=== PATIENT | male | born 1960 | race African-American/Black ===

== ENCOUNTER 2021-05-03 17:09 | Inpatient (IN) | payer MEDICARE, MEDICAID, SELFPAY ==
--- NOTE | ~2021-05-03 | XR_ITS ---
EXAMINATION: XR abdomen/kub 1V EXAM DATE: 05/10/2021 13:32 INDICATION: Abdominal pain/Distention, Pt Had Pd Cath. TECHNIQUE: Frontal projection(s) of the abdomen for interpretation. Correlation is made to CT abdomen pelvis 05/07/2021. FINDINGS: There is peritoneal dialysis catheter. There is severely distended air-filled colon again noted with relatively collapsed descending and sigmoid colon, probably colonic ileus correlating with recent CT scan. Difficult to exclude partial obstruction from underlying colonic mass. Calcification s in the pelvis are believed to be phleboliths. There is no organomegaly. IMPRESSION: Severely distended colon mostly with gas but some stool. Most likely colonic ileus but c an't exclude partial obstruction from underlying colonic mass or stricture. Clinical correlation. Reviewed, dictated and finalized at location G. IMPRESSION: Severely distended colon mostly with gas but some stool. Most like ly colonic ileus but can't exclude partial obstruction from underlying colonic mass or stricture. Clinical correlation.
--- NOTE | ~2021-05-03 | XR_ITS ---
XR enema water soluble DATE: 05/13/2021 11:01 INDICATION: Evaluation for distal colonic obstruction TECHNIQUE: Single contrast water-soluble enema using dilute Omnipaque 350 3.7 minutes fluoroscopy time 179.692 DAP 29 images COMPARISON: 05/12/2021 KUB 05/03/2021 CT abdomen pelvis FINDINGS: There is residual fecal material within the colon, which prevents evaluation for polyps or polypoid mass. Minimal diverticulosis of the left colon. No stricture or obstruction of the colon. The mucosal patterns appear unremarkable. IMPRESSION: No colonic strictures detected Minimal diverticulosis of left colon Reviewed, dictated and finalized at Location A. Reviewed, dictated and finalized at location A.
--- NOTE | ~2021-05-03 | CT_ITS ---
EXAMINATION: CT abdomen pelvis wo con DATE: 05/07/2021 12:16 INDICATION: Peritonitis TECHNIQUE: Computed tomography (CT) of the abdomen and pelvis was performed without intravenous contr ast. The dose-length product (DLP) was 1441.73 mGy-cm. Automated exposure control and iterative recon struction technique were employed. COMPARISON: None FINDINGS: Minimal dependent atelectasis is present in the lung bases. The heart size is normal. There are small pleural effusions. Bilateral gynecomastia is noted. There is a trace pericardial effusion. There is a peritoneal dialysis catheter of the right lower quadrant which coils in the pelvis. There is a moderate volume of ascites. Trace foci of free intraperitoneal gas are seen in the upper abdome n. The liver, spleen, pancreas, gallbladder, and adrenal glands are normal. Cysts of the kidneys lambert ure up to 6 mm on the left. There is atrophy of the kidneys. No pathologically enlarged abdominal or pelvic lymph nodes are identified. There is moderate distention of the colon to the level of the sple dallas flexure. There is a right inguinal hernia containing fat and a large volume of ascites which exte nds into the scrotum. There is moderate lumbar spondylosis. IMPRESSION: 1. Colonic distention to the level of the splenic flexure without definite obstructing mass or strict ure identified, possible ileus. 2. Moderate volume of ascites and free intraperitoneal gas of the upper abdomen, likely related to pe ritoneal dialysis. 3. Right inguinal hernia containing fat and a large volume of ascites extending into the right scrotu m. Reviewed, dictated and finalized at location B. IMPRESSION: 1. Colonic distention to the level of the splenic flexure without definite obst ructing mass or stricture identified, possible ileus. 2. Moderate volume of ascites and free intraperitoneal gas of the upper abdomen , likely related to peritoneal dialysis. 3. Right inguinal hernia containing fat and a large volume of ascites extending into the right scrotum.
--- NOTE | ~2021-05-03 | XR_ITS ---
EXAMINATION: XR abdomen/kub 1V DATE: 05/12/2021 08:24 INDICATION: Adynamic ileus. TECHNIQUE: A supine view of the abdomen on 2 radiographs was obtained. COMPARISON: CT abdomen and pelvis 05/07/2021, abdomen radiographs 05/10/2021 FINDINGS: There are no dilated loops of small bowel. The transverse colon is distended. IMPRESSION: 1. Persistent distention of the transverse colon, which may be secondary to adynamic ileus or colonic obstruction. Reviewed, dictated and finalized at location A. IMPRESSION: 1. Persistent distention of the transverse colon, which may be secondary to karthikeyan namic ileus or colonic obstruction.
--- NOTE | ~2021-05-03 | XR_ITS ---
EXAMINATION: XR fl guide central line place DATE: 05/14/2021 15:43 INDICATION: Central line placement. TECHNIQUE: A single intraoperative fluoroscopic view of the chest was obtained. I was not present. Fl uoroscopy exposure time was 97 seconds. COMPARISON: Chest single view 05/14/2021 FINDINGS: Partially visualized is a right internal jugular central venous catheter. IMPRESSION: 1. Partially visualized right internal jugular central venous catheter. Reviewed, dictated and finalized at location A.
--- NOTE | ~2021-05-03 | XR_ITS ---
EXAMINATION: XR chest 1V portable INDICATION: Shortness of breath TECHNIQUE: Portable AP chest at 1346 hours COMPARISON: 06/14/2008 FINDINGS: There are minimal airspace opacities of the lung bases, right greater than left. There is n o pleural effusion or pneumothorax. The cardiomediastinal silhouette is normal. IMPRESSION: 1. Bibasilar airspace opacities, right greater than left, likely atelectasis. Reviewed, dictated and finalized at location B.
--- NOTE | ~2021-05-03 | XR_ITS ---
EXAMINATION: XR chest port-a-cath/central DATE: 05/14/2021 16:20 INDICATION: Central line placement. TECHNIQUE: A single frontal view of the chest was obtained. COMPARISON: Chest single view 05/04/2021, CT abdomen and pelvis 05/07/2021 FINDINGS: There is mild atelectasis in the mid and lower lung zones. No pleural effusion or pneumotho rax. The heart size is normal. There is a right internal jugular central venous catheter with tip in superior vena cava. IMPRESSION: 1. Central line tip in superior vena cava. 2. Mild atelectasis in the mid and lower lung zones. Reviewed, dictated and finalized at location A.
[2021-05-03 17:12] VITALS: PULSE 99; RESP 20; TEMP 37.1; O2SAT 99
--- NOTE | 2021-05-03 17:30 | PM.IMHP ---
H&P: HPI History of Present Illness Date/Time: 05/03/21 17:30 Chief Complaint: Abdominal pain. Narrative: This is a very pleasant 60-year-old male with end-stage renal disease on peritoneal dialysis, type 2 diabetes mellitus, and hypertension who presented to the emergency department from home for evaluation of abdominal pain. While doing dialysis 4 days ago the connector broke lose and dialysis fluid began to spray. He and his significant rapidly reattached the tubes and he is certain that the catheter was contaminated. Unfortunately he ran out of prophylactic antibiotics at home which he would typically take if something like this happened. Over the past several days he has gradually developed diffuse abdominal discomfort that is aching but occasionally sharp and shooting the with movement. Today he removed some of his peritoneal fluid today at the recommendation of a dialysis nurse and he was told to come to the ER after he noted it to be cloudy. Additionally he has been running a fever up to 102? today. Appetite has been okay and he denies nausea and vomiting. Review of Systems Review of Systems: Twelve systems were reviewed. No cold or flu symptoms. He denies chest pain and shortness of breath. No cough. No sick contacts. Except as documented, all other systems were reviewed and are negative. [facility] Past Medical History Medical History (Updated 05/03/21 @ 22:01 by Naya Trimble PA-C) Asthma End-stage renal disease on peritoneal dialysis Hypertension Insulin dependent type 2 diabetes mellitus Surgical History Surgical History (Updated 05/03/21 @ 21:58 by Naya Trimble PA-C) Amputation toe Presence of peritoneal dialysis catheter Family History Family History Father Diabetes mellitus Mother Diabetes mellitus Social History Social History (Updated 05/03/21 @ 21:59 by Naya Trimble PA-C) Social History: Surrogate decision maker: Corry Andrews (mother) or Ana Andrews (sister). Code status: Full code. Smoking status: Never smoker Second hand tobacco smoke exposure: No Alcohol intake: never Substance use: never Substance use type: does not use Additional living arrangements comments: Lives in [place] with his significant other of many years. He has 3 grown children. Additional occupation/education comments: Disabled. Spiritual care concerns: No Meds Home Medications and Allergies Home Medications Medication Instructions Recorded Confirmed Type B complex-vitamin C-folic acid 1 tablet PO DAILY 05/03/21 05/03/21 History [Christiana-Mirta] albuterol sulfate 2 puff INHALATION BID PRN 05/03/21 05/03/21 History aspirin 1 tablet PO DAILY 05/03/21 05/03/21 History calcium acetate(phosphat bind) 3 mg PO TIDWMEAL 05/03/21 05/03/21 History clonidine HCl 1 mg PO BID PRN 05/03/21 05/03/21 History fluoxetine 20 mg PO DAILY 05/03/21 05/03/21 History furosemide 80 mg PO BID 05/03/21 05/03/21 History insulin lispro protamin-lispro 10 unit SUBCUT BID 05/03/21 05/03/21 History [Humalog Mix 75-25(U-100)Insuln] nifedipine 90 mg PO DAILY 05/03/21 05/03/21 History potassium chloride 20 meq PO DAILY 05/03/21 05/03/21 History Allergies Allergy/AdvReac Type Severity Reaction Status Date / Time No Known Allergies Allergy Mild Unverified 06/14/08 16:10 Vital Signs Vital Signs - 24 hr 05/03/21 17:12 05/03/21 19:21 Temperature 98.8 F Pulse Rate 99 84 Respiratory Rate 20 20 Blood Pressure 139/85 Pulse Oximetry 99 99 Exam Narrative: General: Well-developed male in the semi-Connors position in bed. Weight: 129.5 kg. BMI: 32.2. HEENT: PERRL, EOMI. Sclerae anicteric. Oral mucosa moist. Neck: Supple. No JVD. Respiratory: Lungs are clear to auscultation bilaterally. Cardiovascular: Regular rate and rhythm with S1-S2. Gastrointestinal: Abdomen is slightly distended with was to percussion at the flanks. He is ex
[2021-05-03] MEDS: MORPHINE SULFATE (*CRX) 4 MG/ML INJ IV PUSH (17:43)
[2021-05-03 17:53] LABS: Basophils Percent Auto 0.4 % (0.2-1.2); Eosinophils Percent Auto 0.4 % (0-4.4); Hematocrit 32.1 % (42.0-52.0); Hemoglobin 10.2 g/dL (14.0-18.0); Immature Granulocyte Absolute 0.04 K/mm3 (0.00-0.031); Immature Granulocyte Percent A 0.8 % (0-0.5); Lymphocytes Absolute Auto 1.85 K/mm3 (0.9-3.2); Lymphocytes Percent Auto 38.9 % (18.3-44.2); Mean Corpuscular HGB Conc 31.8 g/dl (32-36); Mean Corpuscular Hemoglobin 30.8 pg (26-34); Mean Platelet Volume 9.6 fl (7.4-10.4); Monocytes Absolute Auto 0.4 K/mm3 (0.1-0.6); Monocytes Percent Auto 8.8 % (2.6-8.5); Neutrophils Absolute Auto 2.4 K/mm3 (1.3-6.7); Neutrophils Percent Auto 50.7 % (45.5-73.1); Platelet Count Result 244 k/mm3 (150-375); Red Blood Count 3.31 M/mm3 (4.6-6.20); White Blood Count 4.8 K/mm3 (4.5-10.0)
[2021-05-03 18:03] LABS: Alanine Aminotransferase 38 U/L (4-50); Alkaline Phosphatase 91 U/L (38-126); Anion Gap 10 mmol/L (8-16); Aspartate Amino Transferase 24 U/L (17-59); Bilirubin,Total 0.7 mg/dL (0.2-1.3); Blood Urea Nitrogen 59 mg/dL (9-20); Calcium 9.1 mg/dL (8.4-10.2); Carbon Dioxide 30 mmol/L (22-30); Chloride 95 mmol/L (98-107); Estimated CRCL calculation 11 ml/min; Estimated Glomerular Filt Rate 6; Glucose 180 mg/dL (65-110); Lipase 187 U/L (23-300); Potassium 3.8 mmol/L (3.4-5.0); Sodium 135 mmol/L (137-145)
--- NOTE | 2021-05-03 18:26 | ED.GENADULT ---
HPI - General Adult General Chief complaint: Abdominal Pain Stated complaint: peritonitis? Time Seen by Provider: 05/03/21 17:17 History of Present Illness HPI narrative: Patient is a 60-year-old male who presents ER with concerns for peritonitis. Patient reports he was give himself dialysis 4 days ago when the connector broke loose and dialysis fluid was spraying around. Him and his significant other rapidly reattached the tubes. He is concerned that he contaminated it. He did not have any antibiotic at home to take to try to prevent peritonitis. He then began developing abdominal pain over the next 3 days. He removed some of his peritoneal fluid today at the recommendation of a dialysis nurse and it was cloudy and he was instructed to come to the ER. Reports fever of 102 ?F earlier in the day. Pain is abdomen is worse with any type of moving. If he hits a bump while in the car he has a lot of pain. He has no nausea or vomiting or diarrhea. No alleviating factors other than sitting still. Related Data Home Medications Medication Instructions Recorded Confirmed B complex-vitamin C-folic acid 1 tablet PO DAILY 05/03/21 05/03/21 [Christiana-Mirta] albuterol sulfate 2 puff INHALATION BID PRN 05/03/21 05/03/21 aspirin 1 tablet PO DAILY 05/03/21 05/03/21 calcium acetate(phosphat bind) 3 mg PO TIDWMEAL 05/03/21 05/03/21 clonidine HCl 1 mg PO BID PRN 05/03/21 05/03/21 fluoxetine 20 mg PO DAILY 05/03/21 05/03/21 furosemide 80 mg PO BID 05/03/21 05/03/21 insulin lispro protamin-lispro 10 unit SUBCUT BID 05/03/21 05/03/21 [Humalog Mix 75-25(U-100)Insuln] nifedipine 90 mg PO DAILY 05/03/21 05/03/21 potassium chloride 20 meq PO DAILY 05/03/21 05/03/21 Allergies Allergy/AdvReac Type Severity Reaction Status Date / Time No Known Allergies Allergy Mild Unverified 06/14/08 16:10 Review of Systems Review of Systems: All systems reviewed & are unremarkable except as noted in HPI and below Constitutional: Constitutional: Denies chills, Denies fever(s) and Denies weakness ENT: Denies nasal congestion and Denies sore throat Cardiovascular: Cardiovascular: Denies chest pain, Denies rapid heart rate and Denies radiating jaw, neck or arm pain Respiratory: Respiratory: Denies cough and Denies dyspnea Gastrointestinal: Gastrointestinal: Reports abdominal pain, Denies diarrhea, Denies nausea and Denies vomiting Neurologic: Denies headache(s), Denies focal weakness and Denies numbness PMFSH Past Medical History Medical History (Updated 05/03/21 @ 21:26 by Sotero Antoine MD) Diabetes ESRD (end stage renal disease) Hypertension Presence of peritoneal dialysis catheter Surgical History Surgical History (Updated 05/03/21 @ 21:26 by Sotero Antoine MD) Amputation toe Family History Family History (Updated 05/03/21 @ 20:16 by Marlene Dailey RN) Father Diabetes mellitus Mother Diabetes mellitus Social History Social History Smoking status: Never smoker Second hand tobacco smoke exposure: No Alcohol intake: never Substance use: never Substance use type: does not use Spiritual care concerns: No Exam Narrative: GENERAL: Well-appearing, well-nourished, and in no acute distress. HEAD: Normocephalic, atraumatic. ENT: Mucous membranes moist. NECK: Supple. CHEST: Clear to auscultation. No respiratory distress. HEART: Regular rate and rhythm. Normal peripheral pulses. ABDOMEN: Soft, diffusely tender with guarding, normal-appearing dialysis site in left lower quadrant. Nondistended. EXTREMITIES: Normal range of motion. No edema. SKIN: Warm, dry, no rash. NEURO: Alert and oriented x3. PSYCH: Normal mood and affect. Course Course Emergency Course: Discussed case with Dr. Campos. He like patient received vancomycin and 1 g of cefepime daily. He will contact dialysis nurse. Patient will be admitted to hospitalist service. Vital Signs Vital signs: Vital Signs Temperature 98.8 F 05/03/21
[2021-05-03 19:21] VITALS: BP 139/85; PULSE 84; RESP 20; O2SAT 99
[2021-05-03 19:45] VITALS: BP 120/50; PULSE 54; RESP 20; TEMP 37; O2SAT 97
[2021-05-03 20:11] VITALS: BMI 32.1
[2021-05-04] MEDS: MORPHINE SULFATE (*CRX) 4 MG/ML INJ IV PUSH ×2 (02:23→07:58)
[2021-05-04 06:00] VITALS: BP 140/77; PULSE 96; RESP 16; TEMP 36.8; O2SAT 96
[2021-05-04 06:10] LABS: Hematocrit 29.7 % (42.0-52.0); Hemoglobin 9.4 g/dL (14.0-18.0); Mean Corpuscular HGB Conc 31.6 g/dl (32-36); Mean Corpuscular Hemoglobin 30.1 pg (26-34); Mean Corpuscular Volume 95.2 fl (80-100); Mean Platelet Volume 9.5 fl (7.4-10.4); Platelet Count Result 231 k/mm3 (150-375); Red Blood Count 3.12 M/mm3 (4.6-6.20); Red Cell Distribution Width 14.6 % (11.5-14.5); White Blood Count 4.6 K/mm3 (4.5-10.0)
[2021-05-04 06:40] LABS: Albumin Level 3.5 g/dL (3.5-5.1); Anion Gap 9 mmol/L (8-16); Blood Urea Nitrogen 58 mg/dL (9-20); CRP 26.1 mg/dL (<1.0); Calcium 8.8 mg/dL (8.4-10.2); Carbon Dioxide 30 mmol/L (22-30); Chloride 94 mmol/L (98-107); Estimated CRCL calculation 12 ml/min; Estimated Glomerular Filt Rate 7; Glucose 202 mg/dL (65-110); Magnesium 1.6 mg/dL (1.6-2.3); Phosphorus 3.7 mg/dL (2.5-4.5); Potassium 3.9 mmol/L (3.4-5.0); Sodium 133 mmol/L (137-145)
[2021-05-04 08:00] VITALS: PULSE 96; RESP 16; O2SAT 96
[2021-05-04 08:23] LABS: Glucose Point of Care 203 mg/dl (65-105)
[2021-05-04] MEDS: FUROSEMIDE 80 MG TABLET PO ×2 (08:57→17:52)
[2021-05-04] MEDS: VITAMIN B CMPLX/VIT C/FOLIC AC 1 CAPSULE 1 CAP PO (08:57)
[2021-05-04] MEDS: ASPIRIN 81 MG CHEWABLE TABLET PO (08:57)
[2021-05-04] MEDS: FLUoxetine HCL 20 MG CAPSULE PO (08:57)
[2021-05-04] MEDS: NIFEdipine 30 MG TAB.ER.24 90 MG PO (08:57)
[2021-05-04] MEDS: POTASSIUM CHLORIDE 20 MEQ TABLET PO (09:03)
[2021-05-04] MEDS: HEPARIN SODIUM 5,000 UNITS/ML VIAL 5000 UNITS SUB-Q ×2 (09:03→20:08)
[2021-05-04] MEDS: INSULIN ASPART (*BKC) 100 UNITS/ML SUB-Q (09:03)
[2021-05-04 09:46] LABS: Vancomycin Random 12.8 ug/mL (10-20)
[2021-05-04] MEDS: CALCIUM ACETATE 667 MG TABLET 2001 MG PO ×3 (09:47→17:52)
[2021-05-04 11:56] LABS: Glucose Point of Care 111 mg/dl (65-105)
[2021-05-04] MEDS: HYDROcodone/acetaminophen (*CRX) 5-325 MG TABLET 1 TAB PO ×3 (12:20→22:56)
[2021-05-04 14:00] VITALS: BP 141/75; PULSE 80; RESP 19; TEMP 36.2; O2SAT 100
--- NOTE | 2021-05-04 15:06 | PM.CNNEP ---
Assessment and Plan Assessment and plan (1) End stage renal disease: Code(s): N18.6 - End stage renal disease Status: Chronic Assessment and Plan: continue CCPD while hospitalized follow electrolytes, volume status, and clearance (2) Peritonitis: Code(s): K65.9 - Peritonitis, unspecified Status: Acute Assessment and Plan: associated with potential contamination doing peritoneal dialysis follow culture data continue vancomycin and cefepime for now follow-up on PD fluid cell count (3) Hypertension: Code(s): I10 - Essential (primary) hypertension Status: Chronic Assessment and Plan: reasonable control at this time continue home medications follow trend of hemodynamics (4) Anemia: Code(s): D64.9 - Anemia, unspecified Status: Chronic Assessment and Plan: due to ESRD and acute illness Epogen while hospitalized follow trend of H/H (5) Diabetes: Code(s): E11.9 - Type 2 diabetes mellitus without complications Status: Chronic Assessment and Plan: follow accuchecks glycemic control Will continue to follow. History of Present Illness Reason for Consult Consult date: 05/04/21 Reason for consult: end stage renal disease Chief Complaint Chief complaint: Peritonitis (dialysis related) History of Present Illness Narrative: The patient is a very pleasant 60-year-old male with a past medical history as outlined below who presented to [facility] Emergency room for further evaluation of abdominal pain. According to the patient, approximately 4 days prior to his presentation to the emergency room, 1 of the connections for his peritoneal dialysis broke loose causing a potential contamination. He and his apparently reattached the tubes as soon as possible when this occurred. Normally, he would take prophylactic antibiotics for a situation like this but apparently he did not have any at home. For reasons that are not clear to me, he did not call the peritoneal dialysis nurse button bradder for further instructions. Unfortunately, in the last few days, he has had diffuse abdominal pain and discomfort particularly with any type of movement. He eventually did contact the peritoneal dialysis nurse button bradder and after telling the story as mentioned, recommended him going to the ER for further evaluation Particularly since he stated that his PD fluid looked a bit cloudy. Workup and evaluation emergency room demonstrated the patient to be hemodynamically stable but unclear discomfort/pain secondary to his abdominal discomfort. Routine blood test demonstrated labs consistent with his known history of end-stage renal disease without any critical electrolyte abnormalities. The patient did report a fever as high as 102 ? on the day of presentation as well. He denied any nausea or vomiting and reports that his appetite has been doing reasonably well. His only major complaint is that of the abdominal pain as already mentioned. Given the history as mentioned above, appropriate cultures were obtained and he was started on IV vancomycin and cefepime on the presumptive diagnosis of dialysis associated peritonitis. He was subsequent admitted to the hospital for further evaluation and therapy. Renal consultation was requested due to his end-stage renal disease. The patient normally does peritoneal dialysis every evening under the care of Dr. Bianchi at [facility]. As far as I am aware, he is compliant with his peritoneal dialysis treatments and has had not had any recent issues or problems with regard to volume overload, hyperkalemia, uremia, or any other complications with his peritoneal dialysis. He does report that he has had peritonitis before in the past that was successfully treated without any significant complication. Currently, at the time my visit, he feels somewhat better since his admission. He di
--- NOTE | 2021-05-04 15:41 | PM.IMPN ---
Progress Note: A&P Assessment and Plan (1) Peritonitis, dialysis-associated: Code(s): T85.71XA - Infection and inflammatory reaction due to peritoneal dialysis catheter, initial encounter Status: Acute Assessment and Plan: Patient presented with abdominal pain and cloudy peritoneal fluid 4 days following contamination of his PD catheter Continue cefepime and vancomycin Peritoneal fluid culture is pending Blood cultures pending Patient without leukocytosis, fever. CRP noted to be elevated and will continue to monitor Analgesics available as needed for abdominal pain (2) End-stage renal disease on peritoneal dialysis: Code(s): N18.6 - End stage renal disease; Z99.2 - Dependence on renal dialysis Status: Acute Assessment and Plan: Maintained on peritoneal dialysis Appreciate nephrology consultation for dialysis management Patient has been set up for dialysis to be continued during admission (3) Insulin dependent type 2 diabetes mellitus: Code(s): E11.9 - Type 2 diabetes mellitus without complications; Z79.4 - [facility] (current) use of insulin Status: Acute Assessment and Plan: A1c is 5.0 Blood sugars elevated on presentation have improved Continue with Accu-Cheks, sliding scale insulin, and hypoglycemic protocol Continue home Humalog 75/25 10 units b.i.d. (4) Hypertension: Code(s): I10 - Essential (primary) hypertension Status: Acute Assessment and Plan: Blood pressure reviewed and has been controlled. Last BP 141/75 Continue nifedipine Monitor blood pressure trends (5) Normocytic anemia: Code(s): D64.9 - Anemia, unspecified Status: Acute Assessment and Plan: Likely chronic secondary to ESRD Monitor H&H Subjective Date/time seen: 05/04/21 15:41 Interval history: Date of service: 05/04/2021 Himanshu Andrews is a 60-year-old male with a history of type 2 diabetes mellitus, hypertension, any ESRD on peritoneal dialysis (established with automobile locator Dr. Bianchi) who is seen in follow-up for dialysis associated peritonitis. He is feeling a bit better today. He still complains abdominal pain in his mid abdomen and around the umbilicus that he describes as an aching or cramping sensation. He states this pain gets up to about 8/10. He did peritoneal dialysis last night and this morning he noticed that the fluid was not clear. He states there was no color to a but it was cloudy. He denies fevers or chills. Denies nausea or vomiting. He is tolerating his diet. He does make urine and has not been any issues urinating. He is able to get up and walk to the bathroom. He denies dizziness, lightheadedness, weakness. Denies shortness of breath, cough, chest pain, or palpitations. Review of Systems Review of Systems: All systems reviewed & are unremarkable except as noted in HPI and below Exam Narrative: General: Well-nourished, well-appearing 60 year-old male, sitting up in bed, comfortable, NARD Neuro: awake, alert and oriented x4, speech clear, no focal neuro deficits noted HEENMT: normocephalic, atraumatic, EOMI, sclerae anicteric, moist oral mucosa Respiratory: clear to auscultation bilaterally, nonlabored breathing Cardio: regular rate, regular rhythm with S1-S2 Abdomen: nondistended, PD catheter in the left lower quadrant, normoactive bowel sounds, soft, minimally tender to palpation in periumbilical region, no rigidity or guarding Extremities: no edema, erythema, or tenderness to palpation, DP pulses 2+ bilaterally Skin: no rashes or lesions, warm and dry Psych: appropriate mood and affect, judgment and insight intact Objective Data Vital Signs Vital Signs: Vital Signs - 24 hr 05/03/21 17:12 05/03/21 19:21 05/03/21 19:45 Temperature 98.8 F 98.6 F Pulse Rate 99 84 54 L Respiratory Rate 20 20 20 Blood Pressure 139/85 120/50 L Pulse Oximetry 99 99 97 05/04/21 06:00 05/04/21 08:00 05/04/21
[2021-05-04 16:21] LABS: Glucose Point of Care 181 mg/dl (65-105)
[2021-05-04 18:16] VITALS: BP 141/75; PULSE 80; RESP 19; TEMP 36.2
[2021-05-04 18:17] VITALS: RESP 19; TEMP 36.2
[2021-05-04 20:40] LABS: Glucose Point of Care 132 mg/dl (65-105)
[2021-05-04] MEDS: MORPHINE SULFATE (*CRX) 2 MG/ML INJ IV PUSH (21:00)
[2021-05-04 22:00] VITALS: BP 166/81; PULSE 81; RESP 16; TEMP 36.3; O2SAT 99
[2021-05-05 02:36] VITALS: O2SAT 99
[2021-05-05] MEDS: MORPHINE SULFATE (*CRX) 2 MG/ML INJ IV PUSH ×2 (02:37→08:31)
[2021-05-05] MEDS: HYDROcodone/acetaminophen (*CRX) 5-325 MG TABLET 1 TAB PO (04:31)
[2021-05-05 05:26] VITALS: BP 156/81; PULSE 80; RESP 18; TEMP 36.1; O2SAT 100
[2021-05-05 06:36] LABS: Hematocrit 28.1 % (42.0-52.0); Hemoglobin 9.4 g/dL (14.0-18.0); Mean Corpuscular HGB Conc 33.5 g/dl (32-36); Mean Corpuscular Hemoglobin 31.3 pg (26-34); Mean Corpuscular Volume 93.7 fl (80-100); Mean Platelet Volume 9.1 fl (7.4-10.4); Platelet Count Result 238 k/mm3 (150-375); Red Cell Distribution Width 14.4 % (11.5-14.5); White Blood Count 5.2 K/mm3 (4.5-10.0)
[2021-05-05 06:53] LABS: Anion Gap 6 mmol/L (8-16); Blood Urea Nitrogen 56 mg/dL (9-20); Calcium 9.1 mg/dL (8.4-10.2); Carbon Dioxide 33 mmol/L (22-30); Chloride 93 mmol/L (98-107); Estimated CRCL calculation 11 ml/min; Estimated Glomerular Filt Rate 6; Glucose 164 mg/dL (65-110); Potassium 4.3 mmol/L (3.4-5.0); Sodium 132 mmol/L (137-145)
[2021-05-05 07:59] LABS: Glucose Point of Care 148 mg/dl (65-105)
[2021-05-05] MEDS: CALCIUM ACETATE 667 MG TABLET 2001 MG PO ×3 (08:10→16:24)
[2021-05-05] MEDS: ASPIRIN 81 MG CHEWABLE TABLET PO (08:12)
[2021-05-05] MEDS: FLUoxetine HCL 20 MG CAPSULE PO (08:13)
[2021-05-05] MEDS: FUROSEMIDE 80 MG TABLET PO ×2 (08:13→16:24)
[2021-05-05] MEDS: NIFEdipine 30 MG TAB.ER.24 90 MG PO (08:14)
[2021-05-05] MEDS: VITAMIN B CMPLX/VIT C/FOLIC AC 1 CAPSULE 1 CAP PO (08:16)
[2021-05-05] MEDS: POTASSIUM CHLORIDE 20 MEQ TABLET PO (08:18)
[2021-05-05] MEDS: HEPARIN SODIUM 5,000 UNITS/ML VIAL 5000 UNITS SUB-Q ×2 (08:19→22:31)
[2021-05-05 09:51] LABS: Vancomycin Random 20.4 ug/mL (10-20)
--- NOTE | 2021-05-05 11:45 | P.PNNP_ITS ---
Progress Note: A&P Assessment and Plan (1) End stage renal disease: Code(s): N18.6 - End stage renal disease Status: Chronic Assessment and Plan: * continue CCPD while hospitalized * follow electrolytes, volume status, and clearance (2) Peritonitis: Code(s): K65.9 - Peritonitis, unspecified Status: Acute Assessment and Plan: * associated with potential contamination doing peritoneal dialysis * PD fluid culture with GNB * continue vancomycin and cefepime for now (but probably ok to d/c vancomycin) * follow-up on PD fluid cell count (3) Hypertension: Code(s): I10 - Essential (primary) hypertension Status: Chronic Assessment and Plan: * reasonable control at this time * continue home medications * follow trend of hemodynamics (4) Anemia: Code(s): D64.9 - Anemia, unspecified Status: Chronic Assessment and Plan: * due to ESRD and acute illness * Epogen while hospitalized * follow trend of H/H (5) Diabetes: Code(s): E11.9 - Type 2 diabetes mellitus without complications Status: Chronic Assessment and Plan: * follow accuchecks * glycemic control Will continue to follow. Subjective Date/time seen: 05/05/21 11:45 Tolerated peritoneal dialysis treament yesterday evening without difficulty although he was in positive fluid balance; abdominal pain still present but better in comparison to admission; eating and drinking okay; no other issues/events overnight or earlier this AM. Exam Narrative: General: WD/WN AA male in NAD Heart: normal S1 and S2; no rub Lungs: clear to auscultation Abdomen: soft, mild TTP, nondistended, positive bowel sounds Extremities: no cyanosis or clubbing; no edema Skin: warm and dry Objective Data Vital Signs Vital Signs: Vital Signs Temp Pulse Resp BP Pulse Ox 05/05/21 05:26 36.1 C L 80 18 156/81 H 100 05/05/21 02:36 99 05/04/21 22:00 36.3 C L 81 16 166/81 H 99 05/04/21 18:17 36.2 C L 19 05/04/21 18:16 36.2 C L 80 19 141/75 H 05/04/21 14:00 36.2 C L 80 19 141/75 H 100 Intake/Output Intake/Output: Intake & Output 03/19/05/03/21 05/04/21 05/05/21 23:59 23:59 23:59 23:59 Intake Total 50 1190 100 Output Total 1311 -469 Balance 50 -163 837 Meds/Results Medications: Active Medications Generic Name Dose Route Start Last Admin Trade Name Freq PRN Reason Stop Dose Admin Acetaminophen 650 mg 05/04/21 15:58 Acetaminophen 325 Mg Tablet PO Q4H PRN Pain 1-5 Hydrocodone Bitart/Acetaminophen 1 tab 05/04/21 15:58 05/05/21 04:31 Hydrocodone/Acetaminophen (*Crx) 5-325 Mg Tablet PO 1 tab Q4H PRN Administration Pain Rated 6-10 Albuterol 2 puff 05/03/21 22:09 Albuterol Sulfate (*Sp) Aerosol 1 Puff INHALATION Q12HRT PRN Adequate Ventilation Aspirin 81 mg 05/04/21 09:00 05/05/21 08:12 Aspirin 81 Mg Chewable Tablet PO 81 mg DAILY KELLIE Administration Calcium Acetate 2,001 mg 05/04/21 08:00 05/05/21 08:10 Calcium Acetate 667 Mg Tablet PO 2,001 mg TIDWM KELLIE Administration Clonidine HCl
--- NOTE | 2021-05-05 11:45 | PM.PNNEP ---
Progress Note: A&P Assessment and Plan (1) End stage renal disease: Code(s): N18.6 - End stage renal disease Status: Chronic Assessment and Plan: continue CCPD while hospitalized follow electrolytes, volume status, and clearance (2) Peritonitis: Code(s): K65.9 - Peritonitis, unspecified Status: Acute Assessment and Plan: associated with potential contamination doing peritoneal dialysis PD fluid culture with GNB continue vancomycin and cefepime for now (but probably ok to d/c vancomycin) follow-up on PD fluid cell count (3) Hypertension: Code(s): I10 - Essential (primary) hypertension Status: Chronic Assessment and Plan: reasonable control at this time continue home medications follow trend of hemodynamics (4) Anemia: Code(s): D64.9 - Anemia, unspecified Status: Chronic Assessment and Plan: due to ESRD and acute illness Epogen while hospitalized follow trend of H/H (5) Diabetes: Code(s): E11.9 - Type 2 diabetes mellitus without complications Status: Chronic Assessment and Plan: follow accuchecks glycemic control Will continue to follow. Subjective Date/time seen: 05/05/21 11:45 Tolerated peritoneal dialysis treament yesterday evening without difficulty although he was in positive fluid balance; abdominal pain still present but better in comparison to admission; eating and drinking okay; no other issues/events overnight or earlier this AM. Exam Narrative: General: WD/WN AA male in NAD Heart: normal S1 and S2; no rub Lungs: clear to auscultation Abdomen: soft, mild TTP, nondistended, positive bowel sounds Extremities: no cyanosis or clubbing; no edema Skin: warm and dry Objective Data Vital Signs Vital Signs: Vital Signs Temp Pulse Resp BP Pulse Ox 05/05/21 05:26 36.1 C L 80 18 156/81 H 100 05/05/21 02:36 99 05/04/21 22:00 36.3 C L 81 16 166/81 H 99 05/04/21 18:17 36.2 C L 19 05/04/21 18:16 36.2 C L 80 19 141/75 H 05/04/21 14:00 36.2 C L 80 19 141/75 H 100 Intake/Output Intake/Output: Intake & Output 05/02/21 05/03/21 05/04/21 05/05/21 23:59 23:59 23:59 23:59 Intake Total 50 1190 100 Output Total 5687 -905 Balance 50 -555 837 Meds/Results Medications: Active Medications Generic Name Dose Route Start Last Admin Trade Name Freq PRN Reason Stop Dose Admin Acetaminophen 650 mg 05/04/21 15:58 Acetaminophen 325 Mg Tablet PO Q4H PRN Pain 1-5 Hydrocodone Bitart/Acetaminophen 1 tab 05/04/21 15:58 05/05/21 04:31 Hydrocodone/Acetaminophen (*Crx) 5-325 Mg Tablet PO 1 tab Q4H PRN Administration Pain Rated 6-10 Albuterol 2 puff 05/03/21 22:09 Albuterol Sulfate (*Sp) Aerosol 1 Puff INHALATION Q12HRT PRN Adequate Ventilation Aspirin 81 mg 05/04/21 09:00 05/05/21 08:12 Aspirin 81 Mg Chewable Tablet PO 81 mg DAILY KELLIE Administration Calcium Acetate 2,001 mg 05/04/21 08:00 05/05/21 08:10 Calcium Acetate 667 Mg Tablet PO 2,001 mg TIDWM KELLIE Administration Clonidine HCl 0.2 mg 05/04/21 16:02 Clonidine Hcl 0.2 Mg Tablet PO BID PRN Hypertension Dextrose 12.5 gm 05/03/21 22:06 Dextrose 50% 25 Gm/50 Ml Syringe IV PUSH PRN PRN Hypoglycemia Protocol Fluoxetine HCl 20 mg 05/04/21 09:00 05/05/21 08:13 Fluoxetine Hcl 20 Mg Capsule PO 20 mg DAILY KELLIE Administration Furosemide 80 mg 05/04/21 09:00 05/05/21 08:13 Furosemide 80 Mg Tablet PO 80 mg BID KELLIE Administration Glucagon 1 mg 05/03/21 22:06 Glucagon For Inj 1 Mg Vial IM PRN PRN Hypoglycemia Protocol Glucose 15 gm 05/03/21 22:06 Glucose Oral Gel 15 Gm Of Glucse In 37.5 Gm Tube PO PRN PRN Hypoglycemia Protocol Heparin Sodium (Porcine) 5,000 units 05/04/21 09:00 05/05/21 08:19 Heparin Sodium 5,000 Units/Ml Vial
[2021-05-05 11:58] LABS: Glucose Point of Care 54 mg/dl (65-105)
[2021-05-05 12:27] LABS: Glucose Point of Care 66 mg/dl (65-105)
[2021-05-05 12:48] LABS: Glucose Point of Care 65 mg/dl (65-105)
[2021-05-05 13:29] LABS: Glucose Point of Care 104 mg/dl (65-105)
[2021-05-05 14:00] VITALS: BP 152/82; PULSE 84; RESP 18; TEMP 36.3; O2SAT 99
--- NOTE | 2021-05-05 14:07 | PM.IMPN ---
Progress Note: A&P Assessment and Plan (1) Peritonitis, dialysis-associated: Code(s): T85.71XA - Infection and inflammatory reaction due to peritoneal dialysis catheter, initial encounter Status: Acute Assessment and Plan: Patient presented with abdominal pain and cloudy peritoneal fluid 4 days following contamination of his PD catheter Preliminary peritoneal fluid culture with Gram-negative bacilli Blood cultures pending, negative to date Continue antibiotic regimen, IV vancomycin and cefepime while awaiting abdominal fluid culture results Patient without leukocytosis, fever. CRP with slight upward trend, will continue to monitor Analgesics available as needed for abdominal pain (2) End-stage renal disease on peritoneal dialysis: Code(s): N18.6 - End stage renal disease; Z99.2 - Dependence on renal dialysis Status: Acute Assessment and Plan: Maintained on peritoneal dialysis Appreciate nephrology consultation for dialysis management Patient has been set up for peritoneal dialysis to be continued during admission Monitor volume status and electrolytes (3) Insulin dependent type 2 diabetes mellitus: Code(s): E11.9 - Type 2 diabetes mellitus without complications; Z79.4 - [facility] (current) use of insulin Status: Acute Assessment and Plan: A1c is 5.0 Blood sugars reviewed and have been stable Patient did have episode of hypoglycemia this afternoon down to 54. He was asymptomatic with this Discontinue home Humalog 75/25 10 units b.i.d.. Patient has stopped taking this and has been off for some time. This likely contributed to hypoglycemic episode Continue with Accu-Cheks, low-dose sliding scale insulin, and hypoglycemic protocol (4) Hypertension: Code(s): I10 - Essential (primary) hypertension Status: Chronic Assessment and Plan: Blood pressure reviewed and has been reasonably controlled. Last BP 156/81 Continue nifedipine Monitor blood pressure trends (5) Normocytic anemia: Code(s): D64.9 - Anemia, unspecified Status: Acute Assessment and Plan: Likely chronic secondary to ESRD Monitor H&H - remaining stable Subjective Date/time seen: 05/05/21 14:07 Interval history: Date of service: 05/05/2021 Himanshu Andrews is a 60-year-old male with a history of type 2 diabetes mellitus, hypertension, any ESRD on peritoneal dialysis (established with chain tender Dr. Bianchi) who is seen in follow-up for dialysis associated peritonitis. Feeling better today. He continues to endorse abdominal pain, though notes that has improved. He rates pain is 7 of 10. He notes today that he has had bacterial peritonitis before and his pain feels the same as it did last. He does still have an appetite and is tolerating his diet. He endorses a mild abdominal fullness. His last bowel movement was 2 days ago. Denies fevers or chills. He denies any difficulties with urination denies shortness breath, cough, chest pain, dizziness, lightheadedness, weakness. He is able to ambulate independently. Review of Systems Review of Systems: All systems reviewed & are unremarkable except as noted in HPI and below Exam Narrative: General: Well-nourished, well-appearing 60 year-old male, sitting up in bed, comfortable, NARD Neuro: awake, alert and oriented x4, speech clear, no focal neuro deficits noted HEENMT: normocephalic, atraumatic, EOMI, sclerae anicteric, moist oral mucosa Respiratory: clear to auscultation bilaterally, nonlabored breathing Cardio: regular rate, regular rhythm with S1-S2 Abdomen: nondistended, PD catheter in the left lower quadrant, normoactive bowel sounds, soft, nontender to palpation, no rigidity or guarding Extremities: no edema, erythema, or tenderness to palpation, DP pulses 2+ bilaterally Skin: no rashes or lesions, warm and dry Psych: appropriate mood and affect, judgment and insight intact Objective Da
[2021-05-05 16:39] LABS: Glucose Point of Care 115 mg/dl (65-105)
[2021-05-05 20:28] LABS: Glucose Point of Care 140 mg/dl (65-105)
[2021-05-05 21:20] VITALS: O2SAT 99
[2021-05-05 22:00] VITALS: BP 144/78; PULSE 88; RESP 18; TEMP 36.3; O2SAT 99
[2021-05-06] MEDS: MORPHINE SULFATE (*CRX) 2 MG/ML INJ IV PUSH ×3 (01:30→23:22)
[2021-05-06] MEDS: HYDROcodone/acetaminophen (*CRX) 5-325 MG TABLET 1 TAB PO ×2 (03:25→12:08)
[2021-05-06 06:00] VITALS: BP 155/83; PULSE 86; RESP 18; TEMP 36.5; O2SAT 99
[2021-05-06 06:35] LABS: Hematocrit 30.3 % (42.0-52.0); Hemoglobin 9.9 g/dL (14.0-18.0); Mean Corpuscular HGB Conc 32.7 g/dl (32-36); Mean Corpuscular Hemoglobin 30.5 pg (26-34); Mean Corpuscular Volume 93.2 fl (80-100); Mean Platelet Volume 9.4 fl (7.4-10.4); Platelet Count Result 320 k/mm3 (150-375); Red Blood Count 3.25 M/mm3 (4.6-6.20); Red Cell Distribution Width 14.1 % (11.5-14.5); White Blood Count 6.6 K/mm3 (4.5-10.0)
[2021-05-06 07:00] LABS: Anion Gap 5 mmol/L (8-16); Blood Urea Nitrogen 57 mg/dL (9-20); Calcium 9.5 mg/dL (8.4-10.2); Carbon Dioxide 34 mmol/L (22-30); Chloride 93 mmol/L (98-107); Estimated CRCL calculation 11 ml/min; Estimated Glomerular Filt Rate 6; Glucose 177 mg/dL (65-110); Potassium 4.1 mmol/L (3.4-5.0); Sodium 132 mmol/L (137-145)
[2021-05-06 07:37] LABS: CRP 36.6 mg/dL (<1.0)
[2021-05-06 08:22] VITALS: O2SAT 99
[2021-05-06 08:26] LABS: Glucose Point of Care 150 mg/dl (65-105)
[2021-05-06] MEDS: NIFEdipine 30 MG TAB.ER.24 90 MG PO (09:27)
[2021-05-06] MEDS: FLUoxetine HCL 20 MG CAPSULE PO (09:27)
[2021-05-06] MEDS: VITAMIN B CMPLX/VIT C/FOLIC AC 1 CAPSULE 1 CAP PO (09:27)
[2021-05-06] MEDS: cloNIDine HCL 0.2 MG TABLET PO (09:28)
[2021-05-06] MEDS: CALCIUM ACETATE 667 MG TABLET 2001 MG PO ×3 (09:28→17:36)
[2021-05-06] MEDS: ASPIRIN 81 MG CHEWABLE TABLET PO (09:28)
[2021-05-06] MEDS: FUROSEMIDE 80 MG TABLET PO ×2 (09:28→17:35)
[2021-05-06 10:00] LABS: Vancomycin Trough 17.7 ug/mL (10.0-20.0)
--- NOTE | 2021-05-06 11:12 | PM.IMPN ---
Progress Note: A&P Assessment and Plan (1) Peritonitis, dialysis-associated: Code(s): T85.71XA - Infection and inflammatory reaction due to peritoneal dialysis catheter, initial encounter Status: Acute Assessment and Plan: Patient presented with abdominal pain and cloudy peritoneal fluid 4 days following contamination of his PD catheter Preliminary peritoneal fluid culture with Gram-negative bacilli Blood cultures pending, negative to date Continue antibiotic regimen, IV vancomycin and cefepime while awaiting abdominal fluid culture results Patient without leukocytosis, fever. CRP with slight upward trend, will continue to monitor Prelim cultures with sensitivity to cefepime, vanc discontinued (2) End-stage renal disease on peritoneal dialysis: Code(s): N18.6 - End stage renal disease; Z99.2 - Dependence on renal dialysis Status: Acute Assessment and Plan: Maintained on peritoneal dialysis Appreciate nephrology consultation for dialysis management Patient has been set up for peritoneal dialysis to be continued during admission Monitor volume status and electrolytes (3) Insulin dependent type 2 diabetes mellitus: Code(s): E11.9 - Type 2 diabetes mellitus without complications; 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 He was asymptomatic with this Discontinue home Humalog 75/25 10 units b.i.d.. Patient has stopped taking this and has been off for some time. This likely contributed to hypoglycemic episode Continue with Accu-Cheks, low-dose sliding scale insulin, and hypoglycemic protocol (4) Hypertension: Code(s): I10 - Essential (primary) hypertension Status: Chronic Assessment and Plan: Blood pressure reviewed and has been reasonably controlled. Last BP 156/81 Continue nifedipine Monitor blood pressure trends (5) Normocytic anemia: Code(s): D64.9 - Anemia, unspecified Status: Acute Assessment and Plan: Likely chronic secondary to ESRD Monitor H&H - remaining stable Subjective Date/time seen: 05/06/21 11:12 Interval history: Himanshu Andrews is a 60-year-old male with a history of type 2 diabetes mellitus, hypertension, any ESRD on peritoneal dialysis (established with virtual office assistant Dr. Bianchi) who is seen in follow-up for dialysis associated peritonitis. Pt states he continues to have abdominal pain which is worst when he is receiving dialysis. He also has some generalized fullness. Has not had a BM in 6 days. no N/V. No fevers overnight. no cp/sob. Review of Systems Review of Systems: All systems reviewed & are unremarkable except as noted in HPI and below Exam Narrative: General: Well-nourished, well-appearing 60 year-old male, sitting up in bed, comfortable, NARD Neuro: awake, alert and oriented x4, speech clear, no focal neuro deficits noted HEENMT: normocephalic, atraumatic, sclerae anicteric, moist oral mucosa Respiratory: clear to auscultation bilaterally, nonlabored breathing Cardio: regular rate, regular rhythm with S1-S2 Abdomen: nondistended, PD catheter in the left lower quadrant, normoactive bowel sounds, soft, nontender to palpation, no rigidity or guarding Extremities: no edema, erythema, or tenderness to palpation, DP pulses 2+ bilaterally Skin: no rashes or lesions, warm and dry Psych: appropriate mood and affect, judgment and insight intact Objective Data Vital Signs Vital Signs: Vital Signs - 24 hr 05/05/21 14:00 05/05/21 21:20 05/05/21 22:00 Temperature 97.3 F L 97.4 F L Pulse Rate 84 88 Respiratory Rate 18 18 Blood Pressure 152/82 H 144/78 H Pulse Oximetry 99 99 99 05/06/21 06:00 05/06/21 08:22 Temperature 97.7 F Pulse Rate 86 Respiratory Rate 18 Blood Pressure 155/83 H Pulse Oximetr
[2021-05-06 11:48] LABS: Glucose Point of Care 162 mg/dl (65-105)
[2021-05-06] MEDS: HEPARIN SODIUM 5,000 UNITS/ML VIAL 5000 UNITS SUB-Q ×2 (12:05→20:16)
[2021-05-06] MEDS: POTASSIUM CHLORIDE 20 MEQ TABLET PO (12:05)
--- NOTE | 2021-05-06 12:28 | P.PNNP_ITS ---
Progress Note: A&P Assessment and Plan (1) End stage renal disease: Code(s): N18.6 - End stage renal disease Status: Chronic Assessment and Plan: * continue CCPD while hospitalized * follow electrolytes, volume status, and clearance * add heparin to PD fluid to see if this helps with pain issues * start bowel regimen as constipation can also impede peritoneal dialysis treatments (2) Peritonitis: Code(s): K65.9 - Peritonitis, unspecified Status: Acute Assessment and Plan: * associated with potential contamination doing peritoneal dialysis * however, Klebsiella is not a typical organism associated with contamination * another possible bowel issue present? * consider further abdominal imaging * PD fluid culture with Klebsiella * continue vancomycin and cefepime for now (but probably ok to d/c vancomycin) - adjust antibiotics as sensitivities allow * check PD fluid cell count (to see if objectively peritonitis is improving) (3) Hypertension: Code(s): I10 - Essential (primary) hypertension Status: Chronic Assessment and Plan: * reasonable control at this time * continue home medications * follow trend of hemodynamics (4) Anemia: Code(s): D64.9 - Anemia, unspecified Status: Chronic Assessment and Plan: * due to ESRD and acute illness * Epogen while hospitalized * follow trend of H/H (5) Diabetes: Code(s): E11.9 - Type 2 diabetes mellitus without complications Status: Chronic Assessment and Plan: * follow accuchecks * glycemic control Will continue to follow. Subjective Date/time seen: 05/06/21 12:28 Was not able to tolerate CCPD treatment last night due to pain so he turned off the PD cycler in the middle of treatment; abdominal pain still present and unfortunately this worse when he does his peritoneal dialysis treatments; continues to have issues with fluid retention despite PD treatments. Exam Narrative: General: WD/WN AA male in NAD Heart: normal S1 and S2; no rub Lungs: clear to auscultation Abdomen: soft, mild TTP, nondistended, positive bowel sounds Extremities: no cyanosis or clubbing; no edema Skin: warm and dry Objective Data Vital Signs Vital Signs: Vital Signs Temp Pulse Resp BP Pulse Ox 05/06/21 08:22 99 05/06/21 06:00 36.5 C 86 18 155/83 H 99 05/05/21 22:00 36.3 C L 88 18 144/78 H 99 05/05/21 21:20 99 Intake/Output Intake/Output: Intake & Output 05/03/21 05/04/21 05/05/21 05/06/21 23:59 23:59 23:59 23:59 Intake Total 50 1240 630 700 Output Total 0217 -758 -0688 Balance 50 -159 295864 808 5602 Meds/Results Medications: Active Medications Generic Name Dose Route Start Last Admin Trade Name Freq PRN Reason Stop Dose Admin Acetaminophen 650 mg 05/04/21 15:58 Acetaminophen 325 Mg Tablet PO Q4H PRN Pain 1-5 Hydrocodone Bitart/Acetaminophen 1 tab 05/04/21 15:58 05/06/21 12:08 Hydrocodone/Acetaminophen (*Crx) 5-325 Mg Tablet PO 1 tab Q4H PRN Administration Pain Rated 6-10 Albuterol 2 puff 05/03/21 22:09 Albuterol Sulfate (*Sp) Aerosol 1 Puff INHALATION Q12HRT PRN Adequate Ventil
--- NOTE | 2021-05-06 12:28 | PM.PNNEP ---
Progress Note: A&P Assessment and Plan (1) End stage renal disease: Code(s): N18.6 - End stage renal disease Status: Chronic Assessment and Plan: continue CCPD while hospitalized follow electrolytes, volume status, and clearance add heparin to PD fluid to see if this helps with pain issues start bowel regimen as constipation can also impede peritoneal dialysis treatments (2) Peritonitis: Code(s): K65.9 - Peritonitis, unspecified Status: Acute Assessment and Plan: associated with potential contamination doing peritoneal dialysis however, Klebsiella is not a typical organism associated with contamination another possible bowel issue present? consider further abdominal imaging PD fluid culture with Klebsiella continue vancomycin and cefepime for now (but probably ok to d/c vancomycin) - adjust antibiotics as sensitivities allow check PD fluid cell count (to see if objectively peritonitis is improving) (3) Hypertension: Code(s): I10 - Essential (primary) hypertension Status: Chronic Assessment and Plan: reasonable control at this time continue home medications follow trend of hemodynamics (4) Anemia: Code(s): D64.9 - Anemia, unspecified Status: Chronic Assessment and Plan: due to ESRD and acute illness Epogen while hospitalized follow trend of H/H (5) Diabetes: Code(s): E11.9 - Type 2 diabetes mellitus without complications Status: Chronic Assessment and Plan: follow accuchecks glycemic control Will continue to follow. Subjective Date/time seen: 05/06/21 12:28 Was not able to tolerate CCPD treatment last night due to pain so he turned off the PD cycler in the middle of treatment; abdominal pain still present and unfortunately this worse when he does his peritoneal dialysis treatments; continues to have issues with fluid retention despite PD treatments. Exam Narrative: General: WD/WN AA male in NAD Heart: normal S1 and S2; no rub Lungs: clear to auscultation Abdomen: soft, mild TTP, nondistended, positive bowel sounds Extremities: no cyanosis or clubbing; no edema Skin: warm and dry Objective Data Vital Signs Vital Signs: Vital Signs Temp Pulse Resp BP Pulse Ox 05/06/21 08:22 99 05/06/21 06:00 36.5 C 86 18 155/83 H 99 05/05/21 22:00 36.3 C L 88 18 144/78 H 99 05/05/21 21:20 99 Intake/Output Intake/Output: Intake & Output 0305/04/21 05/05/21 05/06/21 23:59 23:59 23:59 23:59 Intake Total 50 1240 793 700 Output Total 4466 -107 -5535 Balance 50 -[id number] 716 1595 Meds/Results Medications: Active Medications Generic Name Dose Route Start Last Admin Trade Name Freq PRN Reason Stop Dose Admin Acetaminophen 650 mg 05/04/21 15:58 Acetaminophen 325 Mg Tablet PO Q4H PRN Pain 1-5 Hydrocodone Bitart/Acetaminophen 1 tab 05/04/21 15:58 05/06/21 12:08 Hydrocodone/Acetaminophen (*Crx) 5-325 Mg Tablet PO 1 tab Q4H PRN Administration Pain Rated 6-10 Albuterol 2 puff 05/03/21 22:09 Albuterol Sulfate (*Sp) Aerosol 1 Puff INHALATION Q12HRT PRN Adequate Ventilation Aspirin 81 mg 05/04/21 09:00 05/06/21 09:28 Aspirin 81 Mg Chewable Tablet PO 81 mg DAILY KELLIE Administration Calcium Acetate 2,001 mg 05/04/21 08:00 05/06/21 17:36 Calcium Acetate 667 Mg Tablet PO 2,001 mg TIDWM KELLIE Administration Clonidine HCl 0.2 mg 05/04/21 16:02 05/06/21 09:28 Clonidine Hcl 0.2 Mg Tablet PO 0.2 mg BID PRN Administration Hypertension Dextrose 12.5 gm 05/03/21 22:06 Dextrose 50% 25 Gm/50 Ml Syringe IV PUSH PRN PRN Hypoglycemia Protocol Docusate Sodium 100 mg 05/06/21 21:00 Docusate Sodium 100 Mg Capsule PO Q12HR KELLIE Fluoxetine HCl 20 mg 05/04/21 09:00 05/06/21 09:27 Fluoxetine Hcl 20 Mg Capsule PO 20 mg DAILY KELLIE Administration Furose
[2021-05-06 13:00] VITALS: BP 150/80; PULSE 87; RESP 16; TEMP 36.8; O2SAT 99
[2021-05-06 13:15] VITALS: RESP 16; TEMP 36.8
[2021-05-06 14:00] VITALS: BP 151/81; PULSE 90; RESP 17; TEMP 36.2; O2SAT 100
--- NOTE | 2021-05-06 14:51 | PC.NURSE ---
On 05/06/21, the student, Jorge Luis Neves, provided care and completed [facility] documentation on this patient. I have reviewed the student's documentation and agree with the findings.
[2021-05-06 16:47] LABS: Glucose Point of Care 165 mg/dl (65-105)
[2021-05-06] MEDS: DOCUSATE SODIUM 100 MG CAPSULE PO (20:16)
[2021-05-06 20:36] LABS: Glucose Point of Care 136 mg/dl (65-105)
[2021-05-06 22:00] VITALS: BP 137/73; PULSE 85; RESP 18; TEMP 36.3; O2SAT 100
[2021-05-07] MEDS: HYDROcodone/acetaminophen (*CRX) 5-325 MG TABLET 1 TAB PO ×2 (03:31→11:27)
[2021-05-07 06:00] VITALS: BP 123/74; PULSE 93; RESP 18; TEMP 35.9; O2SAT 98
[2021-05-07 07:11] LABS: Basophils Absolute Auto 0.1 K/mm3 (0.0-0.1); Basophils Percent Auto 0.9 % (0.2-1.2); Eosinophils Absolute Auto 0.2 K/mm3 (0-0.3); Hematocrit 25.5 % (42.0-52.0); Hemoglobin 8.4 g/dL (14.0-18.0); Immature Granulocyte Absolute 0.93 K/mm3 (0.00-0.031); Immature Granulocyte Percent A 9.3 % (0-0.5); Lymphocytes Absolute Auto 2.57 K/mm3 (0.9-3.2); Lymphocytes Percent Auto 25.6 % (18.3-44.2); Mean Corpuscular HGB Conc 32.9 g/dl (32-36); Mean Corpuscular Hemoglobin 30.9 pg (26-34); Mean Corpuscular Volume 93.8 fl (80-100); Mean Platelet Volume 9.3 fl (7.4-10.4); Monocytes Percent Auto 9.7 % (2.6-8.5); Neutrophils Absolute Auto 5.3 K/mm3 (1.3-6.7); Neutrophils Percent Auto 52.5 % (45.5-73.1); Nucleated Red Blood Cells Perc 0.2 % (0.0-0.2); Platelet Count Result 340 k/mm3 (150-375); Red Blood Count 2.72 M/mm3 (4.6-6.20); Red Cell Distribution Width 14.4 % (11.5-14.5)
[2021-05-07 07:27] LABS: Anion Gap 6 mmol/L (8-16); Blood Urea Nitrogen 67 mg/dL (9-20); Calcium 9.2 mg/dL (8.4-10.2); Carbon Dioxide 31 mmol/L (22-30); Chloride 92 mmol/L (98-107); Estimated CRCL calculation 11 ml/min; Estimated Glomerular Filt Rate 6; Glucose 233 mg/dL (65-110); Potassium 4.1 mmol/L (3.4-5.0); Sodium 129 mmol/L (137-145)
[2021-05-07 07:59] LABS: Glucose Point of Care 208 mg/dl (65-105)
[2021-05-07 08:04] LABS: Hepatitis B Surface Antigen Negative (Negative)
[2021-05-07 08:29] LABS: Hepatitis B Surface Anti Res Positive
[2021-05-07] MEDS: CALCIUM ACETATE 667 MG TABLET 2001 MG PO ×3 (09:06→17:55)
[2021-05-07] MEDS: FLUoxetine HCL 20 MG CAPSULE PO (09:06)
[2021-05-07] MEDS: ASPIRIN 81 MG CHEWABLE TABLET PO (09:06)
[2021-05-07] MEDS: NIFEdipine 30 MG TAB.ER.24 90 MG PO (09:06)
[2021-05-07] MEDS: FUROSEMIDE 80 MG TABLET PO ×2 (09:06→17:55)
[2021-05-07] MEDS: VITAMIN B CMPLX/VIT C/FOLIC AC 1 CAPSULE 1 CAP PO (09:06)
[2021-05-07] MEDS: HEPARIN SODIUM 5,000 UNITS/ML VIAL 5000 UNITS SUB-Q ×2 (09:07→20:58)
[2021-05-07] MEDS: POTASSIUM CHLORIDE 20 MEQ TABLET PO (09:07)
[2021-05-07] MEDS: DOCUSATE SODIUM 100 MG CAPSULE PO ×2 (09:07→20:57)
[2021-05-07 10:23] LABS: Vancomycin Random 16.4 ug/mL (10-20)
[2021-05-07 10:41] LABS: Sodium 129 mmol/L (137-145)
--- NOTE | 2021-05-07 11:33 | P.PNIM_ITS ---
Progress Note: A&P Assessment and Plan (1) Peritonitis, dialysis-associated: Code(s): T85.71XA - Infection and inflammatory reaction due to peritoneal dialysis catheter, initial encounter Status: Acute Assessment and Plan: Patient presented with abdominal pain and cloudy peritoneal fluid 4 days following contamination of his PD catheter * Peritoneal fluid culture with growth of Klebsiella oxytoca sensitive to cefepime * Blood cultures pending, negative to date * Continue IV cefepime. Will discontinue vancomycin * Continue antibiotic regimen, IV vancomycin and cefepime while awaiting abdominal fluid culture results * Patient without leukocytosis or fever. CRP with slight upward trend, will continue to monitor * Discussed with exercise physiology professor, Dr. López. He will contact PD nurse to obtain cell count to monitor for response to treatment. Would like to treat with ceftazidime as an outpatient. I have contacted [facility] for further information regarding sensitivities for ceftazidime and they will fax results. Additionally, will obtain CT abdomen/pelvis to evaluate for any other etiology to account for peritonitis as Gram-negative infection from contamination is less common and therefore will rule out any underlying abdominal infection. (2) End-stage renal disease on peritoneal dialysis: Code(s): N18.6 - End stage renal disease; Z99.2 - Dependence on renal dialysis Status: Acute Assessment and Plan: Maintained on peritoneal dialysis * Appreciate nephrology consultation for dialysis management * Patient has been set up for peritoneal dialysis to be continued during admission. Nephrology reports to being will be changed in follow-up as an ou tpatient. * Monitor volume status and electrolytes (3) Insulin dependent type 2 diabetes mellitus: Code(s): E11.9 - Type 2 diabetes mellitus without complications; Z79.4 - detention (current) use of insulin Status: Acute Assessment and Plan: A1c is 5.0 * Blood sugars reviewed and have been stable * Patient did have episode of hypoglycemia down to 54 on 05/05. He was asymptomatic with this * Discontinue home Humalog 75/25 10 units b.i.d.. Patient stopped taking this and has been off for some time. This likely contributed to hypoglycemic episode * Fasting glucose slightly elevated this morning at 200 * Continue with Accu-Cheks, increased to moderate dose sliding scale insulin, and hypoglycemic protocol (4) Hypertension: Code(s): I10 - Essential (primary) hypertension Status: Chronic Assessment and Plan: Blood pressure reviewed and has been reasonably controlled. Last BP 123/74 * Continue nifedipine * Monitor blood pressure trends (5) Normocytic anemia: Code(s): D64.9 - Anemia, unspecified Status: Acute Assessment and Plan: Likely chronic secondary to ESRD * Monitor H&H - remaining stable (6) Hyponatremia: Code(s): E87.1 - Hypo-osmolality and hyponatremia Status: Acute Assessment and Plan: Sodium 129 today * Discussed with nephrology. Reports likely due to PD membrane * Continue to monitor levels closely Subjective Date/time seen: 05/07/21 11:33 Interval history: Date of service: 05/07/2021 Himanshu Andrews is a 60-year-old male with a history of type 2 diabetes mellitus, hypertension, and ESRD on peritoneal dialysis (established with exercise physiology professor Dr. Bianchi) who is seen in follow-up for dialysis associated peritonitis. He is feeling better today. He con
--- NOTE | 2021-05-07 11:33 | PM.IMPN ---
Progress Note: A&P Assessment and Plan (1) Peritonitis, dialysis-associated: Code(s): T85.71XA - Infection and inflammatory reaction due to peritoneal dialysis catheter, initial encounter Status: Acute Assessment and Plan: Patient presented with abdominal pain and cloudy peritoneal fluid 4 days following contamination of his PD catheter Peritoneal fluid culture with growth of Klebsiella oxytoca sensitive to cefepime Blood cultures pending, negative to date Continue IV cefepime. Will discontinue vancomycin Continue antibiotic regimen, IV vancomycin and cefepime while awaiting abdominal fluid culture results Patient without leukocytosis or fever. CRP with slight upward trend, will continue to monitor Discussed with blue crabber, Dr. López. He will contact PD nurse to obtain cell count to monitor for response to treatment. Would like to treat with ceftazidime as an outpatient. I have contacted [facility] for further information regarding sensitivities for ceftazidime and they will fax results. Additionally, will obtain CT abdomen/pelvis to evaluate for any other etiology to account for peritonitis as Gram-negative infection from contamination is less common and therefore will rule out any underlying abdominal infection. (2) End-stage renal disease on peritoneal dialysis: Code(s): N18.6 - End stage renal disease; Z99.2 - Dependence on renal dialysis Status: Acute Assessment and Plan: Maintained on peritoneal dialysis Appreciate nephrology consultation for dialysis management Patient has been set up for peritoneal dialysis to be continued during admission. Nephrology reports to being will be changed in follow-up as an outpatient. Monitor volume status and electrolytes (3) Insulin dependent type 2 diabetes mellitus: Code(s): E11.9 - Type 2 diabetes mellitus without complications; Z79.4 - snf (current) use of insulin Status: Acute Assessment and Plan: A1c is 5.0 Blood sugars reviewed and have been stable Patient did have episode of hypoglycemia down to 54 on 05/05. He was asymptomatic with this Discontinue home Humalog 75/25 10 units b.i.d.. Patient stopped taking this and has been off for some time. This likely contributed to hypoglycemic episode Fasting glucose slightly elevated this morning at 200 Continue with Accu-Cheks, increased to moderate dose sliding scale insulin, and hypoglycemic protocol (4) Hypertension: Code(s): I10 - Essential (primary) hypertension Status: Chronic Assessment and Plan: Blood pressure reviewed and has been reasonably controlled. Last BP 123/74 Continue nifedipine Monitor blood pressure trends (5) Normocytic anemia: Code(s): D64.9 - Anemia, unspecified Status: Acute Assessment and Plan: Likely chronic secondary to ESRD Monitor H&H - remaining stable (6) Hyponatremia: Code(s): E87.1 - Hypo-osmolality and hyponatremia Status: Acute Assessment and Plan: Sodium 129 today Discussed with nephrology. Reports likely due to PD membrane Continue to monitor levels closely Subjective Date/time seen: 05/07/21 11:33 Interval history: Date of service: 05/07/2021 Himanshu Andrews is a 60-year-old male with a history of type 2 diabetes mellitus, hypertension, and ESRD on peritoneal dialysis (established with blue crabber Dr. Bianchi) who is seen in follow-up for dialysis associated peritonitis. He is feeling better today. He continues to endorse abdominal pain which she rates as 7/10 but states it is a ?better 7.? He does complain of abdominal bloating. States he has not had a bowel movement since . He denies nausea or vomiting. He is tolerating his diet. He stated that his peritoneal fluid was clear yesterday. He denies swelling in his extremities. Denies dizziness, lightheadedness, weakness. No fevers or chills. Review of Systems Review
[2021-05-07 12:10] LABS: Glucose Point of Care 161 mg/dl (65-105)
[2021-05-07 14:00] VITALS: BP 146/74; PULSE 92; RESP 18; TEMP 36.4; O2SAT 99
[2021-05-07 14:21] LABS: Appearance Peritoneal Fluid Hazy (Clear); Color Peritoneal Fluid Yellow (Colorless); Nucleated Cells Peritoneal Flu 6029 /uL (0-500); RBC Peritoneal Fluid 1353 /uL (0-100000); Source Peritoneal Fluid Peritoneal Fluid
[2021-05-07 14:32] LABS: Lymphocytes Peritoneal Fluid 16 %; Monocytes Peritoneal Fluid 4 %; Neutrophils Peritoneal Fluid 80 % (0-25)
--- NOTE | 2021-05-07 15:08 | PM.PNNEP ---
Progress Note: A&P Assessment and Plan (1) End stage renal disease: Code(s): N18.6 - End stage renal disease Status: Chronic Assessment and Plan: continue CCPD while hospitalized follow electrolytes, volume status, and clearance add more heparin to PD fluid to see if this helps with pain issues CT scan of abd/pelvis noted (ileus) on bowel regimen changed to clear liquid diet issues with fluid absorption in the last few days with PD treatment - due to infection versus peritoneal membrane failure? if unable to get fluid removal/ultrafiltration done with PD, may need to consider back-up hemodialysis will adjust PD Rx further tonight to address this issue continue current therapy (2) Peritonitis: Code(s): K65.9 - Peritonitis, unspecified Status: Acute Assessment and Plan: associated with potential contamination doing peritoneal dialysis however, Klebsiella is not a typical organism associated with contamination results of CT of abd/pelvis noted PD fluid culture with Klebsiella will give intraperitoneal ceftazidime today to see if this helps expedite treatment PD fluid cell count today still with significant inflammation (3) Hypertension: Code(s): I10 - Essential (primary) hypertension Status: Chronic Assessment and Plan: reasonable control at this time continue home medications follow trend of hemodynamics (4) Anemia: Code(s): D64.9 - Anemia, unspecified Status: Chronic Assessment and Plan: due to ESRD and acute illness Epogen while hospitalized follow trend of H/H (5) Diabetes: Code(s): E11.9 - Type 2 diabetes mellitus without complications Status: Chronic Assessment and Plan: follow accuchecks glycemic control Will continue to follow. Subjective Date/time seen: 05/07/21 15:08 Still with abdominal pain but worse with peritoneal dialysis treatments; more concerning is that he keeps retaining fluid with his dialysis treatments as well; CT scan of abd/pelvis noted; PD fluid cell count noted as well. Exam Narrative: General: WD/WN AA male in NAD Heart: normal S1 and S2; no rub Lungs: clear to auscultation Abdomen: soft, mild TTP with mild distension, positive bowel sounds Extremities: no cyanosis or clubbing; no edema Skin: warm and intact Objective Data Vital Signs Vital Signs: Vital Signs Temp Pulse Resp BP Pulse Ox 05/07/21 14:00 36.4 C L 92 18 146/74 H 99 05/07/21 06:00 35.9 C L 93 18 123/74 98 03/23/22 22:00 36.3 C L 85 18 137/73 100 Intake/Output Intake/Output: Intake & Output 05/04/21 05/05/21 05/06/21 05/07/21 23:59 23:59 23:59 23:59 Intake Total 1240 630 750 260 Output Total 1871 237 1401 100 Balance -483 062 8178 160 Meds/Results Medications: Active Medications Generic Name Dose Route Start Last Admin Trade Name Freq PRN Reason Stop Dose Admin Acetaminophen 650 mg 05/07/21 15:57 Acetaminophen 325 Mg Tablet PO Q4H PRN Pain Hydrocodone Bitart/Acetaminophen 1 tab 05/07/21 15:57 Hydrocodone/Acetaminophen (*Crx) 5-325 Mg Tablet PO Q4H PRN Breakthrough pain Albuterol 2 puff 05/03/21 22:09 Albuterol Sulfate (*Sp) Aerosol 1 Puff INHALATION Q12HRT PRN Adequate Ventilation Aspirin 81 mg 05/04/21 09:00 05/07/21 09:06 Aspirin 81 Mg Chewable Tablet PO 81 mg DAILY KELLIE Administration Calcium Acetate 2,001 mg 05/04/21 08:00 05/07/21 11:28 Calcium Acetate 667 Mg Tablet PO 2,001 mg TIDWM KELLIE Administration Clonidine HCl 0.2 mg 05/04/21 16:02 05/06/21 09:28 Clonidine Hcl 0.2 Mg Tablet PO 0.2 mg BID PRN Administration Hypertension Dextrose 12.5 gm 05/03/21 22:06 Dextrose 50% 25 Gm/50 Ml Syringe IV PUSH PRN PRN Hypoglycemia Protocol Docusate Sodium 100 mg 05/06/21 21:00 05/07/21 09:07 Docusate Sodium 100 Mg Capsule PO 10
--- NOTE | 2021-05-07 15:08 | P.PNNP_ITS ---
Progress Note: A&P Assessment and Plan (1) End stage renal disease: Code(s): N18.6 - End stage renal disease Status: Chronic Assessment and Plan: * continue CCPD while hospitalized * follow electrolytes, volume status, and clearance * add more heparin to PD fluid to see if this helps with pain issues * CT scan of abd/pelvis noted (ileus) * on bowel regimen * changed to clear liquid diet * issues with fluid absorption in the last few days with PD treatment - due to infection versus peritoneal membrane failure? * if unable to get fluid removal/ultrafiltration done with PD, may need to consider back-up hemodialysis * will adjust PD Rx further tonight to address this issue * continue current therapy (2) Peritonitis: Code(s): K65.9 - Peritonitis, unspecified Status: Acute Assessment and Plan: * associated with potential contamination doing peritoneal dialysis * however, Klebsiella is not a typical organism associated with contamination * results of CT of abd/pelvis noted * PD fluid culture with Klebsiella * will give intraperitoneal ceftazidime today to see if this helps expedite treatment * PD fluid cell count today still with significant inflammation (3) Hypertension: Code(s): I10 - Essential (primary) hypertension Status: Chronic Assessment and Plan: * reasonable control at this time * continue home medications * follow trend of hemodynamics (4) Anemia: Code(s): D64.9 - Anemia, unspecified Status: Chronic Assessment and Plan: * due to ESRD and acute illness * Epogen while hospitalized * follow trend of H/H (5) Diabetes: Code(s): E11.9 - Type 2 diabetes mellitus without complications Status: Chronic Assessment and Plan: * follow accuchecks * glycemic control Will continue to follow. Subjective Date/time seen: 05/07/21 15:08 Still with abdominal pain but worse with peritoneal dialysis treatments; more concerning is that he keeps retaining fluid with his dialysis treatments as well; CT scan of abd/pelvis noted; PD fluid cell count noted as well. Exam Narrative: General: WD/WN AA male in NAD Heart: normal S1 and S2; no rub Lungs: clear to auscultation Abdomen: soft, mild TTP with mild distension, positive bowel sounds Extremities: no cyanosis or clubbing; no edema Skin: warm and intact Objective Data Vital Signs Vital Signs: Vital Signs Temp Pulse Resp BP Pulse Ox 05/07/21 14:00 36.4 C L 92 18 146/74 H 99 05/07/21 06:00 35.9 C L 93 18 123/74 98 05/06/21 22:00 36.3 C L 85 18 137/73 100 Intake/Output Intake/Output: Intake & Output 05/04/21 05/05/21 05/06/21 05/07/21 23:59 23:59 23:59 23:59 Intake Total 1240 630 750 260 Output Total 6433 -563 -5213 100 Balance -055 504 4629 160 Meds/Results Medications: Active Medications Generic Name Dose Route Start Last Admin Trade Name Freq PRN Reason Stop Dose Admin Acetaminophen 650 mg 05/07/21 15:57 Acetaminophen 325 Mg Tablet PO Q4H PRN Pain Hydrocodone Bitart/Acetaminophen 1 tab 05/07/21 15:57 Hydrocodone/Acetaminophen (*Crx) 5-325 Mg Tablet PO Q4H PRN Breakthrough pain
[2021-05-07 16:00] VITALS: BP 146/74; PULSE 92; RESP 18; TEMP 36.4; O2SAT 99
[2021-05-07 16:34] LABS: Glucose Point of Care 227 mg/dl (65-105)
[2021-05-07] MEDS: INSULIN ASPART (*BKC) 100 UNITS/ML SUB-Q (17:54)
[2021-05-07] MEDS: BISACODYL 10 MG SUPPOSITORY RECTAL (17:55)
[2021-05-07 20:00] VITALS: BP 140/72; PULSE 87; PULSE 90; RESP 16; RESP 18; TEMP 36.3; O2SAT 100; O2SAT 98
[2021-05-07 20:30] VITALS: RESP 16; TEMP 36.3
[2021-05-07 21:29] VITALS: BP 145/80; PULSE 87; RESP 18; TEMP 36.4; O2SAT 98
[2021-05-08] LABS: Glucose Point of Care 213 mg/dl (65-105)
[2021-05-08] MEDS: HYDROcodone/acetaminophen (*CRX) 5-325 MG TABLET 1 TAB PO ×3 (01:17→23:00)
[2021-05-08 05:52] VITALS: BP 148/88; PULSE 99; RESP 18; TEMP 37; O2SAT 100
[2021-05-08 06:47] LABS: Anion Gap 8 mmol/L (8-16); Blood Urea Nitrogen 69 mg/dL (9-20); Calcium 9.6 mg/dL (8.4-10.2); Carbon Dioxide 30 mmol/L (22-30); Chloride 93 mmol/L (98-107); Estimated CRCL calculation 9 ml/min; Estimated Glomerular Filt Rate 5; Glucose 165 mg/dL (65-110); Sodium 131 mmol/L (137-145)
[2021-05-08 06:49] LABS: Hematocrit 26.9 % (42.0-52.0); Hemoglobin 8.9 g/dL (14.0-18.0); Mean Corpuscular HGB Conc 33.1 g/dl (32-36); Mean Corpuscular Volume 93.7 fl (80-100); Mean Platelet Volume 9.3 fl (7.4-10.4); Platelet Count Result 361 k/mm3 (150-375); Red Blood Count 2.87 M/mm3 (4.6-6.20); White Blood Count 11.4 K/mm3 (4.5-10.0)
[2021-05-08 07:42] LABS: Glucose Point of Care 152 mg/dl (65-105)
[2021-05-08] MEDS: VITAMIN B CMPLX/VIT C/FOLIC AC 1 CAPSULE 1 CAP PO (08:01)
[2021-05-08] MEDS: HEPARIN SODIUM 5,000 UNITS/ML VIAL 5000 UNITS SUB-Q ×2 (08:01→20:32)
[2021-05-08] MEDS: NIFEdipine 30 MG TAB.ER.24 90 MG PO (08:02)
[2021-05-08] MEDS: POTASSIUM CHLORIDE 20 MEQ TABLET PO (08:03)
[2021-05-08] MEDS: CALCIUM ACETATE 667 MG TABLET 2001 MG PO ×3 (08:03→16:56)
[2021-05-08] MEDS: DOCUSATE SODIUM 100 MG CAPSULE PO ×2 (08:03→20:31)
[2021-05-08] MEDS: FLUoxetine HCL 20 MG CAPSULE PO (08:04)
[2021-05-08] MEDS: FUROSEMIDE 80 MG TABLET PO ×2 (08:04→16:56)
[2021-05-08] MEDS: ASPIRIN 81 MG CHEWABLE TABLET PO (08:04)
[2021-05-08] MEDS: polyethylene glycoL 3350 17 GM POWD.PACK PO (08:04)
[2021-05-08] MEDS: EPOETIN ALFA-EPBX 10,000 UNITS/ML VIAL 10000 UNITS SUB-Q (08:27)
[2021-05-08 11:21] LABS: Glucose Point of Care 180 mg/dl (65-105)
--- NOTE | 2021-05-08 12:43 | P.PNIM_ITS ---
Progress Note: A&P Assessment and Plan (1) Peritonitis, dialysis-associated: Qualifiers: Encounter type: subsequent encounter Qualified Code(s): T85.71XD - Infection and inflammatory reaction due to peritoneal dialysis catheter, subsequ ent encounter Code(s): T85.71XA - Infection and inflammatory reaction due to peritoneal dialysis catheter, initial encounter Status: Acute Assessment and Plan: Patient presented with abdominal pain and cloudy peritoneal fluid 4 days following contamination of his PD catheter * Peritoneal fluid culture with growth of Klebsiella oxytoca sensitive to cefepime * Blood cultures pending, negative to date * Continue IV cefepime. Will discontinue vancomycin * Continue antibiotic regimen, IV vancomycin and cefepime while awaiting abdominal fluid culture results * Patient without leukocytosis or fever. CRP with slight upward trend, will continue to monitor * Discussed with appeals officer, Dr. López. He will contact PD nurse to obtain cell count to monitor for response to treatment. Would like to treat with ceftazidime as an outpatient. I have contacted [facility] for further information regarding sensitivities for ceftazidime and they will fax results. Additionally, will obtain CT abdomen/pelvis to evaluate for any other etiology to account for peritonitis as Gram-negative infection from contamination is less common and therefore will rule out any underlying abdominal infection. * There is a likely Ileus per CT. (2) End-stage renal disease on peritoneal dialysis: Code(s): N18.6 - End stage renal disease; Z99.2 - Dependence on renal dialysis Status: Acute Assessment and Plan: Maintained on peritoneal dialysis * Appreciate nephrology consultation for dialysis management * Patient has been set up for peritoneal dialysis to be continued during admission. Nephrology reports to being will be manging and follow-up as an outpatient. * Monitor volume status and electrolytes with daily labs and monitor VS. * Creatinine today is elevated more and the pt. appears to be hypervolemic, although he does not have dyspnea. Nephrology to continue management. (3) Insulin dependent type 2 diabetes mellitus: Code(s): E11.9 - Type 2 diabetes mellitus without complications; Z79.4 - [facility] (current) use of insulin Status: Acute Assessment and Plan: A1c is 5.0 * Blood sugars reviewed and have been stable * Patient did have episode of hypoglycemia down to 54 on 05/05. He was asymptomatic with this * Discontinue home Humalog 75/25 10 units b.i.d.. Patient stopped taking this and has been off for some time. This likely contributed to hypoglycemic episode * Fasting glucose slightly elevated this morning at 180, but this is improved over yesterday. * Continue with Accu-Cheks, increased to moderate dose sliding scale insulin, and hypoglycemic protocol * Clear liquid diet currently. (4) Hypertension: Qualifiers: Hypertension type: primary hypertension Qualified Code(s): I10 - Essential (primary) hypertension Code(s): I10 - Essential (primary) hypertension Status: Chronic Assessment and Plan: Blood pressure reviewed and has been reasonably controlled. Running 140s-150s/70s-80s. * Continue nifedipine * Monitor blood pressure trends, if sustains 150 SBP and high 80s DBP, then consider adding treatment. (5) Normocytic anemia: Code(s): D64.9 - Anemia, unspecified Status: Acute Assessment and Plan: Likely chronic secondary to ESRD
--- NOTE | 2021-05-08 12:43 | PM.IMPN ---
Progress Note: A&P Assessment and Plan (1) Peritonitis, dialysis-associated: Qualifiers: Encounter type: subsequent encounter Qualified Code(s): T85.71XD - Infection and inflammatory reaction due to peritoneal dialysis catheter, subsequent encounter Code(s): T85.71XA - Infection and inflammatory reaction due to peritoneal dialysis catheter, initial encounter Status: Acute Assessment and Plan: Patient presented with abdominal pain and cloudy peritoneal fluid 4 days following contamination of his PD catheter Peritoneal fluid culture with growth of Klebsiella oxytoca sensitive to cefepime Blood cultures pending, negative to date Continue IV cefepime. Will discontinue vancomycin Continue antibiotic regimen, IV vancomycin and cefepime while awaiting abdominal fluid culture results Patient without leukocytosis or fever. CRP with slight upward trend, will continue to monitor Discussed with permit agent, Dr. López. He will contact PD nurse to obtain cell count to monitor for response to treatment. Would like to treat with ceftazidime as an outpatient. I have contacted [facility] for further information regarding sensitivities for ceftazidime and they will fax results. Additionally, will obtain CT abdomen/pelvis to evaluate for any other etiology to account for peritonitis as Gram-negative infection from contamination is less common and therefore will rule out any underlying abdominal infection. There is a likely Ileus per CT. (2) End-stage renal disease on peritoneal dialysis: Code(s): N18.6 - End stage renal disease; Z99.2 - Dependence on renal dialysis Status: Acute Assessment and Plan: Maintained on peritoneal dialysis Appreciate nephrology consultation for dialysis management Patient has been set up for peritoneal dialysis to be continued during admission. Nephrology reports to being will be manging and follow-up as an outpatient. Monitor volume status and electrolytes with daily labs and monitor VS. Creatinine today is elevated more and the pt. appears to be hypervolemic, although he does not have dyspnea. Nephrology to continue management. (3) Insulin dependent type 2 diabetes mellitus: Code(s): E11.9 - Type 2 diabetes mellitus without complications; Z79.4 - watermelon inspector (current) use of insulin Status: Acute Assessment and Plan: A1c is 5.0 Blood sugars reviewed and have been stable Patient did have episode of hypoglycemia down to 54 on 05/05. He was asymptomatic with this Discontinue home Humalog 75/25 10 units b.i.d.. Patient stopped taking this and has been off for some time. This likely contributed to hypoglycemic episode Fasting glucose slightly elevated this morning at 180, but this is improved over yesterday. Continue with Accu-Cheks, increased to moderate dose sliding scale insulin, and hypoglycemic protocol Clear liquid diet currently. (4) Hypertension: Qualifiers: Hypertension type: primary hypertension Qualified Code(s): I10 - Essential (primary) hypertension Code(s): I10 - Essential (primary) hypertension Status: Chronic Assessment and Plan: Blood pressure reviewed and has been reasonably controlled. Running 140s-150s/70s-80s. Continue nifedipine Monitor blood pressure trends, if sustains 150 SBP and high 80s DBP, then consider adding treatment. (5) Normocytic anemia: Code(s): D64.9 - Anemia, unspecified Status: Acute Assessment and Plan: Likely chronic secondary to ESRD Monitor H&H - remaining stable (6) Hyponatremia: Code(s): E87.1 - Hypo-osmolality and hyponatremia Status: Acute Assessment and Plan: Sodium 129 today Discussed with nephrology. Reports likely due to PD membrane Continue to monitor levels closely (7) Ileus: Code(s): K56.7 - Ileus, unspecified Status: Acute Assessment and Plan: - Clear liquid diet f
--- NOTE | 2021-05-08 13:12 | P.PNNP_ITS ---
Progress Note: A&P Assessment and Plan (1) End stage renal disease: Code(s): N18.6 - End stage renal disease Status: Chronic Assessment and Plan: * continue CCPD while hospitalized * however, suboptimal treatments in the last few nights * follow electrolytes, volume status, and clearance * CT scan of abd/pelvis noted (ileus) * on bowel regimen * on clear liquid diet * issues with fluid absorption/cycler alarms in the last few evenings with PD treatment - due to infection versus peritoneal membrane failure? * if unable to get fluid removal/ultrafiltration done with PD, may need to consider back-up hemodialysis * will continue to adjust PD Rx further to address this issue * continue current therapy (2) Peritonitis: Code(s): K65.9 - Peritonitis, unspecified Status: Acute Assessment and Plan: * associated with potential contamination doing peritoneal dialysis * however, Klebsiella is not a typical organism associated with contamination * results of CT of abd/pelvis noted * PD fluid culture with Klebsiella * will give intraperitoneal ceftazidime again tomorrow to see if this helps expedite treatment * last PD fluid cell count still with significant inflammation (3) Hypertension: Qualifiers: Hypertension type: primary hypertension Qualified Code(s): I10 - Essential (primary) hypertension Code(s): I10 - Essential (primary) hypertension Status: Chronic Assessment and Plan: * reasonable control at this time * continue home medications * follow trend of hemodynamics (4) Anemia: Code(s): D64.9 - Anemia, unspecified Status: Chronic Assessment and Plan: * due to ESRD and acute illness * Epogen while hospitalized * follow trend of H/H (5) Diabetes: Code(s): E11.9 - Type 2 diabetes mellitus without complications Status: Chronic Assessment and Plan: * follow accuchecks * glycemic control Long and extensive discussion (> 20 minutes) regarding his ongoing issues with peritoneal dialysis; I voiced my concerns that he is not getting adequate fluid removal and this could be due to the peritonitis but this may be a sign of peritoneal membrane failure as he has had at least 2 or 3 previous episodes of peritonitis inthe past and this may cause damage/scarring to his peritoneal membrane resulting in poor ultrafiltration. I discussed with him that if his PD treatments continue to fail at removing fluid, he may need to transition to hemodialysis (hopefully temporarily but possibly permanently). Will continue to follow. Subjective Date/time seen: 05/08/21 13:12 Patient stopped/aborted his peritoneal dialysis treatment yesterday evening due frequent alarms from PD cycler; abdominal pain is somewhat better; not getting adequate fluid removal from PD at thsi time; no other acute complaints to report. Exam Narrative: General: WD/WN AA male in NAD Heart: normal S1 and S2; no rub Lungs: clear to auscultation Abdomen: soft, mild TTP with mild distension, positive bowel sounds Extremities: no cyanosis or clubbing; no edema Skin: warm and intact Objective Data Vital Signs Vital Signs: Vital Signs Temp Pulse Resp BP Pulse Ox 05/08/21 05:52 37.0 C 99 18 148/88 H 100 05/07/21 21:29 36.4 C 87 18 145/80 H 98 05/07/21 20:30 36.3 C L 16 05/07/21 20:00 36.3 C L 87 18 140/72 98
--- NOTE | 2021-05-08 13:12 | PM.PNNEP ---
Progress Note: A&P Assessment and Plan (1) End stage renal disease: Code(s): N18.6 - End stage renal disease Status: Chronic Assessment and Plan: continue CCPD while hospitalized however, suboptimal treatments in the last few nights follow electrolytes, volume status, and clearance CT scan of abd/pelvis noted (ileus) on bowel regimen on clear liquid diet issues with fluid absorption/cycler alarms in the last few evenings with PD treatment - due to infection versus peritoneal membrane failure? if unable to get fluid removal/ultrafiltration done with PD, may need to consider back-up hemodialysis will continue to adjust PD Rx further to address this issue continue current therapy (2) Peritonitis: Code(s): K65.9 - Peritonitis, unspecified Status: Acute Assessment and Plan: associated with potential contamination doing peritoneal dialysis however, Klebsiella is not a typical organism associated with contamination results of CT of abd/pelvis noted PD fluid culture with Klebsiella will give intraperitoneal ceftazidime again tomorrow to see if this helps expedite treatment last PD fluid cell count still with significant inflammation (3) Hypertension: Qualifiers: Hypertension type: primary hypertension Qualified Code(s): I10 - Essential (primary) hypertension Code(s): I10 - Essential (primary) hypertension Status: Chronic Assessment and Plan: reasonable control at this time continue home medications follow trend of hemodynamics (4) Anemia: Code(s): D64.9 - Anemia, unspecified Status: Chronic Assessment and Plan: due to ESRD and acute illness Epogen while hospitalized follow trend of H/H (5) Diabetes: Code(s): E11.9 - Type 2 diabetes mellitus without complications Status: Chronic Assessment and Plan: follow accuchecks glycemic control Long and extensive discussion (> 20 minutes) regarding his ongoing issues with peritoneal dialysis; I voiced my concerns that he is not getting adequate fluid removal and this could be due to the peritonitis but this may be a sign of peritoneal membrane failure as he has had at least 2 or 3 previous episodes of peritonitis inthe past and this may cause damage/scarring to his peritoneal membrane resulting in poor ultrafiltration. I discussed with him that if his PD treatments continue to fail at removing fluid, he may need to transition to hemodialysis (hopefully temporarily but possibly permanently). Will continue to follow. Subjective Date/time seen: 05/08/21 13:12 Patient stopped/aborted his peritoneal dialysis treatment yesterday evening due frequent alarms from PD cycler; abdominal pain is somewhat better; not getting adequate fluid removal from PD at thsi time; no other acute complaints to report. Exam Narrative: General: WD/WN AA male in NAD Heart: normal S1 and S2; no rub Lungs: clear to auscultation Abdomen: soft, mild TTP with mild distension, positive bowel sounds Extremities: no cyanosis or clubbing; no edema Skin: warm and intact Objective Data Vital Signs Vital Signs: Vital Signs Temp Pulse Resp BP Pulse Ox 05/08/21 05:52 37.0 C 99 18 148/88 H 100 05/07/21 21:29 36.4 C 87 18 145/80 H 98 05/07/21 20:30 36.3 C L 16 05/07/21 20:00 36.3 C L 87 18 140/72 98 05/07/21 16:00 36.4 C L 92 18 146/74 H 99 05/07/21 14:00 36.4 C L 92 18 146/74 H 99 Intake/Output Intake/Output: Intake & Output 05/05/21 05/06/21 05/07/21 05/08/21 23:59 23:59 23:59 23:59 Intake Total 630 750 360 240 Output Total -237 -1401 120 100 Balance 867 2151 240 140 Meds/Results Medications: Active Medications Generic Name Dose Route Start Last Admin Trade Name Freq PRN Reason Stop Dose Admin Acetaminophen 650 mg 05/07/21 15:57 Acetaminophen 325 Mg Tablet PO Q4H PRN Pain Hydrocodone Bitart/Acet
[2021-05-08 14:00] VITALS: BP 158/82; PULSE 91; RESP 20; TEMP 36.4; O2SAT 100
[2021-05-08] MEDS: LACTULOSE 20 GM/30 ML UDC PO ×2 (14:31→16:56)
[2021-05-08 16:39] LABS: Glucose Point of Care 210 mg/dl (65-105)
[2021-05-08] MEDS: INSULIN ASPART (*BKC) 100 UNITS/ML SUB-Q (16:57)
[2021-05-08 18:30] VITALS: BP 158/82; PULSE 91; RESP 20; TEMP 36.4
[2021-05-08 18:45] VITALS: TEMP 36.4
[2021-05-08 20:00] VITALS: PULSE 95; RESP 18; O2SAT 99
[2021-05-08 20:13] LABS: Glucose Point of Care 202 mg/dl (65-105)
[2021-05-08 22:00] VITALS: BP 140/76; PULSE 95; RESP 18; TEMP 36.1; O2SAT 99
[2021-05-09] VITALS (8 sets, daily range): BP systolic 149–160; BP diastolic 82–89; PULSE 92–100; RESP 16; TEMP 35.9–36.4; O2SAT 98
[2021-05-09] MEDS: ACETAMINOPHEN 325 MG TABLET 650 MG PO ×2 (01:17→16:11)
[2021-05-09 07:54] LABS: Basophils Absolute Auto 0.1 K/mm3 (0.0-0.1); Basophils Percent Auto 0.8 % (0.2-1.2); Eosinophils Absolute Auto 0.2 K/mm3 (0-0.3); Eosinophils Percent Auto 1.5 % (0-4.4); Hematocrit 26.6 % (42.0-52.0); Hemoglobin 8.7 g/dL (14.0-18.0); Immature Granulocyte Absolute 1.08 K/mm3 (0.00-0.031); Immature Granulocyte Percent A 8.3 % (0-0.5); Lymphocytes Percent Auto 23.8 % (18.3-44.2); Mean Corpuscular HGB Conc 32.7 g/dl (32-36); Mean Corpuscular Hemoglobin 30.4 pg (26-34); Mean Platelet Volume 8.8 fl (7.4-10.4); Monocytes Absolute Auto 0.8 K/mm3 (0.1-0.6); Monocytes Percent Auto 6.4 % (2.6-8.5); Neutrophils Absolute Auto 7.7 K/mm3 (1.3-6.7); Neutrophils Percent Auto 59.2 % (45.5-73.1); Nucleated Red Blood Cells Absolute Auto 0.1 K/mm3 (0.0-0.012); Nucleated Red Blood Cells Perc 0.5 % (0.0-0.2); Platelet Count Result 404 k/mm3 (150-375); Red Blood Count 2.86 M/mm3 (4.6-6.20); Red Cell Distribution Width 14.4 % (11.5-14.5)
[2021-05-09 08:05] LABS: Alanine Aminotransferase 18 U/L (4-50); Albumin Level 3.2 g/dL (3.5-5.1); Alkaline Phosphatase 136 U/L (38-126); Anion Gap 10 mmol/L (8-16); Aspartate Amino Transferase 47 U/L (17-59); Bilirubin,Total 0.4 mg/dL (0.2-1.3); Blood Urea Nitrogen 70 mg/dL (9-20); Calcium 9.9 mg/dL (8.4-10.2); Carbon Dioxide 30 mmol/L (22-30); Chloride 93 mmol/L (98-107); Estimated CRCL calculation 9 ml/min; Estimated Glomerular Filt Rate 5; Glucose 352 mg/dL (65-110); Magnesium 1.9 mg/dL (1.6-2.3); Potassium 3.9 mmol/L (3.4-5.0); Sodium 133 mmol/L (137-145)
[2021-05-09] MEDS: INSULIN ASPART (*BKC) 100 UNITS/ML SUB-Q (08:10)
[2021-05-09] MEDS: NIFEdipine 30 MG TAB.ER.24 90 MG PO (08:11)
[2021-05-09] MEDS: CALCIUM ACETATE 667 MG TABLET 2001 MG PO ×3 (08:11→17:26)
[2021-05-09] MEDS: POTASSIUM CHLORIDE 20 MEQ TABLET PO (08:12)
[2021-05-09] MEDS: polyethylene glycoL 3350 17 GM POWD.PACK PO (08:12)
[2021-05-09] MEDS: HEPARIN SODIUM 5,000 UNITS/ML VIAL 5000 UNITS SUB-Q ×2 (08:12→20:27)
[2021-05-09] MEDS: VITAMIN B CMPLX/VIT C/FOLIC AC 1 CAPSULE 1 CAP PO (08:12)
[2021-05-09 08:13] LABS: Glucose Point of Care 347 mg/dl (65-105)
[2021-05-09] MEDS: FLUoxetine HCL 20 MG CAPSULE PO (08:13)
[2021-05-09] MEDS: EPOETIN ALFA-EPBX 10,000 UNITS/ML VIAL 10000 UNITS SUB-Q (08:13)
[2021-05-09] MEDS: DOCUSATE SODIUM 100 MG CAPSULE PO ×2 (08:13→20:28)
[2021-05-09] MEDS: ASPIRIN 81 MG CHEWABLE TABLET PO (08:13)
[2021-05-09] MEDS: FUROSEMIDE 80 MG TABLET PO ×2 (08:14→17:27)
[2021-05-09] MEDS: BUMETANIDE INJ 1 MG/4 ML VIAL 2.5 MG IV PUSH (11:30)
[2021-05-09 12:07] LABS: Glucose Point of Care 191 mg/dl (65-105)
--- NOTE | 2021-05-09 13:25 | P.PNNP_ITS ---
Progress Note: A&P Assessment and Plan (1) End stage renal disease: Code(s): N18.6 - End stage renal disease Status: Chronic Assessment and Plan: * continue CCPD while hospitalized * however, suboptimal treatments in the last few nights * no significant fluid removal noted * follow electrolytes, volume status, and clearance * CT scan of abd/pelvis noted (ileus) * on bowel regimen * on clear liquid diet * issues with fluid absorption/cycler alarms in the last few evenings with PD treatments - due to infection versus peritoneal membrane failure? * if unable to get fluid removal/ultrafiltration done with PD, may need to consider back-up hemodialysis * will continue to adjust PD Rx further to address this issue * continue current therapy (2) Peritonitis: Code(s): K65.9 - Peritonitis, unspecified Status: Acute Assessment and Plan: * associated with potential contamination doing peritoneal dialysis * however, Klebsiella is not a typical organism associated with contamination * results of CT of abd/pelvis noted * PD fluid culture with Klebsiella * will give intraperitoneal ceftazidime again today to see if this helps expedite treatment * last PD fluid cell count still with significant inflammation - will recheck today (3) Hypertension: Qualifiers: Hypertension type: primary hypertension Qualified Code(s): I10 - Essential (primary) hypertension Code(s): I10 - Essential (primary) hypertension Status: Chronic Assessment and Plan: * reasonable control at this time * continue home medications * follow trend of hemodynamics (4) Anemia: Code(s): D64.9 - Anemia, unspecified Status: Chronic Assessment and Plan: * due to ESRD and acute illness * Epogen while hospitalized * follow trend of H/H (5) Diabetes: Code(s): E11.9 - Type 2 diabetes mellitus without complications Status: Chronic Assessment and Plan: * follow accuchecks * glycemic control Long and extensive discussion (> 20 minutes) with patient once again as well as his mother by phone regarding my concerns that he is not getting adequate ultrafiltration/fluid removal with CCPD and possibly limited removal of uremic toxins along with the possibility he might require temporary hemodialysis -- they both appeared to voice understanding. Will continue to follow. Subjective Date/time seen: 05/09/21 13:25 Tolerated peritoneal dialysis treatment last night but once again he did not get any ultrafiltration/fluid removal (in fact, he absorbed almost 1600cc); abdominal pain appears to be improving in general; no apparent distress at the time of my visit. Exam Narrative: General: WD/WN AA male in NAD Heart: normal S1 and S2; no rub Lungs: clear to auscultation Abdomen: soft, mild TTP with mild distension, positive bowel sounds Extremities: no cyanosis or clubbing; trace edema Skin: no rash or nodules Objective Data Vital Signs Vital Signs: Vital Signs Temp Pulse Resp BP Pulse Ox 05/09/21 08:00 92 16 98 05/09/21 07:12 35.9 C L 92 16 151/82 H 05/09/21 06:00 35.9 C L 92 16 151/82 H 98 05/08/21 22:00 36.1 C L 95 18 140/76 99 05/08/21 20:00 95 18 99 05/08/21 18:45 36.4 C 05/08/21 18:30 36.4 C 91 20 158/82 H 05/08/21 14:00 36.4 C 91 20 158/8
--- NOTE | 2021-05-09 13:25 | PM.PNNEP ---
Progress Note: A&P Assessment and Plan (1) End stage renal disease: Code(s): N18.6 - End stage renal disease Status: Chronic Assessment and Plan: continue CCPD while hospitalized however, suboptimal treatments in the last few nights no significant fluid removal noted follow electrolytes, volume status, and clearance CT scan of abd/pelvis noted (ileus) on bowel regimen on clear liquid diet issues with fluid absorption/cycler alarms in the last few evenings with PD treatments - due to infection versus peritoneal membrane failure? if unable to get fluid removal/ultrafiltration done with PD, may need to consider back-up hemodialysis will continue to adjust PD Rx further to address this issue continue current therapy (2) Peritonitis: Code(s): K65.9 - Peritonitis, unspecified Status: Acute Assessment and Plan: associated with potential contamination doing peritoneal dialysis however, Klebsiella is not a typical organism associated with contamination results of CT of abd/pelvis noted PD fluid culture with Klebsiella will give intraperitoneal ceftazidime again today to see if this helps expedite treatment last PD fluid cell count still with significant inflammation - will recheck today (3) Hypertension: Qualifiers: Hypertension type: primary hypertension Qualified Code(s): I10 - Essential (primary) hypertension Code(s): I10 - Essential (primary) hypertension Status: Chronic Assessment and Plan: reasonable control at this time continue home medications follow trend of hemodynamics (4) Anemia: Code(s): D64.9 - Anemia, unspecified Status: Chronic Assessment and Plan: due to ESRD and acute illness Epogen while hospitalized follow trend of H/H (5) Diabetes: Code(s): E11.9 - Type 2 diabetes mellitus without complications Status: Chronic Assessment and Plan: follow accuchecks glycemic control Long and extensive discussion (> 20 minutes) with patient once again as well as his mother by phone regarding my concerns that he is not getting adequate ultrafiltration/fluid removal with CCPD and possibly limited removal of uremic toxins along with the possibility he might require temporary hemodialysis -- they both appeared to voice understanding. Will continue to follow. Subjective Date/time seen: 05/09/21 13:25 Tolerated peritoneal dialysis treatment last night but once again he did not get any ultrafiltration/fluid removal (in fact, he absorbed almost 1600cc); abdominal pain appears to be improving in general; no apparent distress at the time of my visit. Exam Narrative: General: WD/WN AA male in NAD Heart: normal S1 and S2; no rub Lungs: clear to auscultation Abdomen: soft, mild TTP with mild distension, positive bowel sounds Extremities: no cyanosis or clubbing; trace edema Skin: no rash or nodules Objective Data Vital Signs Vital Signs: Vital Signs Temp Pulse Resp BP Pulse Ox 05/09/21 08:00 92 16 98 05/09/21 07:12 35.9 C L 92 16 151/82 H 05/09/21 06:00 35.9 C L 92 16 151/82 H 98 05/08/21 22:00 36.1 C L 95 18 140/76 99 05/08/21 20:00 95 18 99 05/08/21 18:45 36.4 C 05/08/21 18:30 36.4 C 91 20 158/82 H 05/08/21 14:00 36.4 C 91 20 158/82 H 100 Intake/Output Intake/Output: Intake & Output 05/06/21 05/07/21 05/08/21 05/09/21 23:59 23:59 23:59 23:59 Intake Total 750 360 290 200 Output Total -1401 120 100 -1665 Balance 2151 411 058 8435 Meds/Results Medications: Active Medications Generic Name Dose Route Start Last Admin Trade Name Freq PRN Reason Stop Dose Admin Acetaminophen 650 mg 05/07/21 15:57 05/09/21 01:17 Acetaminophen 325 Mg Tablet PO 650 mg Q4H PRN Administration Pain Hydrocodone Bitart/Acetaminophen 1 tab 05/07/21 15:57 05/08/21 23:00 Hydrocodone/Acetaminophen (*Crx) 5-325 Mg
--- NOTE | 2021-05-09 13:43 | P.PNIM_ITS ---
Progress Note: A&P Assessment and Plan (1) Peritonitis, dialysis-associated: Qualifiers: Encounter type: subsequent encounter Qualified Code(s): T85.71XD - Infection and inflammatory reaction due to peritoneal dialysis catheter, subsequ ent encounter Code(s): T85.71XA - Infection and inflammatory reaction due to peritoneal dialysis catheter, initial encounter Status: Acute Assessment and Plan: Patient presented with abdominal pain and cloudy peritoneal fluid 4 days following contamination of his PD catheter * Peritoneal fluid culture with growth of Klebsiella oxytoca sensitive to cefepime * Blood cultures pending, negative to date * Continue IV cefepime. Will discontinue vancomycin * Continue antibiotic regimen, IV vancomycin and cefepime while awaiting abdominal fluid culture results * Patient without leukocytosis or fever. CRP with slight upward trend, will continue to monitor * Discussed with wind farm engineer, Dr. López. He will contact PD nurse to obtain cell count to monitor for response to treatment. Would like to treat with ceftazidime as an outpatient. I have contacted [facility] for further information regarding sensitivities for ceftazidime and they will fax results. Additionally, will obtain CT abdomen/pelvis to evaluate for any other etiology to account for peritonitis as Gram-negative infection from contamination is less common and therefore will rule out any underlying abdominal infection. * There is a likely Ileus per CT. * Pt. with some improvement today. Dosing of abx through the PD catheter per Nephrology. (2) End-stage renal disease on peritoneal dialysis: Code(s): N18.6 - End stage renal disease; Z99.2 - Dependence on renal dialysis Status: Acute Assessment and Plan: Maintained on peritoneal dialysis * Appreciate nephrology consultation for dialysis management * Patient has been set up for peritoneal dialysis to be continued during admission. Nephrology reports to being will be manging and follow-up as an outpatient. * Monitor volume status and electrolytes with daily labs and monitor VS. * Creatinine today is elevated more and the pt. appears to be hypervolemic, although he does not have dyspnea. Nephrology to continue management. (3) Insulin dependent type 2 diabetes mellitus: Code(s): E11.9 - Type 2 diabetes mellitus without complications; Z79.4 - intermediate (current) use of insulin Status: Acute Assessment and Plan: A1c is 5.0 * Blood sugars reviewed and have been stable * Patient did have episode of hypoglycemia down to 54 on 05/05. He was asymptomatic with this * Discontinue home Humalog 75/25 10 units b.i.d.. Patient stopped taking this and has been off for some time. This likely contributed to hypoglycemic episode * Fasting glucose slightly elevated this morning at 180, but this is improved over yesterday. * Continue with Accu-Cheks, increased to moderate dose sliding scale insulin, and hypoglycemic protocol * Clear liquid diet currently. (4) Hypertension: Qualifiers: Hypertension type: primary hypertension Qualified Code(s): I10 - Essential (primary) hypertension Code(s): I10 - Essential (primary) hypertension Status: Chronic Assessment and Plan: Blood pressure reviewed and has been reasonably controlled. Running 140s-150s/70s-80s. * Continue nifedipine * Monitor blood pressure trends, if sustains 150 SBP and high 80s DBP, then consider adding treatment. * BP is consistently elevated in the 140s-150s/80s-90s. Will add to the regimen today, a B
--- NOTE | 2021-05-09 13:43 | PM.IMPN ---
Progress Note: A&P Assessment and Plan (1) Peritonitis, dialysis-associated: Qualifiers: Encounter type: subsequent encounter Qualified Code(s): T85.71XD - Infection and inflammatory reaction due to peritoneal dialysis catheter, subsequent encounter Code(s): T85.71XA - Infection and inflammatory reaction due to peritoneal dialysis catheter, initial encounter Status: Acute Assessment and Plan: Patient presented with abdominal pain and cloudy peritoneal fluid 4 days following contamination of his PD catheter Peritoneal fluid culture with growth of Klebsiella oxytoca sensitive to cefepime Blood cultures pending, negative to date Continue IV cefepime. Will discontinue vancomycin Continue antibiotic regimen, IV vancomycin and cefepime while awaiting abdominal fluid culture results Patient without leukocytosis or fever. CRP with slight upward trend, will continue to monitor Discussed with jewel bearing turner, Dr. López. He will contact PD nurse to obtain cell count to monitor for response to treatment. Would like to treat with ceftazidime as an outpatient. I have contacted [facility] for further information regarding sensitivities for ceftazidime and they will fax results. Additionally, will obtain CT abdomen/pelvis to evaluate for any other etiology to account for peritonitis as Gram-negative infection from contamination is less common and therefore will rule out any underlying abdominal infection. There is a likely Ileus per CT. Pt. with some improvement today. Dosing of abx through the PD catheter per Nephrology. (2) End-stage renal disease on peritoneal dialysis: Code(s): N18.6 - End stage renal disease; Z99.2 - Dependence on renal dialysis Status: Acute Assessment and Plan: Maintained on peritoneal dialysis Appreciate nephrology consultation for dialysis management Patient has been set up for peritoneal dialysis to be continued during admission. Nephrology reports to being will be manging and follow-up as an outpatient. Monitor volume status and electrolytes with daily labs and monitor VS. Creatinine today is elevated more and the pt. appears to be hypervolemic, although he does not have dyspnea. Nephrology to continue management. 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 He was asymptomatic with this Discontinue home Humalog 75/25 10 units b.i.d.. Patient stopped taking this and has been off for some time. This likely contributed to hypoglycemic episode Fasting glucose slightly elevated this morning at 180, but this is improved over yesterday. Continue with Accu-Cheks, increased to moderate dose sliding scale insulin, and hypoglycemic protocol Clear liquid diet currently. (4) Hypertension: Qualifiers: Hypertension type: primary hypertension Qualified Code(s): I10 - Essential (primary) hypertension Code(s): I10 - Essential (primary) hypertension Status: Chronic Assessment and Plan: Blood pressure reviewed and has been reasonably controlled. Running 140s-150s/70s-80s. Continue nifedipine Monitor blood pressure trends, if sustains 150 SBP and high 80s DBP, then consider adding treatment. BP is consistently elevated in the 140s-150s/80s-90s. Will add to the regimen today, a Beta Raymond as his pulse is consistently in the 90s. Metoprolol Succinate 25 mg po is added today. Will continue to monitor for effectiveness. (5) Normocytic anemia: Code(s): D64.9 - Anemia, unspecified Status: Acute Assessment and Plan: Likely chronic secondary to ESRD Monitor H&H - remaining stable (6) Hyponatremia: Code(s): E87.1 - Hypo-osmolali
[2021-05-09] MEDS: HYDROcodone/acetaminophen (*CRX) 5-325 MG TABLET 1 TAB PO ×2 (14:02→18:14)
[2021-05-09 16:54] LABS: Glucose Point of Care 180 mg/dl (65-105)
[2021-05-09] MEDS: METOPROLOL SUCCINATE EXT REL 25 MG TABCR PO (17:25)
[2021-05-09] MEDS: LACTULOSE 20 GM/30 ML UDC PO ×2 (17:26→18:15)
[2021-05-09 18:08] LABS: Appearance Peritoneal Fluid Clear (Clear); Color Peritoneal Fluid Colorless (Colorless); Source Peritoneal Fluid Peritoneal Fluid
[2021-05-09 18:09] LABS: Nucleated Cells Peritoneal Flu 838 /uL (0-500); RBC Peritoneal Fluid 138 /uL (0-100000)
[2021-05-09 18:17] LABS: Lymphocytes Peritoneal Fluid 1 %; Monocytes Peritoneal Fluid 3 %; Neutrophils Peritoneal Fluid 90 % (0-25)
[2021-05-09 18:18] LABS: Eosinophils Peritoneal Fluid 2 %; Macrophages Peritoneal Fluid 4 %
[2021-05-09 20:26] LABS: Glucose Point of Care 281 mg/dl (65-105)
[2021-05-10] VITALS (8 sets, daily range): BP systolic 157–166; BP diastolic 89–95; PULSE 85–100; RESP 16–20; TEMP 36.1–36.3; O2SAT 98–100
[2021-05-10] MEDS: HYDROcodone/acetaminophen (*CRX) 5-325 MG TABLET 1 TAB PO ×4 (00:44→20:04)
[2021-05-10 08:39] LABS: Glucose Point of Care 326 mg/dl (65-105)
[2021-05-10] MEDS: ONDANSETRON INJ 4 MG/2 ML VIAL IV PUSH (08:41)
[2021-05-10] MEDS: INSULIN ASPART (*BKC) 100 UNITS/ML SUB-Q ×2 (09:14→13:09)
[2021-05-10] MEDS: CALCIUM ACETATE 667 MG TABLET 2001 MG PO ×3 (09:15→17:32)
[2021-05-10] MEDS: POTASSIUM CHLORIDE 20 MEQ TABLET PO (09:15)
[2021-05-10] MEDS: ASPIRIN 81 MG CHEWABLE TABLET PO (09:15)
[2021-05-10] MEDS: FLUoxetine HCL 20 MG CAPSULE PO (09:15)
[2021-05-10] MEDS: DOCUSATE SODIUM 100 MG CAPSULE PO ×2 (09:17→20:02)
[2021-05-10] MEDS: VITAMIN B CMPLX/VIT C/FOLIC AC 1 CAPSULE 1 CAP PO (09:17)
[2021-05-10] MEDS: polyethylene glycoL 3350 17 GM POWD.PACK PO (09:17)
[2021-05-10] MEDS: NIFEdipine 30 MG TAB.ER.24 90 MG PO (09:18)
[2021-05-10] MEDS: METOPROLOL SUCCINATE EXT REL 25 MG TABCR PO (09:18)
[2021-05-10] MEDS: HEPARIN SODIUM 5,000 UNITS/ML VIAL 5000 UNITS SUB-Q ×2 (09:18→20:02)
[2021-05-10] MEDS: FUROSEMIDE 80 MG TABLET PO ×2 (09:18→17:35)
[2021-05-10 12:16] LABS: Glucose Point of Care 220 mg/dl (65-105)
--- NOTE | 2021-05-10 12:54 | P.PNNP_ITS ---
Progress Note: A&P Assessment and Plan (1) End stage renal disease: Code(s): N18.6 - End stage renal disease Status: Chronic Assessment and Plan: * continue CCPD while hospitalized * better treatment last night * good ultrafiltration/fluid removal acheived * follow electrolytes, volume status, and clearance * last CT scan of abd/pelvis noted (ileus) * on bowel regimen * check KUB/obstructive series given new symptoms (right sided abdominal pain + nausea/vomiting) * continue current therapy (2) Peritonitis: Code(s): K65.9 - Peritonitis, unspecified Status: Acute Assessment and Plan: * associated with potential contamination doing peritoneal dialysis * however, Klebsiella is not a typical organism associated with contamination * results of CT of abd/pelvis noted * PD fluid culture with Klebsiella * intraperitoneal ceftazidime given yesterday to see if this helps expedite treatment * last PD fluid cell count showing significant improvement in inflammation (3) Hypertension: Qualifiers: Hypertension type: primary hypertension Qualified Code(s): I10 - Essential (primary) hypertension Code(s): I10 - Essential (primary) hypertension Status: Chronic Assessment and Plan: * reasonable control at this time * continue home medications * follow trend of hemodynamics (4) Anemia: Code(s): D64.9 - Anemia, unspecified Status: Chronic Assessment and Plan: * due to ESRD and acute illness * Epogen while hospitalized * follow trend of H/H (5) Diabetes: Code(s): E11.9 - Type 2 diabetes mellitus without complications Status: Chronic Assessment and Plan: * follow accuchecks * glycemic control Will continue to follow. Subjective Date/time seen: 05/10/21 12:54 Peritoneal dialysis treatment worked quite well last night with almost 3L fluid removal; repeat PD fluid cell count better as well; still having some abdominal pain more so on the right side associated with some nausea/vomiting. Exam Narrative: General: WD/WN AA male in NAD Heart: normal S1 and S2; no rub Lungs: clear to auscultation Abdomen: soft, mild TTP with mild distension, positive bowel sounds Extremities: no cyanosis or clubbing; trace edema Skin: warm and dry Objective Data Vital Signs Vital Signs: Vital Signs Temp Pulse Resp BP Pulse Ox 05/10/21 09:18 100 05/10/21 08:10 36.1 C L 98 16 160/92 H 05/10/21 08:00 100 16 98 05/10/21 06:00 36.1 C L 98 16 160/92 H 98 05/09/21 22:00 36.1 C L 98 16 160/89 H 98 05/09/21 18:10 36.4 C L 16 05/09/21 18:06 36.4 C L 96 16 149/87 H 05/09/21 17:25 100 05/09/21 14:00 36.4 C L 96 16 149/87 H 98 Intake/Output Intake/Output: Intake & Output 05/07/21 05/08/21 05/09/21 05/10/21 23:59 23:59 23:59 23:59 Intake Total 964 321 0033 75 Output Total 120 100 -1015 3207 Balance 619 975 [id number] 6169 -5520 Meds/Results Medications: Active Medications Generic Name Dose Route Start Last Admin Trade Name Sal[place]q PRN Reason Stop Dose Admin Acetaminophen 650 mg 05/07/21 15:57 05/09/21 16:11 Acetaminophen 325 Mg Tablet PO 650 mg Q4H P
--- NOTE | 2021-05-10 12:54 | PM.PNNEP ---
Progress Note: A&P Assessment and Plan (1) End stage renal disease: Code(s): N18.6 - End stage renal disease Status: Chronic Assessment and Plan: continue CCPD while hospitalized better treatment last night good ultrafiltration/fluid removal acheived follow electrolytes, volume status, and clearance last CT scan of abd/pelvis noted (ileus) on bowel regimen check KUB/obstructive series given new symptoms (right sided abdominal pain + nausea/vomiting) continue current therapy (2) Peritonitis: Code(s): K65.9 - Peritonitis, unspecified Status: Acute Assessment and Plan: associated with potential contamination doing peritoneal dialysis however, Klebsiella is not a typical organism associated with contamination results of CT of abd/pelvis noted PD fluid culture with Klebsiella intraperitoneal ceftazidime given yesterday to see if this helps expedite treatment last PD fluid cell count showing significant improvement in inflammation (3) Hypertension: Qualifiers: Hypertension type: primary hypertension Qualified Code(s): I10 - Essential (primary) hypertension Code(s): I10 - Essential (primary) hypertension Status: Chronic Assessment and Plan: reasonable control at this time continue home medications follow trend of hemodynamics (4) Anemia: Code(s): D64.9 - Anemia, unspecified Status: Chronic Assessment and Plan: due to ESRD and acute illness Epogen while hospitalized follow trend of H/H (5) Diabetes: Code(s): E11.9 - Type 2 diabetes mellitus without complications Status: Chronic Assessment and Plan: follow accuchecks glycemic control Will continue to follow. Subjective Date/time seen: 05/10/21 12:54 Peritoneal dialysis treatment worked quite well last night with almost 3L fluid removal; repeat PD fluid cell count better as well; still having some abdominal pain more so on the right side associated with some nausea/vomiting. Exam Narrative: General: WD/WN AA male in NAD Heart: normal S1 and S2; no rub Lungs: clear to auscultation Abdomen: soft, mild TTP with mild distension, positive bowel sounds Extremities: no cyanosis or clubbing; trace edema Skin: warm and dry Objective Data Vital Signs Vital Signs: Vital Signs Temp Pulse Resp BP Pulse Ox 05/10/21 09:18 100 05/10/21 08:10 36.1 C L 98 16 160/92 H 05/10/21 08:00 100 16 98 05/10/21 06:00 36.1 C L 98 16 160/92 H 98 05/09/21 22:00 36.1 C L 98 16 160/89 H 98 05/09/21 18:10 36.4 C L 16 05/09/21 18:06 36.4 C L 96 16 149/87 H 05/09/21 17:25 100 05/09/21 14:00 36.4 C L 96 16 149/87 H 98 Intake/Output Intake/Output: Intake & Output 05/07/21 05/08/21 05/09/21 05/10/21 23:59 23:59 23:59 23:59 Intake Total 370 871 3227 75 Output Total 120 100 -1015 3207 Balance 970 061 2868 -3132 Meds/Results Medications: Active Medications Generic Name Dose Route Start Last Admin Trade Name Freq PRN Reason Stop Dose Admin Acetaminophen 650 mg 05/07/21 15:57 05/09/21 16:11 Acetaminophen 325 Mg Tablet PO 650 mg Q4H PRN Administration Pain Hydrocodone Bitart/Acetaminophen 1 tab 05/07/21 15:57 05/10/21 00:44 Hydrocodone/Acetaminophen (*Crx) 5-325 Mg Tablet PO 1 tab Q4H PRN Administration Breakthrough pain Albuterol 2 puff 05/03/21 22:09 Albuterol Sulfate (*Sp) Aerosol 1 Puff INHALATION Q12HRT PRN Adequate Ventilation Aspirin 81 mg 05/04/21 09:00 05/10/21 09:15 Aspirin 81 Mg Chewable Tablet PO 81 mg DAILY KELLIE Administration Calcium Acetate 2,001 mg 05/04/21 08:00 05/10/21 09:15 Calcium Acetate 667 Mg Tablet PO 2,001 mg TIDWM KELLIE Administration Clonidine HCl 0.2 mg 05/04/21 16:02 05/06/21 09:28 Clonidine Hcl 0.2 Mg Tablet PO 0.2 mg BID PRN Administration Hypertension Dextrose
[2021-05-10] MEDS: LACTULOSE 20 GM/30 ML UDC PO ×2 (13:41→17:32)
--- NOTE | 2021-05-10 14:18 | PM.IMPN ---
Progress Note: A&P Assessment and Plan (1) Peritonitis, dialysis-associated: Qualifiers: Encounter type: subsequent encounter Qualified Code(s): T85.71XD - Infection and inflammatory reaction due to peritoneal dialysis catheter, subsequent encounter Code(s): T85.71XA - Infection and inflammatory reaction due to peritoneal dialysis catheter, initial encounter Status: Acute Assessment and Plan: Patient presented with abdominal pain and cloudy peritoneal fluid 4 days following contamination of his PD catheter Peritoneal fluid culture with growth of Klebsiella oxytoca sensitive to cefepime Blood cultures pending, negative to date Continue IV cefepime. Dosing of abx through the PD catheter per Nephrology. 05/10/2021 [place] [id number] (2) End-stage renal disease on peritoneal dialysis: Code(s): N18.6 - End stage renal disease; Z99.2 - Dependence on renal dialysis Status: Acute Assessment and Plan: Maintained on peritoneal dialysis nephrology rounding (3) Insulin dependent type 2 diabetes mellitus: Code(s): E11.9 - Type 2 diabetes mellitus without complications; Z79.4 - jail (current) use of insulin Status: Acute Assessment and Plan: A1c is 5.0 accuchecks, SSI . (4) Hypertension: Qualifiers: Hypertension type: primary hypertension Qualified Code(s): I10 - Essential (primary) hypertension Code(s): I10 - Essential (primary) hypertension Status: Chronic Assessment and Plan: Blood pressure reviewed and has been reasonably controlled. Running 140s-150s/70s-80s. Continue nifedipine watch Bps (5) Normocytic anemia: Code(s): D64.9 - Anemia, unspecified Status: Acute Assessment and Plan: Likely chronic secondary to ESRD continue to monitor b (6) Hyponatremia: Code(s): E87.1 - Hypo-osmolality and hyponatremia Status: Acute Assessment and Plan: Sodium 133 today continue to monitor (7) Ileus: Code(s): K56.7 - Ileus, unspecified Status: Resolved Assessment and Plan: - Resolved Subjective Date/time seen: 05/10/21 14:18 Interval history: Date of service: 05/07/2021 Himanshu Andrews is a 60-year-old male with a history of type 2 diabetes mellitus, hypertension, and ESRD on peritoneal dialysis (established with ceramic research engineer Dr. Bianchi) who is seen in follow-up for dialysis associated peritonitis. Pt is doing better pt completed PD yesterday without much pain. Continue current care pt had klebsiella in cultures Review of Systems Review of Systems: All systems reviewed & are unremarkable except as noted in HPI and below Exam Const: General: cooperative and healthy appearing; No in distress Nutritional Appearance: overweight Orientation/consciousness: oriented to person HENMT: Head: normal to inspection Resp: Effort & Inspection: no respiratory distress Auscultation: no rhonchi and no wheezes Cardio: Rate: regular rate Rhythm: regular rhythm GI: Inspection: normal to inspection GI Palp: No abdominal tenderness, No Guarding due to palpation present (GI) and No Hepatomegaly present Auscultation: normal bowel sounds Neuro: General: oriented to person Objective Data Vital Signs Vital Signs: Vital Signs - 24 hr 05/09/21 17:25 05/09/21 18:06 05/09/21 18:10 Temperature 36.4 C L 36.4 C L Pulse Rate 100 96 Respiratory Rate 16 16 Blood Pressure 149/87 H Pulse Oximetry 05/09/21 22:00 05/10/21 06:00 05/10/21 08:00 Temperature 36.1 C L 36.1 C L Pulse Rate 98 98 100 Respiratory Rate 16 16 16 Blood Pressure 160/89 H 160/92 H Pulse Oximetry 98 98 98 05/10/21 08:10 05/10/21 09:18 Temperature 36.1 C L Pulse Rate 98 100 Respiratory Rate 16 Blood Pressure 160/92 H Pulse Oximetry Intake/Output Intake/Output: Intake & Output 05/07/21 05/08/21 05/09/21 05/10/21
[2021-05-10 17:02] LABS: Glucose Point of Care 141 mg/dl (65-105)
[2021-05-10 21:57] LABS: Glucose Point of Care 209 mg/dl (65-105)
[2021-05-10] MEDS: SIMETHICONE 80 MG TAB.CHEW PO (22:40)
[2021-05-11] MEDS: HYDROcodone/acetaminophen (*CRX) 5-325 MG TABLET 1 TAB PO ×3 (03:50→19:31)
[2021-05-11 06:00] VITALS: BP 158/90; PULSE 70; RESP 16; TEMP 36.6; O2SAT 100
[2021-05-11 06:28] LABS: Hematocrit 26.4 % (42.0-52.0); Hemoglobin 8.3 g/dL (14.0-18.0); Mean Corpuscular HGB Conc 31.4 g/dl (32-36); Mean Corpuscular Hemoglobin 30.4 pg (26-34); Mean Corpuscular Volume 96.7 fl (80-100); Mean Platelet Volume 8.9 fl (7.4-10.4); Platelet Count Result 398 k/mm3 (150-375); Red Blood Count 2.73 M/mm3 (4.6-6.20); Red Cell Distribution Width 14.6 % (11.5-14.5)
[2021-05-11 06:39] LABS: Anion Gap 8 mmol/L (8-16); Blood Urea Nitrogen 63 mg/dL (9-20); Calcium 10.5 mg/dL (8.4-10.2); Carbon Dioxide 32 mmol/L (22-30); Chloride 94 mmol/L (98-107); Estimated CRCL calculation 9 ml/min; Estimated Glomerular Filt Rate 5; Glucose 322 mg/dL (65-110); Potassium 4.3 mmol/L (3.4-5.0); Sodium 134 mmol/L (137-145)
[2021-05-11 08:25] LABS: Glucose Point of Care 244 mg/dl (65-105)
[2021-05-11] MEDS: INSULIN ASPART (*BKC) 100 UNITS/ML SUB-Q (09:33)
[2021-05-11] MEDS: HEPARIN SODIUM 5,000 UNITS/ML VIAL 5000 UNITS SUB-Q ×2 (09:46→20:40)
[2021-05-11] MEDS: ASPIRIN 81 MG CHEWABLE TABLET PO (09:47)
[2021-05-11] MEDS: VITAMIN B CMPLX/VIT C/FOLIC AC 1 CAPSULE 1 CAP PO (09:47)
[2021-05-11] MEDS: SIMETHICONE 80 MG TAB.CHEW PO ×4 (09:47→20:40)
[2021-05-11] MEDS: DOCUSATE SODIUM 100 MG CAPSULE PO (09:47)
[2021-05-11 09:48] VITALS: PULSE 88
[2021-05-11] MEDS: METOPROLOL SUCCINATE EXT REL 25 MG TABCR PO (09:48)
[2021-05-11] MEDS: FLUoxetine HCL 20 MG CAPSULE PO (09:49)
[2021-05-11] MEDS: NIFEdipine 30 MG TAB.ER.24 90 MG PO (09:49)
[2021-05-11] MEDS: POTASSIUM CHLORIDE 20 MEQ TABLET PO (09:49)
[2021-05-11] MEDS: FUROSEMIDE 80 MG TABLET PO ×2 (09:49→17:44)
[2021-05-11] MEDS: CALCIUM ACETATE 667 MG TABLET 2001 MG PO ×3 (09:50→17:44)
[2021-05-11] MEDS: polyethylene glycoL 3350 17 GM POWD.PACK PO (09:50)
[2021-05-11 11:20] LABS: Glucose Point of Care 184 mg/dl (65-105)
--- NOTE | 2021-05-11 12:53 | P.PNNP_ITS ---
Progress Note: A&P Assessment and Plan (1) End stage renal disease: Code(s): N18.6 - End stage renal disease Status: Chronic Assessment and Plan: * continue CCP * follow electrolytes, volume status, and clearance * last CT scan of abd/pelvis noted (ileus) * on bowel regimen * however, recent KUB results reviewed * continue current therapy (2) Peritonitis: Code(s): K65.9 - Peritonitis, unspecified Status: Acute Assessment and Plan: * associated with potential contamination doing peritoneal dialysis * however, Klebsiella is not a typical organism associated with contamination * results of CT of abd/pelvis noted * PD fluid culture with Klebsiella * intraperitoneal ceftazidime today to continue to expedite treatment * last PD fluid cell count showing significant improvement in inflammation (3) Hypertension: Qualifiers: Hypertension type: primary hypertension Qualified Code(s): I10 - Essential (primary) hypertension Code(s): I10 - Essential (primary) hypertension Status: Chronic Assessment and Plan: * reasonable control at this time * continue home medications * follow trend of hemodynamics (4) Anemia: Code(s): D64.9 - Anemia, unspecified Status: Chronic Assessment and Plan: * due to ESRD and acute illness * Epogen while hospitalized * follow trend of H/H (5) Diabetes: Code(s): E11.9 - Type 2 diabetes mellitus without complications Status: Chronic Assessment and Plan: * follow accuchecks * glycemic control Will continue to follow. Subjective Date/time seen: 05/11/21 12:53 Peritoneal dialysis treatment went well last night -- PD fluid continues to clear up per patient; still with some abdominal pain but suspect more related to ileus rather than peritonitis; no other acute complaints voiced at this time; feels reasonably well overall in comparison to admission. Exam Narrative: General: WD/WN AA male in NAD Heart: normal S1 and S2; no rub Lungs: clear to auscultation Abdomen: soft, mild TTP with mild distension, positive bowel sounds Extremities: no cyanosis or clubbing; trace edema Skin: warm and dry Objective Data Vital Signs Vital Signs: Vital Signs Temp Pulse Resp BP Pulse Ox 05/11/21 09:48 88 05/11/21 08:00 88 16 100 05/11/21 06:00 36.6 C 70 16 158/90 H 100 05/10/21 22:00 36.3 C L 85 16 166/95 H 100 05/10/21 17:41 36.1 C L 20 05/10/21 17:37 36.1 C L 95 20 157/89 H 05/10/21 14:00 36.1 C L 95 20 157/89 H 100 Intake/Output Intake/Output: Intake & Output 05/08/21 05/09/21 05/10/21 05/11/21 23:59 23:59 23:59 23:59 Intake Total 290 1650 715 360 Output Total 100 -1015 3507 Balance 190 8345 -6992 360 Meds/Results Medications: Active Medications Generic Name Dose Route Start Last Admin Trade Name Freq PRN Reason Stop Dose Admin Acetaminophen 650 mg 05/07/21 15:57 05/09/21 16:11 Acetaminophen 325 Mg Tablet PO 650 mg Q4H PRN Administration Pain Hydrocodone Bitart/Acetaminophen 1 tab 05/07/21 15:57 05/11/21 03:50 Hydrocodone/Acetaminophen (*Crx) 5-325 Mg Tablet PO 1 tab Q4H PRN A
--- NOTE | 2021-05-11 12:53 | PM.PNNEP ---
Progress Note: A&P Assessment and Plan (1) End stage renal disease: Code(s): N18.6 - End stage renal disease Status: Chronic Assessment and Plan: continue CCP follow electrolytes, volume status, and clearance last CT scan of abd/pelvis noted (ileus) on bowel regimen however, recent KUB results reviewed continue current therapy (2) Peritonitis: Code(s): K65.9 - Peritonitis, unspecified Status: Acute Assessment and Plan: associated with potential contamination doing peritoneal dialysis however, Klebsiella is not a typical organism associated with contamination results of CT of abd/pelvis noted PD fluid culture with Klebsiella intraperitoneal ceftazidime today to continue to expedite treatment last PD fluid cell count showing significant improvement in inflammation (3) Hypertension: Qualifiers: Hypertension type: primary hypertension Qualified Code(s): I10 - Essential (primary) hypertension Code(s): I10 - Essential (primary) hypertension Status: Chronic Assessment and Plan: reasonable control at this time continue home medications follow trend of hemodynamics (4) Anemia: Code(s): D64.9 - Anemia, unspecified Status: Chronic Assessment and Plan: due to ESRD and acute illness Epogen while hospitalized follow trend of H/H (5) Diabetes: Code(s): E11.9 - Type 2 diabetes mellitus without complications Status: Chronic Assessment and Plan: follow accuchecks glycemic control Will continue to follow. Subjective Date/time seen: 05/11/21 12:53 Peritoneal dialysis treatment went well last night -- PD fluid continues to clear up per patient; still with some abdominal pain but suspect more related to ileus rather than peritonitis; no other acute complaints voiced at this time; feels reasonably well overall in comparison to admission. Exam Narrative: General: WD/WN AA male in NAD Heart: normal S1 and S2; no rub Lungs: clear to auscultation Abdomen: soft, mild TTP with mild distension, positive bowel sounds Extremities: no cyanosis or clubbing; trace edema Skin: warm and dry Objective Data Vital Signs Vital Signs: Vital Signs Temp Pulse Resp BP Pulse Ox 05/11/21 09:48 88 05/11/21 08:00 88 16 100 05/11/21 06:00 36.6 C 70 16 158/90 H 100 05/10/21 22:00 36.3 C L 85 16 166/95 H 100 05/10/21 17:41 36.1 C L 20 05/10/21 17:37 36.1 C L 95 20 157/89 H 05/10/21 14:00 36.1 C L 95 20 157/89 H 100 Intake/Output Intake/Output: Intake & Output 05/08/21 05/09/21 05/10/21 05/11/21 23:59 23:59 23:59 23:59 Intake Total 290 1650 715 360 Output Total 100 -1015 3507 Balance 190 2665 -1602 360 Meds/Results Medications: Active Medications Generic Name Dose Route Start Last Admin Trade Name Freq PRN Reason Stop Dose Admin Acetaminophen 650 mg 05/07/21 15:57 05/09/21 16:11 Acetaminophen 325 Mg Tablet PO 650 mg Q4H PRN Administration Pain Hydrocodone Bitart/Acetaminophen 1 tab 05/07/21 15:57 05/11/21 03:50 Hydrocodone/Acetaminophen (*Crx) 5-325 Mg Tablet PO 1 tab Q4H PRN Administration Breakthrough pain Albuterol 2 puff 05/03/21 22:09 Albuterol Sulfate (*Sp) Aerosol 1 Puff INHALATION Q12HRT PRN Adequate Ventilation Aspirin 81 mg 05/04/21 09:00 05/11/21 09:47 Aspirin 81 Mg Chewable Tablet PO 81 mg DAILY KELLIE Administration Calcium Acetate 2,001 mg 05/04/21 08:00 05/11/21 09:50 Calcium Acetate 667 Mg Tablet PO 2,001 mg TIDWM KELLIE Administration Clonidine HCl 0.2 mg 05/04/21 16:02 05/06/21 09:28 Clonidine Hcl 0.2 Mg Tablet PO 0.2 mg BID PRN Administration Hypertension Dextrose 12.5 gm 05/03/21 22:06 Dextrose 50% 25 Gm/50 Ml Syringe IV PUSH PRN PRN Hypoglycemia Protocol Docusate Sodium 100 mg 05/06/21 21:00 05/11/21 09:47
[2021-05-11] MEDS: ACETAMINOPHEN 325 MG TABLET 650 MG PO (13:04)
[2021-05-11] MEDS: cloNIDine HCL 0.2 MG TABLET PO (13:36)
[2021-05-11 14:00] VITALS: BP 170/109; PULSE 82; RESP 14; TEMP 35.1; O2SAT 91
[2021-05-11] MEDS: LACTULOSE 20 GM/30 ML UDC PO (14:44)
[2021-05-11 15:41] VITALS: BP 169/104; PULSE 88
[2021-05-11 15:42] VITALS: BP 178/100; PULSE 88
[2021-05-11 16:17] LABS: Glucose Point of Care 169 mg/dl (65-105)
--- NOTE | 2021-05-11 18:46 | PM.IMPN ---
Progress Note: A&P Assessment and Plan (1) Peritonitis, dialysis-associated: Qualifiers: Encounter type: subsequent encounter Qualified Code(s): T85.71XD - Infection and inflammatory reaction due to peritoneal dialysis catheter, subsequent encounter Code(s): T85.71XA - Infection and inflammatory reaction due to peritoneal dialysis catheter, initial encounter Status: Acute Assessment and Plan: Patient presented with abdominal pain and cloudy peritoneal fluid 4 days following contamination of his PD catheter Peritoneal fluid culture with growth of Klebsiella oxytoca sensitive to cefepime Blood cultures pending, negative to date Continue IV cefepime. Dosing of ceftazidime through the PD catheter per Nephrology. 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 (4) Hypertension: Qualifiers: Hypertension type: primary hypertension Qualified Code(s): I10 - Essential (primary) hypertension Code(s): I10 - Essential (primary) hypertension Status: Chronic Assessment and Plan: Blood pressure reviewed and has been reasonably controlled. Running 140s-150s/70s-80s. Continue nifedipine watch Bps Clonidine PRN BP >170/100 (5) Normocytic anemia: Code(s): D64.9 - Anemia, unspecified Status: Acute Assessment and Plan: Likely chronic secondary to ESRD continue to monitor b (6) Hyponatremia: Code(s): E87.1 - Hypo-osmolality and hyponatremia Status: Acute Assessment and Plan: Sodium 133 today continue to monitor (7) Ileus: Code(s): K56.7 - Ileus, unspecified Status: Resolved Assessment and Plan: -Does not appear to be worsening. Subjective Date/time seen: Date of Service 05/11/21 at 1400 Patient has many questions about why he is not receiving the purple tubed fluid like at home when he completes his nightly peritoneal dialysis. Still reports some abdominal pain and tightness. Has many concerns about a new bag with excess fluid connected to his PD catheter. Patient reports having peritonitis about four months ago and requiring IV antibiotics through a PICC line. He says the treatment was completed after about a week. Nursing reports patient has not willingly got out of bed as suggest to help improve his abdominal tightness and prevent ileus or obstruction. Review of Systems Gastrointestinal: Gastrointestinal: Reports abdominal pain Exam Narrative: GENERAL: NAD, cooperative HEENT: Normocephalic, atraumatic, anicteric NECK: Supple CV: Normal S1, S2, RRR, No MRG RESP: CTAB Abdomen: Soft, distended, PD catheter EXTREMITIES: Warm and well perfused, no clubbing, cyanosis. Significant bilateral LE edema SKIN: warm, dry and intact. NEURO:CN 2-12 grossly intact. Objective Data Vital Signs Vital Signs: Vital Signs - 24 hr 05/10/21 22:00 05/11/21 06:00 05/11/21 09:48 Temperature 97.4 F L 97.8 F Pulse Rate 85 70 88 Respiratory Rate 16 16 Blood Pressure 166/95 H 158/90 H Pulse Oximetry 100 100 05/11/21 14:00 05/11/21 15:41 05/11/21 15:42 Temperature 95.2 F L Pulse Rate 82 88 88 Respiratory Rate 14 Blood Pressure 170/109 H 169/104 H 178/100 H Pulse Oximetry 91 Intake/Output Intake/Output: Intake & Output 05/08/21
[2021-05-11 21:27] LABS: Glucose Point of Care 207 mg/dl (65-105)
[2021-05-11 21:35] VITALS: BP 131/88; PULSE 80; RESP 16; TEMP 36.1; O2SAT 100
[2021-05-12] VITALS (9 sets, daily range): BP systolic 145–165; BP diastolic 76–105; PULSE 73–83; RESP 15–21; TEMP 35.7–36.3; O2SAT 100; BMI 32.3
[2021-05-12] MEDS: HYDROcodone/acetaminophen (*CRX) 5-325 MG TABLET 1 TAB PO ×6 (00:47→21:58)
[2021-05-12 06:20] LABS: Basophils Absolute Auto 0.1 K/mm3 (0.0-0.1); Basophils Percent Auto 0.4 % (0.2-1.2); Eosinophils Absolute Auto 0.2 K/mm3 (0-0.3); Eosinophils Percent Auto 1.5 % (0-4.4); Hematocrit 28.6 % (42.0-52.0); Immature Granulocyte Absolute 0.58 K/mm3 (0.00-0.031); Immature Granulocyte Percent A 5.2 % (0-0.5); Lymphocytes Percent Auto 18.7 % (18.3-44.2); Mean Corpuscular HGB Conc 31.5 g/dl (32-36); Mean Corpuscular Hemoglobin 30.8 pg (26-34); Mean Corpuscular Volume 97.9 fl (80-100); Mean Platelet Volume 9.1 fl (7.4-10.4); Monocytes Absolute Auto 0.8 K/mm3 (0.1-0.6); Monocytes Percent Auto 6.9 % (2.6-8.5); Neutrophils Absolute Auto 7.5 K/mm3 (1.3-6.7); Neutrophils Percent Auto 67.3 % (45.5-73.1); Nucleated Red Blood Cells Perc 0.2 % (0.0-0.2); Platelet Count Result 426 k/mm3 (150-375); Red Blood Count 2.92 M/mm3 (4.6-6.20); Red Cell Distribution Width 14.6 % (11.5-14.5); White Blood Count 11.2 K/mm3 (4.5-10.0)
[2021-05-12 07:13] LABS: Anisocytosis 1+ (NORMAL); Platelet Estimate Adequate (Adequate)
[2021-05-12 08:16] LABS: Glucose Point of Care 411 mg/dl (65-105)
[2021-05-12 08:32] LABS: Glucose Point of Care 376 mg/dl (65-105)
[2021-05-12] MEDS: HEPARIN SODIUM 5,000 UNITS/ML VIAL 5000 UNITS SUB-Q ×2 (08:51→21:59)
[2021-05-12] MEDS: INSULIN ASPART (*BKC) 100 UNITS/ML SUB-Q ×2 (08:52→12:10)
[2021-05-12] MEDS: EPOETIN ALFA-EPBX 10,000 UNITS/ML VIAL 10000 UNITS SUB-Q (09:34)
[2021-05-12] MEDS: LACTULOSE 20 GM/30 ML UDC PO (09:37)
[2021-05-12] MEDS: CALCIUM ACETATE 667 MG TABLET 2001 MG PO ×3 (09:37→18:05)
[2021-05-12] MEDS: FUROSEMIDE 80 MG TABLET PO ×2 (09:38→18:06)
[2021-05-12] MEDS: SIMETHICONE 80 MG TAB.CHEW PO ×4 (09:38→23:06)
[2021-05-12] MEDS: ASPIRIN 81 MG CHEWABLE TABLET PO (09:38)
[2021-05-12] MEDS: VITAMIN B CMPLX/VIT C/FOLIC AC 1 CAPSULE 1 CAP PO (09:38)
[2021-05-12] MEDS: polyethylene glycoL 3350 17 GM POWD.PACK PO (09:39)
[2021-05-12] MEDS: NIFEdipine 30 MG TAB.ER.24 90 MG PO (09:40)
[2021-05-12] MEDS: DOCUSATE SODIUM 100 MG CAPSULE PO ×2 (09:40→21:59)
[2021-05-12] MEDS: FLUoxetine HCL 20 MG CAPSULE PO (09:41)
[2021-05-12] MEDS: METOPROLOL SUCCINATE EXT REL 25 MG TABCR PO (09:41)
[2021-05-12] MEDS: POTASSIUM CHLORIDE 20 MEQ TABLET PO (09:45)
--- NOTE | 2021-05-12 11:06 | PCOTNOTE ---
Attempted OT evaluation, despite education on participating with therapy, patient refused reporting to much pain in shoulder. Will follow.
[2021-05-12 12:01] LABS: Glucose Point of Care 241 mg/dl (65-105)
--- NOTE | 2021-05-12 12:09 | P.PNNP_ITS ---
Progress Note: A&P Assessment and Plan (1) End stage renal disease: Code(s): N18.6 - End stage renal disease Status: Chronic Assessment and Plan: * continue CCP * follow electrolytes, volume status, and clearance * last CT scan of abd/pelvis noted (ileus) * on bowel regimen * however, recent KUB results show persistent ileus -- further intervention needed? Surgery consultation?? * continue current therapy (2) Peritonitis: Code(s): K65.9 - Peritonitis, unspecified Status: Acute Assessment and Plan: * associated with potential contamination doing peritoneal dialysis * however, Klebsiella is not a typical organism associated with contamination * results of CT of abd/pelvis noted * PD fluid culture with Klebsiella * continue intermittent intraperitoneal ceftazidime to continue to expedite treatment * last PD fluid cell count showing significant improvement in inflammation (3) Hypertension: Qualifiers: Hypertension type: primary hypertension Qualified Code(s): I10 - Essential (primary) hypertension Code(s): I10 - Essential (primary) hypertension Status: Chronic Assessment and Plan: * reasonable control at this time * continue home medications * follow trend of hemodynamics (4) Anemia: Code(s): D64.9 - Anemia, unspecified Status: Chronic Assessment and Plan: * due to ESRD and acute illness * Epogen while hospitalized * follow trend of H/H (5) Diabetes: Code(s): E11.9 - Type 2 diabetes mellitus without complications Status: Chronic Assessment and Plan: * follow accuchecks * glycemic control Will continue to follow. Subjective Date/time seen: 05/12/21 12:09 CCPD treatments seems to be going well although not as much fluid removal done overnight; minimal pain with peritoneal dialysis treatment at this time; overall, seems to be doing better; no events overnight or earlier this AM. Exam Narrative: General: WD/WN AA male in NAD Heart: normal S1 and S2; no rub Lungs: clear to auscultation Abdomen: soft, mild distension, positive bowel sounds Extremities: no cyanosis or clubbing; trace edema Skin: warm and intact Objective Data Vital Signs Vital Signs: Vital Signs Temp Pulse Resp BP Pulse Ox 05/12/21 11:43 36.3 C L 76 16 158/94 H 100 05/12/21 09:41 83 05/12/21 08:00 36.3 C L 83 15 160/97 H 100 05/12/21 07:10 36.1 C L 80 16 165/105 H 05/12/21 05:36 36.1 C L 80 16 165/105 H 100 05/11/21 21:35 36.1 C L 80 16 131/88 100 05/11/21 15:42 88 178/100 H 05/11/21 15:41 88 169/104 H 05/11/21 14:00 35.1 C L 82 14 170/109 H 91 Intake/Output Intake/Output: Intake & Output 05/09/21 05/10/21 05/11/21 05/12/21 23:59 23:59 23:59 23:59 Intake Total 1650 765 680 680 Output Total -1015 3507 100 -261 Balance 4955 -9851 326 971 Meds/Results Medications: Active Medications Generic Name Dose Route Start Last Admin Trade Name Freq PRN Reason Stop Dose Admin Acetaminophen 650 mg 05/07/21 15:57 05/11/21 13:04 Acetaminophen 325 Mg Tablet PO 650 mg Q4H PRN Administration Pain Hydrocodone Bitart/A
--- NOTE | 2021-05-12 12:09 | PM.PNNEP ---
Progress Note: A&P Assessment and Plan (1) End stage renal disease: Code(s): N18.6 - End stage renal disease Status: Chronic Assessment and Plan: continue CCP follow electrolytes, volume status, and clearance last CT scan of abd/pelvis noted (ileus) on bowel regimen however, recent KUB results show persistent ileus -- further intervention needed? Surgery consultation?? continue current therapy (2) Peritonitis: Code(s): K65.9 - Peritonitis, unspecified Status: Acute Assessment and Plan: associated with potential contamination doing peritoneal dialysis however, Klebsiella is not a typical organism associated with contamination results of CT of abd/pelvis noted PD fluid culture with Klebsiella continue intermittent intraperitoneal ceftazidime to continue to expedite treatment last PD fluid cell count showing significant improvement in inflammation (3) Hypertension: Qualifiers: Hypertension type: primary hypertension Qualified Code(s): I10 - Essential (primary) hypertension Code(s): I10 - Essential (primary) hypertension Status: Chronic Assessment and Plan: reasonable control at this time continue home medications follow trend of hemodynamics (4) Anemia: Code(s): D64.9 - Anemia, unspecified Status: Chronic Assessment and Plan: due to ESRD and acute illness Epogen while hospitalized follow trend of H/H (5) Diabetes: Code(s): E11.9 - Type 2 diabetes mellitus without complications Status: Chronic Assessment and Plan: follow accuchecks glycemic control Will continue to follow. Subjective Date/time seen: 05/12/21 12:09 CCPD treatments seems to be going well although not as much fluid removal done overnight; minimal pain with peritoneal dialysis treatment at this time; overall, seems to be doing better; no events overnight or earlier this AM. Exam Narrative: General: WD/WN AA male in NAD Heart: normal S1 and S2; no rub Lungs: clear to auscultation Abdomen: soft, mild distension, positive bowel sounds Extremities: no cyanosis or clubbing; trace edema Skin: warm and intact Objective Data Vital Signs Vital Signs: Vital Signs Temp Pulse Resp BP Pulse Ox 05/12/21 11:43 36.3 C L 76 16 158/94 H 100 05/12/21 09:41 83 05/12/21 08:00 36.3 C L 83 15 160/97 H 100 05/12/21 07:10 36.1 C L 80 16 165/105 H 05/12/21 05:36 36.1 C L 80 16 165/105 H 100 05/11/21 21:35 36.1 C L 80 16 131/88 100 05/11/21 15:42 88 178/100 H 05/11/21 15:41 88 169/104 H 05/11/21 14:00 35.1 C L 82 14 170/109 H 91 Intake/Output Intake/Output: Intake & Output 05/09/21 05/10/21 05/11/21 05/12/21 23:59 23:59 23:59 23:59 Intake Total 1650 765 680 680 Output Total -1015 3507 100 -261 Balance 6375 -7102 580 941 Meds/Results Medications: Active Medications Generic Name Dose Route Start Last Admin Trade Name Freq PRN Reason Stop Dose Admin Acetaminophen 650 mg 05/07/21 15:57 05/11/21 13:04 Acetaminophen 325 Mg Tablet PO 650 mg Q4H PRN Administration Pain Hydrocodone Bitart/Acetaminophen 1 tab 05/07/21 15:57 05/12/21 09:53 Hydrocodone/Acetaminophen (*Crx) 5-325 Mg Tablet PO 1 tab Q4H PRN Administration Breakthrough pain Albuterol 2 puff 05/03/21 22:09 Albuterol Sulfate (*Sp) Aerosol 1 Puff INHALATION Q12HRT PRN Adequate Ventilation Aspirin 81 mg 05/04/21 09:00 05/12/21 09:38 Aspirin 81 Mg Chewable Tablet PO 81 mg DAILY KELLIE Administration Calcium Acetate 2,001 mg 05/04/21 08:00 05/12/21 09:37 Calcium Acetate 667 Mg Tablet PO 2,001 mg TIDWM KELLIE Administration Clonidine HCl 0.2 mg 05/04/21 16:02 05/11/21 13:36 Clonidine Hcl 0.2 Mg Tablet PO 0.2 mg BID PRN Administration Hypertension Dextrose 12.5 gm 05/03/21 22:06 Dextrose 50% 25 Gm/50 Ml Syringe
--- NOTE | 2021-05-12 14:35 | PC.NURSE ---
On 05/12/21, the student, Veronica Spivey, provided care and completed [facility] documentation on this patient. I have reviewed the student's documentation and agree with the findings.
[2021-05-12 16:49] LABS: Glucose Point of Care 99 mg/dl (65-105)
--- NOTE | 2021-05-12 20:57 | PM.IMPN ---
Progress Note: A&P Assessment and Plan (1) Peritonitis, dialysis-associated: Qualifiers: Encounter type: subsequent encounter Qualified Code(s): T85.71XD - Infection and inflammatory reaction due to peritoneal dialysis catheter, subsequent encounter Code(s): T85.71XA - Infection and inflammatory reaction due to peritoneal dialysis catheter, initial encounter Status: Acute Assessment and Plan: Patient presented with abdominal pain and cloudy peritoneal fluid 4 days following contamination of his PD catheter Peritoneal fluid culture with growth of Klebsiella oxytoca sensitive to cefepime Blood cultures pending, negative to date Continue IV cefepime. Dosing of ceftazidime through the PD catheter per Nephrology. Leukocytosis improved down to 12 ---> 11.2 today and patient remains afebrile with patient feeling better Need antibiotic duration - may benefit from ID vs Nephrology recommendaton on this Appreciate Nephrology recomnendations Advance diet as tolerated Discussed the importance of moving with the patient (2) End-stage renal disease on peritoneal dialysis: Code(s): N18.6 - End stage renal disease; Z99.2 - Dependence on renal dialysis Status: Acute Assessment and Plan: Maintained on peritoneal dialysis nephrology rounding (3) Insulin dependent type 2 diabetes mellitus: Code(s): E11.9 - Type 2 diabetes mellitus without complications; Z79.4 - FDC (current) use of insulin Status: Acute Assessment and Plan: A1c is 5.0 accuchecks, SSI . (4) Hypertension: Qualifiers: Hypertension type: primary hypertension Qualified Code(s): I10 - Essential (primary) hypertension Code(s): I10 - Essential (primary) hypertension Status: Chronic Assessment and Plan: Blood pressure reviewed and has been reasonably controlled. Running 140s-150s/70s-80s. Continue nifedipine watch Bps Clonidine PRN BP >170/100 (5) Normocytic anemia: Code(s): D64.9 - Anemia, unspecified Status: Acute Assessment and Plan: Likely chronic secondary to ESRD continue to monitor b (6) Hyponatremia: Code(s): E87.1 - Hypo-osmolality and hyponatremia Status: Acute Assessment and Plan: continue to monitor (7) Ileus: Code(s): K56.7 - Ileus, unspecified Status: Resolved Assessment and Plan: -Does not appear to be worsening but will consult General Surgery in AM -KUB ordered for AM Additional Plan . Subjective Date/time seen: Date of Service 05/12/21 1200 Patient says he had a very large bowel movement overnight. Patient says he has constant pain when he moves, which is why he doesn't like to move, even after he had the large bowel movement in bed. Says his abdomen feels better and less tight. Says he has less abdominal pain and feels better overall. Per nursing patient refuses to get out of bed and be mobile. Review of Systems Constitutional: Constitutional: Reports fatigue and Reports weakness Exam Narrative: GENERAL: NAD, cooperative HEENT: Normocephalic, atraumatic, anicteric NECK: Supple CV: Normal S1, S2, RRR, No MRG RESP: CTAB Abdomen: Soft, less distended, nontender EXTREMITIES: Warm and well perfused, no clubbing, cyanosis. Significant bilateral LE edema SKIN: warm, dry and intact. NEURO:CN 2-12 grossly intact. Objective Data Vital Signs Vital Signs: Vital Signs - 24 hr 05/11/21 21:35 05/12/21 05:36 05/12/21 07:10 Temperature 96.9 F L 96.9 F L 96.9 F L Pulse Rate 80 80 80 Respiratory Rate 16 16 16 Blood Pressure 131/88 165/105 H 165/105 H Pulse Oximetry 100 100 05/12/21 08:00 05/12/21 09:41 05/12/21 11:43 Temperature 97.4 F L 97.4 F L Pulse Rate 83 83 76 Respiratory Rate 15 16 Blood Pressure 160/97 H 158/94 H Pulse Oximetry 100 100 05/12/21 14:00 05/12/21 17:41 05/12/21 17:43 Temperature 9
[2021-05-12 22:39] LABS: Glucose Point of Care 214 mg/dl (65-105)
[2021-05-13 04:40] VITALS: BP 128/76; PULSE 77; RESP 16; TEMP 36.4; O2SAT 100
[2021-05-13 06:35] LABS: Hematocrit 27.8 % (42.0-52.0); Hemoglobin 8.7 g/dL (14.0-18.0); Mean Corpuscular HGB Conc 31.3 g/dl (32-36); Mean Corpuscular Hemoglobin 31.2 pg (26-34); Mean Corpuscular Volume 99.6 fl (80-100); Mean Platelet Volume 9.1 fl (7.4-10.4); Platelet Count Result 387 k/mm3 (150-375); Red Blood Count 2.79 M/mm3 (4.6-6.20); Red Cell Distribution Width 14.8 % (11.5-14.5); White Blood Count 10.4 K/mm3 (4.5-10.0)
[2021-05-13 07:30] LABS: Anisocytosis 1+ (NORMAL); Atypical Lymphocytes Present; Band Neutrophils Percent 3 % (0-6); Eosinophils Percent Manual 2 % (0-4); Hypochromasia 1+ (NORMAL); Lymphocytes Absolute Manual 1.97 K/mm3 (1.1-4.5); Metamyelocytes Percent 2 %; Monocytes Absolute Manual 0.62 K/mm3 (0.1-0.90); Monocytes Percent Manual 6 % (3-9); Myelocytes Percent 1 %; Neutrophils Absolute Manual 7.28 K/mm3 (1.3-6.7); Neutrophils Percent Manual 67 % (46-73); Total Cells Counted 100
[2021-05-13 08:11] LABS: Glucose Point of Care 222 mg/dl (65-105)
[2021-05-13 08:45] VITALS: BP 130/80; PULSE 71; RESP 18; TEMP 36.1
[2021-05-13] MEDS: CALCIUM ACETATE 667 MG TABLET 2001 MG PO ×2 (09:07→17:06)
[2021-05-13] MEDS: POTASSIUM CHLORIDE 20 MEQ TABLET PO (09:08)
[2021-05-13] MEDS: HEPARIN SODIUM 5,000 UNITS/ML VIAL 5000 UNITS SUB-Q ×2 (09:08→20:47)
[2021-05-13] MEDS: NIFEdipine 30 MG TAB.ER.24 90 MG PO (09:08)
[2021-05-13] MEDS: FLUoxetine HCL 20 MG CAPSULE PO (09:08)
[2021-05-13] MEDS: polyethylene glycoL 3350 17 GM POWD.PACK PO (09:08)
[2021-05-13] MEDS: METOPROLOL SUCCINATE EXT REL 25 MG TABCR PO (09:08)
[2021-05-13] MEDS: FUROSEMIDE 80 MG TABLET PO ×2 (09:08→17:06)
[2021-05-13] MEDS: VITAMIN B CMPLX/VIT C/FOLIC AC 1 CAPSULE 1 CAP PO (09:08)
[2021-05-13] MEDS: ASPIRIN 81 MG CHEWABLE TABLET PO (09:08)
[2021-05-13] MEDS: LACTULOSE 20 GM/30 ML UDC PO (09:09)
[2021-05-13] MEDS: INSULIN ASPART (*BKC) 100 UNITS/ML SUB-Q (09:09)
[2021-05-13] MEDS: DOCUSATE SODIUM 100 MG CAPSULE PO ×2 (09:10→20:47)
--- NOTE | 2021-05-13 10:04 | PM.CNGS ---
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 We ordered a water-soluble enema today that showed no signs of a colonic obstruction or stricture. Would agree with continuing medical management. There is no surgical intervention needed at this time. If symptoms recur, would consider a GI consultation for colonoscopic decompression. Okay to advance diet as tolerated if he continues to improve. Will plan to see patient only as needed. Thank you for allowing us to see the patient in consultation. (2) Peritonitis: Code(s): K65.9 - Peritonitis, unspecified Status: Acute Assessment and Plan: Continue management and antibiotics per Nephrology and primary service. (3) Diabetes: Code(s): E11.9 - Type 2 diabetes mellitus without complications Status: Chronic (4) End-stage renal disease on peritoneal dialysis: Code(s): N18.6 - End stage renal disease; Z99.2 - Dependence on renal dialysis Status: Acute (5) Hypertension: Qualifiers: Hypertension type: primary hypertension Qualified Code(s): I10 - Essential (primary) hypertension Code(s): I10 - Essential (primary) hypertension Status: Chronic Additional Plan I have discussed the patient's case and plan of care with Dr. Justin. History of Present Illness Consult details Consult date: 05/13/21 Reason for consult: other (Possible colonic obstruction versus ileus) Requesting physician: Milagros Barillas MD Narrative: This is a 52-year-old male who has a history of end-stage renal disease on peritoneal dialysis, type 2 diabetes, and hypertension, who presented to the emergency department on 05/03/2021 from home for evaluation of abdominal pain. About 4 days prior, he reports that the connector broke loose on his peritoneal dialysis catheter and fluid began to spray. He rapidly reattached to use and was concerned that the catheter was contaminated. He was out of his prophylactic antibiotics at home, which she would typically take if this happened. He developed abdominal pain and noted his peritoneal fluid was cloudy, which prompted him to call his dialysis nurse who instructed him to go to the ER. He has since been admitted for treatment of peritonitis. Nephrology has been following and he has continued with his peritoneal dialysis. He is now receiving intermittent intraperitoneal ceftazidime with IV cefepime. Peritoneal fluid cultures have grown Klebsiella oxytoca. He continued to complain of abdominal distention and pain, along with nausea and constipation. Since Klebsiella is not a typical organism seen with contamination, he had a CT scan of the abdomen and pelvis on 05/07/2021 to rule out other intra-abdominal causes of the peritonitis. The CT showed colonic distention to the level of the splenic flexure without definitive obstructing mass or stricture identified, possible ileus. Also noted was a right inguinal hernia containing fat and a large volume of ascites extending into the right scrotum, and findings related to peritoneal dialysis. He has been treated with laxatives, stool softeners, and bowel rest. He has been advanced from clear liquids to now full liquids. He has been monitored with plain films of the abdomen over the last few days, which continued to show persistent colonic distention. Our service has now been consulted for a possible colonic obstruction versus ileus. The patient has been moving his bowels, with 4 bowel movements yesterday and 1 small one overnight. The patient reports that his bowel movements the last 2 days have been in large amounts. He states that his nausea has resolved and his bloating is improving. He also reports his abdominal pain has improved, which now he describes as more of just mild discomfort. He admi
[2021-05-13 10:16] LABS: Appearance Peritoneal Fluid Clear (Clear); Color Peritoneal Fluid Colorless (Colorless); Nucleated Cells Peritoneal Flu 636 /uL (0-500); RBC Peritoneal Fluid 0 /uL (0-100000); Source Peritoneal Fluid Peritoneal Fluid
[2021-05-13 10:21] LABS: Eosinophils Peritoneal Fluid 5 %; Lymphocytes Peritoneal Fluid 8 %; Monocytes Peritoneal Fluid 18 %; Neutrophils Peritoneal Fluid 69 % (0-25)
--- NOTE | 2021-05-13 10:25 | PM.IMPN ---
Progress Note: A&P Assessment and Plan (1) Peritonitis, dialysis-associated: Qualifiers: Encounter type: subsequent encounter Qualified Code(s): T85.71XD - Infection and inflammatory reaction due to peritoneal dialysis catheter, subsequent encounter Code(s): T85.71XA - Infection and inflammatory reaction due to peritoneal dialysis catheter, initial encounter Status: Acute Assessment and Plan: Patient presented with abdominal pain and cloudy peritoneal fluid 4 days following contamination of his PD catheter Peritoneal fluid culture with growth of Klebsiella oxytoca sensitive to cefepime Blood cultures pending, negative to date Continue IV cefepime. Dosing of ceftazidime through the PD catheter per Nephrology. Leukocytosis improved down to 10.4 today Appreciate Nephrology recomnendations Advance diet as tolerated (2) End-stage renal disease on peritoneal dialysis: Code(s): N18.6 - End stage renal disease; Z99.2 - Dependence on renal dialysis Status: Acute Assessment and Plan: Maintained on peritoneal dialysis Appreciate recommendations from Nephrology (3) Insulin dependent type 2 diabetes mellitus: Code(s): E11.9 - Type 2 diabetes mellitus without complications; Z79.4 - FPC (current) use of insulin Status: Acute Assessment and Plan: A1c is 5.0 accuchecks, SSI . (4) Hypertension: Qualifiers: Hypertension type: primary hypertension Qualified Code(s): I10 - Essential (primary) hypertension Code(s): I10 - Essential (primary) hypertension Status: Chronic Assessment and Plan: Blood pressure reviewed and has been reasonably controlled. Running 140s-150s/70s-80s. Continue nifedipine watch Bps Clonidine PRN BP >170/100 (5) Normocytic anemia: Code(s): D64.9 - Anemia, unspecified Status: Acute Assessment and Plan: Likely chronic secondary to ESRD continue to monitor b (6) Hyponatremia: Code(s): E87.1 - Hypo-osmolality and hyponatremia Status: Acute Assessment and Plan: continue to monitor (7) Ileus: Code(s): K56.7 - Ileus, unspecified Status: Resolved Assessment and Plan: Abdomen is softer and less distended and patient feels better. KUB improved compared to previous xr. -Appreciate recommendations from General Surgery Additional Plan . Subjective Date/time seen: Date of Service 05/13/21 1020 Patient says he had another liquid bowel movement overnight. Says overall he feels beter but when he gets up to walk he has increased pain in his abdomen. Says he walked to the restroom and to he door of his room yesterday. Review of Systems Gastrointestinal: Gastrointestinal: Reports abdominal pain, Denies constipation and Denies hematemesis Exam Narrative: GENERAL: NAD, cooperative HEENT: Normocephalic, atraumatic, anicteric NECK: Supple CV: Normal S1, S2, RRR, No MRG RESP: CTAB Abdomen: Soft, less distended, nontender EXTREMITIES: Warm and well perfused, no clubbing, cyanosis. Significant bilateral LE edema SKIN: warm, dry and intact. NEURO:CN 2-12 grossly intact. Objective Data Vital Signs Vital Signs: Vital Signs - 24 hr 05/12/21 17:41 05/12/21 17:43 05/12/21 19:49 Temperature 96.3 F L 96.3 F L 97 F L Pulse Rate 73 83 Respiratory Rate 21 H 21 H 16 Blood Pressure 149/90 H 145/76 H Pulse Oximetry 100 05/13/21 04:40 05/13/21 08:45 05/13/21 14:00 Temperature 97.6 F 97.0 F L 97.1 F L Pulse Rate 77 71 76 Respiratory Rate 16 18 16 Blood Pressure 128/76 130/80 138/77 Pulse Oximetry 100 100 Intake/Output Intake/Output: Intake & Output 05/10/21 05/11/21 05/12/21 05/13/21 23:59 23:59 23:59 23:59 Intake Total 880 301 0433 404 Output Total 3507 100 489 772 Balance -1612 405 976 1799 Meds/Results Medications: Active Medications Generic Name Dose Route Start La
[2021-05-13] MEDS: HYDROcodone/acetaminophen (*CRX) 5-325 MG TABLET 1 TAB PO ×2 (11:17→17:05)
[2021-05-13 12:04] LABS: Glucose Point of Care 138 mg/dl (65-105)
--- NOTE | 2021-05-13 12:49 | P.PNNP_ITS ---
Progress Note: A&P Assessment and Plan (1) End stage renal disease: Code(s): N18.6 - End stage renal disease Status: Chronic Assessment and Plan: * continue CCPD * follow electrolytes, volume status, and clearance * last CT scan of abd/pelvis noted (ileus) * on bowel regimen * supportive therapy * given recurrent episodes of peritonitis and poor ultrafiltration with PD, I suspect peritoneal membrane failure * discussed case with primary associate theatre professor and his outpatient PD nurse * recommend back-up hemodialysis to allow peritoneal membrane to heal * HD for now and then reassess PD in a few weeks to determine if he can resume peritoneal dialysis * will consult Surgery to place tunneled HD catheter * will need outpatient HD arranged ([facility] under care of Dr. Bianchi) (2) Peritonitis: Code(s): K65.9 - Peritonitis, unspecified Status: Acute Assessment and Plan: * associated with potential contamination doing peritoneal dialysis * however, Klebsiella is not a typical organism associated with contamination * results of CT of abd/pelvis noted * PD fluid culture with Klebsiella * continue antibiotics as is (will likely transition to IV ceftazidime post HD to complete 2 week course) * last PD fluid cell count showing significant improvement in inflammation (3) Hypertension: Qualifiers: Hypertension type: primary hypertension Qualified Code(s): I10 - Essential (primary) hypertension Code(s): I10 - Essential (primary) hypertension Status: Chronic Assessment and Plan: * reasonable control at this time * continue home medications * follow trend of hemodynamics (4) Anemia: Code(s): D64.9 - Anemia, unspecified Status: Chronic Assessment and Plan: * due to ESRD and acute illness * Epogen while hospitalized * follow trend of H/H (5) Diabetes: Code(s): E11.9 - Type 2 diabetes mellitus without complications Status: Chronic Assessment and Plan: * follow accuchecks * glycemic control Long and extensive discussion (> 20 minutes) with patient regarding plan to transition to back-up hemodialysis; plan was also discussed with outpatient PD nurse Reena as well as Dr. Bianchi) Will continue to follow. Subjective Date/time seen: 05/13/21 12:49 Tolerated PD treatment overnight but once again absorbed fluid overnight (no significant ultrafiltration); no apparent distress noted and no significant pain with peritoneal dialysis treatment; has not been ambulating much since admission; no apparent distress at this time; issues/events overnight or earlier this AM. Exam Narrative: General: WD/WN AA male in NAD Heart: normal S1 and S2; no rub Lungs: clear to auscultation Abdomen: soft, mild distension, positive bowel sounds Extremities: no cyanosis or clubbing; trace edema Skin: no rash or nodules Objective Data Vital Signs Vital Signs: Vital Signs Temp Pulse Resp BP Pulse Ox 05/13/21 08:45 36.1 C L 71 18 130/80 05/13/21 04:40 36.4 C 77 16 128/76 100 05/12/21 19:49 36.1 C L 83 16 145/76 H 100 05/12/21 17:43 35.7 C L 21 H 05/12/21 17:41 35.7 C L 73 21 H 149/90 H Intake/Output Intake/Output: Intake & Output 05/10/21 05/11/21 05/12/21 05/13/21 23:59 23:59 23:59 23:59
--- NOTE | 2021-05-13 12:49 | PM.PNNEP ---
Progress Note: A&P Assessment and Plan (1) End stage renal disease: Code(s): N18.6 - End stage renal disease Status: Chronic Assessment and Plan: continue CCPD follow electrolytes, volume status, and clearance last CT scan of abd/pelvis noted (ileus) on bowel regimen supportive therapy given recurrent episodes of peritonitis and poor ultrafiltration with PD, I suspect peritoneal membrane failure discussed case with primary pl sql programmer and his outpatient PD nurse recommend back-up hemodialysis to allow peritoneal membrane to heal HD for now and then reassess PD in a few weeks to determine if he can resume peritoneal dialysis will consult Surgery to place tunneled HD catheter will need outpatient HD arranged ([facility] under care of Dr. Bianchi) (2) Peritonitis: Code(s): K65.9 - Peritonitis, unspecified Status: Acute Assessment and Plan: associated with potential contamination doing peritoneal dialysis however, Klebsiella is not a typical organism associated with contamination results of CT of abd/pelvis noted PD fluid culture with Klebsiella continue antibiotics as is (will likely transition to IV ceftazidime post HD to complete 2 week course) last PD fluid cell count showing significant improvement in inflammation (3) Hypertension: Qualifiers: Hypertension type: primary hypertension Qualified Code(s): I10 - Essential (primary) hypertension Code(s): I10 - Essential (primary) hypertension Status: Chronic Assessment and Plan: reasonable control at this time continue home medications follow trend of hemodynamics (4) Anemia: Code(s): D64.9 - Anemia, unspecified Status: Chronic Assessment and Plan: due to ESRD and acute illness Epogen while hospitalized follow trend of H/H (5) Diabetes: Code(s): E11.9 - Type 2 diabetes mellitus without complications Status: Chronic Assessment and Plan: follow accuchecks glycemic control Long and extensive discussion (> 20 minutes) with patient regarding plan to transition to back-up hemodialysis; plan was also discussed with outpatient PD nurse Reena as well as Dr. Bianchi) Will continue to follow. Subjective Date/time seen: 05/13/21 12:49 Tolerated PD treatment overnight but once again absorbed fluid overnight (no significant ultrafiltration); no apparent distress noted and no significant pain with peritoneal dialysis treatment; has not been ambulating much since admission; no apparent distress at this time; issues/events overnight or earlier this AM. Exam Narrative: General: WD/WN AA male in NAD Heart: normal S1 and S2; no rub Lungs: clear to auscultation Abdomen: soft, mild distension, positive bowel sounds Extremities: no cyanosis or clubbing; trace edema Skin: no rash or nodules Objective Data Vital Signs Vital Signs: Vital Signs Temp Pulse Resp BP Pulse Ox 05/13/21 08:45 36.1 C L 71 18 130/80 05/13/21 04:40 36.4 C 77 16 128/76 100 05/12/21 19:49 36.1 C L 83 16 145/76 H 100 05/12/21 17:43 35.7 C L 21 H 05/12/21 17:41 35.7 C L 73 21 H 149/90 H Intake/Output Intake/Output: Intake & Output 05/10/21 05/11/21 05/12/21 05/13/21 23:59 23:59 23:59 23:59 Intake Total 086 181 2640 404 Output Total 3507 100 489 -772 Balance -2742 753 057 9554 Meds/Results Medications: Active Medications Generic Name Dose Route Start Last Admin Trade Name Freq PRN Reason Stop Dose Admin Acetaminophen 650 mg 05/07/21 15:57 05/11/21 13:04 Acetaminophen 325 Mg Tablet PO 650 mg Q4H PRN Administration Pain Hydrocodone Bitart/Acetaminophen 1 tab 05/07/21 15:57 05/13/21 11:17 Hydrocodone/Acetaminophen (*Crx) 5-325 Mg Tablet PO 1 tab Q4H PRN Administration Breakthrough pain Albuterol 2 puff 05/03/21 22:09 Albuterol Sulfate (*Sp) Aerosol 1 Puff INHALATIO
[2021-05-13 14:00] VITALS: BP 138/77; PULSE 76; RESP 16; TEMP 36.2; O2SAT 100
[2021-05-13 16:59] LABS: Glucose Point of Care 167 mg/dl (65-105)
[2021-05-13 18:13] VITALS: TEMP 36.7
[2021-05-13 18:16] VITALS: BP 140/75; PULSE 77; RESP 18; TEMP 36.7
[2021-05-13 20:28] LABS: Glucose Point of Care 236 mg/dl (65-105)
[2021-05-13] MEDS: SIMETHICONE 80 MG TAB.CHEW PO (20:47)
--- NOTE | 2021-05-13 21:45 | PC.NURSE ---
After much encouragement, pt ambulated 1 lap around the nurses station, tolerated well, no dizzy/lightheaded/ or SOB.
[2021-05-13 22:00] VITALS: BP 143/78; PULSE 86; RESP 18; TEMP 36.8; O2SAT 100
[2021-05-14] VITALS (9 sets, daily range): BP systolic 116–160; BP diastolic 68–93; PULSE 76–82; RESP 10–18; TEMP 36–36.7; O2SAT 100
[2021-05-14 06:09] LABS: Basophils Absolute Auto 0.1 K/mm3 (0.0-0.1); Basophils Percent Auto 0.8 % (0.2-1.2); Eosinophils Absolute Auto 0.2 K/mm3 (0-0.3); Eosinophils Percent Auto 1.8 % (0-4.4); Hematocrit 25.7 % (42.0-52.0); Hemoglobin 8.3 g/dL (14.0-18.0); Immature Granulocyte Absolute 0.67 K/mm3 (0.00-0.031); Immature Granulocyte Percent A 6.2 % (0-0.5); Lymphocytes Absolute Auto 2.76 K/mm3 (0.9-3.2); Lymphocytes Percent Auto 25.5 % (18.3-44.2); Mean Corpuscular HGB Conc 32.3 g/dl (32-36); Mean Corpuscular Hemoglobin 31.4 pg (26-34); Mean Corpuscular Volume 97.3 fl (80-100); Mean Platelet Volume 8.8 fl (7.4-10.4); Monocytes Absolute Auto 0.8 K/mm3 (0.1-0.6); Neutrophils Absolute Auto 6.4 K/mm3 (1.3-6.7); Neutrophils Percent Auto 58.7 % (45.5-73.1); Nucleated Red Blood Cells Absolute Auto 0.1 K/mm3 (0.0-0.012); Nucleated Red Blood Cells Perc 0.5 % (0.0-0.2); Platelet Count Result 391 k/mm3 (150-375); Red Blood Count 2.64 M/mm3 (4.6-6.20); White Blood Count 10.8 K/mm3 (4.5-10.0)
[2021-05-14 06:22] LABS: Potassium 3.8 mmol/L (3.4-5.0)
[2021-05-14 06:23] LABS: Anion Gap 7 mmol/L (8-16); Blood Urea Nitrogen 57 mg/dL (9-20); Calcium 10.7 mg/dL (8.4-10.2); Carbon Dioxide 30 mmol/L (22-30); Chloride 95 mmol/L (98-107); Estimated CRCL calculation 10 ml/min; Estimated Glomerular Filt Rate 5; Glucose 273 mg/dL (65-110); Sodium 132 mmol/L (137-145)
[2021-05-14 08:22] LABS: Glucose Point of Care 223 mg/dl (65-105)
[2021-05-14] MEDS: EPOETIN ALFA-EPBX 10,000 UNITS/ML VIAL 10000 UNITS SUB-Q (09:17)
[2021-05-14] MEDS: INSULIN ASPART (*BKC) 100 UNITS/ML SUB-Q (09:19)
[2021-05-14] MEDS: NIFEdipine 30 MG TAB.ER.24 90 MG PO (09:21)
[2021-05-14] MEDS: DOCUSATE SODIUM 100 MG CAPSULE PO ×2 (09:22→20:46)
[2021-05-14] MEDS: CALCIUM ACETATE 667 MG TABLET 2001 MG PO ×2 (09:22→16:53)
[2021-05-14] MEDS: METOPROLOL SUCCINATE EXT REL 25 MG TABCR PO (09:22)
[2021-05-14] MEDS: FLUoxetine HCL 20 MG CAPSULE PO (09:22)
[2021-05-14] MEDS: POTASSIUM CHLORIDE 20 MEQ TABLET PO (09:22)
[2021-05-14] MEDS: ASPIRIN 81 MG CHEWABLE TABLET PO (09:22)
[2021-05-14] MEDS: LACTULOSE 20 GM/30 ML UDC PO (09:23)
[2021-05-14] MEDS: VITAMIN B CMPLX/VIT C/FOLIC AC 1 CAPSULE 1 CAP PO (09:23)
[2021-05-14] MEDS: FUROSEMIDE 80 MG TABLET PO ×2 (09:23→16:54)
[2021-05-14] MEDS: SIMETHICONE 80 MG TAB.CHEW PO ×2 (10:00→20:46)
--- NOTE | 2021-05-14 10:58 | PCPTNOTE ---
Patient declined PT stating he will be going to surgery soon and he did not feel well due to stomach discomfort. PT will continue to follow per plan of care.
[2021-05-14 11:35] LABS: Glucose Point of Care 188 mg/dl (65-105)
--- NOTE | 2021-05-14 12:02 | P.PNNP_ITS ---
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 Bianchi) (2) Peritonitis: Code(s): K65.9 - Peritonitis, unspecified Status: Acute Assessment and Plan: * associated with potential contamination doing peritoneal dialysis * however, Klebsiella is not a typical organism associated with contamination * results of CT of abd/pelvis noted * PD fluid culture with Klebsiella * continue antibiotics as is (will likely transition to IV ceftazidime post HD to complete 2 week course) * last PD fluid cell count showing significant improvement in inflammation (3) Hypertension: Qualifiers: Hypertension type: primary hypertension Qualified Code(s): I10 - Essential (primary) hypertension Code(s): I10 - Essential (primary) hypertension Status: Chronic Assessment and Plan: * reasonable control at this time * continue home medications * follow trend of hemodynamics (4) Anemia: Code(s): D64.9 - Anemia, unspecified Status: Chronic Assessment and Plan: * due to ESRD and acute illness * Epogen while hospitalized * follow trend of H/H (5) Diabetes: Code(s): E11.9 - Type 2 diabetes mellitus without complications Status: Chronic Assessment and Plan: * follow accuchecks * glycemic control Will continue to follow. Subjective Date/time seen: 05/14/21 12:02 Tolerating CCPD treatments at nights but still retaining/absorbing fluid with treatments; on schedule for tunneled HD catheter today of transition to back- up hemodialysis; no acute distress noted. Exam Narrative: General: WD/WN AA male in NAD Heart: normal S1 and S2; no rub Lungs: clear to auscultation Abdomen: soft, mild distension, positive bowel sounds Extremities: no cyanosis or clubbing; trace edema Skin: warm and dry Objective Data Vital Signs Vital Signs: Vital Signs Temp Pulse Resp BP Pulse Ox 05/14/21 11:30 36.2 C L 80 16 142/80 H 05/14/21 09:22 76 05/14/21 06:00 36.4 C L 81 18 129/71 100 05/13/21 22:00 36.8 C 86 18 143/78 H 100 05/13/21 18:16 36.7 C 77 18 140/75 05/13/21 18:13 36.7 C 05/13/21 14:00 36.2 C L 76 16 138/77 100 Intake/Output Intake/Output: Intake & Output 05/11/21 05/12/21 05/13/21 05/14/21 23:59 23:59 23:59 23:59 Intake Total 680 1180 640 100 Output Total 100 580 -811 -520 Balance 549 745 [id number] 759 Meds/Results Medications: Active Medications Generic Name Dose Route Star
--- NOTE | 2021-05-14 12:02 | PM.PNNEP ---
Progress Note: A&P Assessment and Plan (1) End stage renal disease: Code(s): N18.6 - End stage renal disease Status: Chronic Assessment and Plan: continue CCPD follow electrolytes, volume status, and clearance last CT scan of abd/pelvis noted (ileus) on bowel regimen supportive therapy given recurrent episodes of peritonitis and poor ultrafiltration with PD, I suspect peritoneal membrane failure discussed case with primary tankerman and his outpatient PD nurse recommend back-up hemodialysis to allow peritoneal membrane to heal HD for now and then reassess PD in a few weeks to determine if he can resume peritoneal dialysis consulted Surgery to place tunneled HD catheter will need outpatient HD arranged ([facility] under care of Dr. Bianchi) (2) Peritonitis: Code(s): K65.9 - Peritonitis, unspecified Status: Acute Assessment and Plan: associated with potential contamination doing peritoneal dialysis however, Klebsiella is not a typical organism associated with contamination results of CT of abd/pelvis noted PD fluid culture with Klebsiella continue antibiotics as is (will likely transition to IV ceftazidime post HD to complete 2 week course) last PD fluid cell count showing significant improvement in inflammation (3) Hypertension: Qualifiers: Hypertension type: primary hypertension Qualified Code(s): I10 - Essential (primary) hypertension Code(s): I10 - Essential (primary) hypertension Status: Chronic Assessment and Plan: reasonable control at this time continue home medications follow trend of hemodynamics (4) Anemia: Code(s): D64.9 - Anemia, unspecified Status: Chronic Assessment and Plan: due to ESRD and acute illness Epogen while hospitalized follow trend of H/H (5) Diabetes: Code(s): E11.9 - Type 2 diabetes mellitus without complications Status: Chronic Assessment and Plan: follow accuchecks glycemic control Will continue to follow. Subjective Date/time seen: 05/14/21 12:02 Tolerating CCPD treatments at nights but still retaining/absorbing fluid with treatments; on schedule for tunneled HD catheter today of transition to back-up hemodialysis; no acute distress noted. Exam Narrative: General: WD/WN AA male in NAD Heart: normal S1 and S2; no rub Lungs: clear to auscultation Abdomen: soft, mild distension, positive bowel sounds Extremities: no cyanosis or clubbing; trace edema Skin: warm and dry Objective Data Vital Signs Vital Signs: Vital Signs Temp Pulse Resp BP Pulse Ox 05/14/21 11:30 36.2 C L 80 16 142/80 H 05/14/21 09:22 76 05/14/21 06:00 36.4 C L 81 18 129/71 100 05/13/21 22:00 36.8 C 86 18 143/78 H 100 05/13/21 18:16 36.7 C 77 18 140/75 05/13/21 18:13 36.7 C 05/13/21 14:00 36.2 C L 76 16 138/77 100 Intake/Output Intake/Output: Intake & Output 05/11/21 05/12/21 05/13/21 05/14/21 23:59 23:59 23:59 23:59 Intake Total 680 1180 640 100 Output Total 100 429 -319 -560 Balance 161 501 7139 759 Meds/Results Medications: Active Medications Generic Name Dose Route Start Last Admin Trade Name Freq PRN Reason Stop Dose Admin Acetaminophen 650 mg 05/07/21 15:57 05/11/21 13:04 Acetaminophen 325 Mg Tablet PO 650 mg Q4H PRN Administration Pain Hydrocodone Bitart/Acetaminophen 1 tab 05/07/21 15:57 05/13/21 17:05 Hydrocodone/Acetaminophen (*Crx) 5-325 Mg Tablet PO 1 tab Q4H PRN Administration Breakthrough pain Albuterol 2 puff 05/03/21 22:09 Albuterol Sulfate (*Sp) Aerosol 1 Puff INHALATION Q12HRT PRN Adequate Ventilation Aspirin 81 mg 05/04/21 09:00 05/14/21 09:22 Aspirin 81 Mg Chewable Tablet PO 81 mg DAILY KELLIE Administration Calcium Acetate 2,001 mg 05/04/21 08:00 05/14/21 11:41 Calcium Acetate 667 Mg Tablet PO
--- NOTE | 2021-05-14 12:15 | WPDANESEPPF ---
Anes - Initial Pre Proc Eval Procedure: Operation Date: 05/14/21 15:30 Proposed Procedures p Placement Tunneled Duraflow Catheter - Dawood Justin MD Date/Time: 05/14/21 12:15 Surgeon: ASIM Hutson Pre Op Diagnosis: Peritonitis (dialysis related) Patient Data Age: 60 Gender: M Height: 2.01 m Weight: 64.818 kg Last Vital Signs Temp 36.2 C L 05/14/21 11:30 Pulse 80 05/14/21 11:30 Resp 16 05/14/21 11:30 BP 142/80 H 05/14/21 11:30 Pulse Ox 100 05/14/21 06:00 Allergies Allergy/AdvReac Type Severity Reaction Status Date / Time No Known Allergies Allergy Mild Unverified 06/14/08 16:10 Home Medications Medication Instructions Recorded Confirmed Type B complex-vitamin C-folic acid 1 tablet PO DAILY 05/03/21 05/03/21 History [Christiana-Mirta] albuterol sulfate 2 puff INHALATION BID PRN 05/03/21 05/03/21 History aspirin 1 tablet PO DAILY 05/03/21 05/03/21 History calcium acetate(phosphat bind) 2,001 mg PO TIDWMEAL 05/03/21 05/03/21 History clonidine HCl 0.2 mg PO BID PRN 05/03/21 05/03/21 History fluoxetine 20 mg PO DAILY 05/03/21 05/03/21 History furosemide 80 mg PO BID 05/03/21 05/03/21 History insulin lispro protamin-lispro 10 unit SUBCUT BID 05/03/21 05/03/21 History [Humalog Mix 75-25(U-100)Insuln] nifedipine 90 mg PO DAILY 05/03/21 05/03/21 History potassium chloride 20 meq PO DAILY 05/03/21 05/03/21 History Laboratory Tests 05/13/21 05/13/21 05/14/21 16:53 20:20 05:49 WBC 10.8 K/mm3 H K/mm3 (4.5-10.0) RBC 2.64 M/mm3 L M/mm3 (4.6-6.20) Hgb 8.3 g/dL L g/dL (14.0-18.0) Hct 25.7 % L % (42.0-52.0) MCV 97.3 fl fl (80-100) MCH 31.4 pg pg (26-34) MCHC 32.3 g/dl g/dl (32-36) RDW 15.0 % H % (11.5-14.5) Plt Count 391 k/mm3 H k/mm3 (150-375) MPV 8.8 fl fl (7.4-10.4) Immature Gran % (Auto) 6.2 % H % (0-0.5) Neut % (Auto) 58.7 % % (45.5-73.1) Lymph % (Auto) 25.5 % % (18.3-44.2) Runnels % (Auto) 7.0 % % (2.6-8.5) Eos % (Auto) 1.8 % % (0-4.4) Baso % (Auto) 0.8 % % (0.2-1.2) Lymph # (Auto) 2.76 K/mm3 K/mm3 (0.9-3.2) Runnels # (Auto) 0.8 K/mm3 H K/mm3 (0.1-0.6) Eos # (Auto) 0.2 K/mm3 K/mm3 (0-0.3) Baso # (Auto) 0.1 K/mm3 K/mm3 (0.0-0.1) Abs Immat Gran (auto) 0.67 K/mm3 H K/mm3 (0.00-0.031) Absolute Neuts (auto) 6.4 K/mm3 K/mm3 (1.3-6.7) Absolute Nucleated RBC 0.1 K/mm3 H K/mm3 (0.0-0.012) Nucleated RBC % 0.5 % H % (0.0-0.2) Sodium Potassium Chloride Carbon Dioxide Anion Gap BUN Creatinine Estim Creat Clear Calc Estimated GFR Glucose POC Capillary Glucose 167 mg/dl H mg/dl 236 mg/dl H mg/dl (65-105) (65-105) Calcium 05/14/21 05/14/21 05/14/21 05:49 08:18 11:32 WBC RBC Hgb Hct MCV MCH MCHC RDW Plt Count MPV Immature Gran % (Auto) Neut % (Auto) Lymph % (Auto) Runnels % (Auto) Eos % (Auto) Baso % (Auto) Lymph # (Auto) Runnels # (Auto) Eos # (Auto) Baso # (Auto) Abs Immat Gran (auto) Absolute Neuts (auto) Absolute Nucleated RBC Nucleated RBC % Sodium 132 mmol/L L mmol/L (137-145) Potassium 3.8 mmol/L mmol/L (3.4-5.0) Chloride 95 mmol/L L mmol/L (98-107) Carbon Dioxide 30 mmol/L mmol/L (22-30) Anion Gap 7 mmol/L L mmol/L (8-16) BUN 57 mg/dL H mg/dL (9-20) Creatinine 12.20 mg/dL H mg/dL (0.7-1.3)
--- NOTE | 2021-05-14 12:37 | PM.IMPN ---
Progress Note: A&P Assessment and Plan (1) Peritonitis, dialysis-associated: Qualifiers: Encounter type: subsequent encounter Qualified Code(s): T85.71XD - Infection and inflammatory reaction due to peritoneal dialysis catheter, subsequent encounter Code(s): T85.71XA - Infection and inflammatory reaction due to peritoneal dialysis catheter, initial encounter Status: Acute Assessment and Plan: Patient presented with abdominal pain and cloudy peritoneal fluid 4 days following contamination of his PD catheter Peritoneal fluid culture with growth of Klebsiella oxytoca sensitive to cefepime Blood cultures pending, negative to date Continue IV cefepime. Dosing of ceftazidime through the PD catheter per Nephrology. Leukocytosis 10.8 today Appreciate Nephrology recommendations NPO for HD catheter today (2) End-stage renal disease on peritoneal dialysis: Code(s): N18.6 - End stage renal disease; Z99.2 - Dependence on renal dialysis Status: Acute Assessment and Plan: Planned for temporary HD while resolving peritonitis. Will have HD catheter by General Surgery this afternoon. -Will need outpatient HD Appreciate recommendations from Nephrology (3) Insulin dependent type 2 diabetes mellitus: Code(s): E11.9 - Type 2 diabetes mellitus without complications; Z79.4 - rn long term care (current) use of insulin Status: Acute Assessment and Plan: A1c is 5.0 accuchecks, SSI . (4) Hypertension: Qualifiers: Hypertension type: primary hypertension Qualified Code(s): I10 - Essential (primary) hypertension Code(s): I10 - Essential (primary) hypertension Status: Chronic Assessment and Plan: Blood pressure reviewed and has been reasonably controlled. Continue nifedipine watch Bps Clonidine PRN BP >170/100 BP control has improved (5) Normocytic anemia: Code(s): D64.9 - Anemia, unspecified Status: Acute Assessment and Plan: Likely chronic secondary to ESRD continue to monitor (6) Hyponatremia: Code(s): E87.1 - Hypo-osmolality and hyponatremia Status: Acute Assessment and Plan: continue to monitor (7) Ileus: Code(s): K56.7 - Ileus, unspecified Status: Resolved Assessment and Plan: This appears to resolving with the abdominal distention due to the current lack of filtration with PD. -Appreciate recommendations from General Surgery Additional Plan . Subjective Date/time seen: Date of Service 05/14/21 0900 Patient says he had two large bowel movements overnight and says he could hear his bowels throughout the night. Has questions about whether or not he should return to PD after doing HD. Review of Systems Gastrointestinal: Gastrointestinal: Denies constipation Exam Narrative: GENERAL: NAD, cooperative HEENT: Normocephalic, atraumatic, anicteric NECK: Supple CV: Normal S1, S2, RRR, No MRG RESP: CTAB Abdomen: Nontender, appears more distended but no tense. EXTREMITIES: Warm and well perfused. Bilateral LE edema. SKIN: warm, dry and intact. NEURO:CN 2-12 grossly intact. Objective Data Vital Signs Vital Signs: Vital Signs - 24 hr 05/13/21 14:00 05/13/21 18:13 05/13/21 18:16 Temperature 97.1 F L 98.0 F 98.0 F Pulse Rate 76 77 Respiratory Rate 16 18 Blood Pressure 138/77 140/75 Pulse Oximetry 100 05/13/21 22:00 05/14/21 06:00 05/14/21 09:22 Temperature 98.3 F 97.5 F L Pulse Rate 86 81 76 Respiratory Rate 18 18 Blood Pressure 143/78 H 129/71 Pulse Oximetry 100 100 05/14/21 11:30 Temperature 97.2 F L Pulse Rate 80 Respiratory Rate 16 Blood Pressure 142/80 H Pulse Oximetry Intake/Output Intake/Output: Intake & Output 05/11/21 05/12/21 05/13/21 05/14/21 23:59 23:59 23:59 23:59 Intake Total 680 1180 640 100 Output Total 100 483 -770 -659 Balance 319 882 2581 759 Me
--- NOTE | 2021-05-14 13:07 | PCNFU ---
Nutrition Follow-Up Complete: Suboptimal po intake related to diet order as evidenced by clear liquid diet status x 5 days, now NPO status Goal: Meet nutritional needs Pt current nutrition is NPO for HD catheter placement. Nutrition recommendation: resume diet post-op. Recommend clear liquids, advance to full liquids and renal diet as tolerated, Nepro shakes BID Last recorded weight is 64.818 kg - This is not correct. Seems to be an error in bedscale. Bowel Motility: +BM 05/13 Labs Reviewed: glucose: 273 Meds Noted: Skin: WNL Additional Notes: Pt currently NPO for HD catheter placement. Tolerated full liquids prior and nepro shakes. Monitor diet order, tolerance, intake, wt, labs. Follow up in 3 days.
--- NOTE | 2021-05-14 14:15 | WPDHPUPDATE1 ---
History and Physical Update Update Date/Time: 05/14/21 14:15 History and Physical has been reviewed, including an updated exam of the patient. There are NO changes in the patient's condition. Risks, benefits, and alternatives have been discussed and questions answered. Patient agrees to proceed with procedure.
--- NOTE | 2021-05-14 14:15 | PM.PNGS ---
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 Having bowel movements. If further problems please consider gastroenterology consultation as mentioned in the initial consultation. (2) Encounter for insertion of tunneled central venous catheter (CVC) with port: Code(s): Z45.2 - Encounter for adjustment and management of vascular access device Status: Acute Assessment and Plan: Asked to see patient for placement of tunneled central venous catheter while he is unable to proceed with peritoneal dialysis. He has had a tunneled central venous catheter in the right IJ position previously. We discussed the procedure. He understands and agrees to go ahead. (3) Peritonitis, dialysis-associated: Qualifiers: Encounter type: subsequent encounter Qualified Code(s): T85.71XD - Infection and inflammatory reaction due to peritoneal dialysis catheter, subsequent encounter Code(s): T85.71XA - Infection and inflammatory reaction due to peritoneal dialysis catheter, initial encounter Status: Acute Assessment and Plan: Continuing on cefepime for Klebsiella positive ascites and peritonitis presumably due to contamination of his dialysis catheter. (4) End stage renal disease: Code(s): N18.6 - End stage renal disease Status: Chronic Subjective Subjective Date/Time Seen: 05/14/21 14:15 Patient reports: no new complaints, bowel movement, diarrhea, afebrile and other (Patient had several bowel movements after his water-soluble contrast enema yesterday.) Interval history: Having some loose stools and feels like he has to have a bowel movement more often. No real abdominal pain. We have also been requested to place a tunneled central venous catheter for dialysis. Review of Systems Review of Systems: All systems reviewed & are unremarkable except as noted in HPI and below (HPI) Constitutional: Constitutional: Denies chills and Denies fever(s) Exam Const: General: comfortable, no acute distress, alert, awake and anxious Nutritional Appearance: average body habitus Orientation/consciousness: patient oriented x3 Chest: Chest palpation & inspection: normal inspection of the chest (Has scars right chest and neck from previous tunneled CVC), no tenderness and No rash GI: Inspection: distended, no visible herniation and other (Left lower quadrant dialysis catheter as before) GI Palp: Yes Soft to palpation, No Tenderness to palpation present (GI), No Hernia present and No Palpable mass present Auscultation: Hypoactive bowel sounds present Objective Data Vital Signs Vital Signs: Vital Signs - 24 hr 05/13/21 18:13 05/13/21 18:16 05/13/21 22:00 Temperature 36.7 C 36.7 C 36.8 C Pulse Rate 77 86 Respiratory Rate 18 18 Blood Pressure 140/75 143/78 H Pulse Oximetry 100 05/14/21 06:00 05/14/21 09:22 05/14/21 11:30 Temperature 36.4 C L 36.2 C L Pulse Rate 81 76 80 Respiratory Rate 18 16 Blood Pressure 129/71 142/80 H Pulse Oximetry 100 05/14/21 13:48 Temperature 36.0 C L Pulse Rate 78 Respiratory Rate 14 Blood Pressure 141/78 H Pulse Oximetry 100 Intake/Output Intake/Output: Intake & Output 05/11/21 05/12/21 05/13/21 05/14/21 23:59 23:59 23:59 23:59 Intake Total 680 1180 640 100 Output Total 100 489 -770 -659 Balance 553 491 8533 759 Meds/Results Medications: Active Medications Generic Name Dose Route Start Last Admin Trade Name Freq PRN Reason Stop Dose Admin Acetaminophen 650 mg 05/07/21 15:57 05/11/21 13:04 Acetaminophen 325 Mg Tablet PO 650 mg Q4H PRN Administration Pain Hydrocodone Bitart/Acetaminophen 1 tab 05/07/21 15:57 05/13/21 17:05 Hydrocodone/Acetaminophen (*Crx) 5-325 Mg Tablet PO 1 tab Q4H PRN Administration Breakthrough pain Albuterol 2 puff 05/03/21 22:09 Albu
[2021-05-14] MEDS: SODIUM CHLORIDE 0.9% IV 500 ML 30 ML IV CONT (14:18)
--- NOTE | 2021-05-14 14:29 | PC.NURSE ---
On 05/14/21, the student, [ Fanny Balderas], provided care and completed [facility] documentation on this patient. I have reviewed the student's documentation and agree with the findings.
[2021-05-14] MEDS: LIDO 1%/EPINEPHRINE 1:100,000 50 ML VIAL INFILTRATE (15:18)
[2021-05-14] MEDS: HEPARIN SODIUM, PORCINE 10,000 UNITS/10 ML VIAL 10000 UNITS IRRIGATION (15:21)
[2021-05-14] MEDS: HEPARIN SODIUM 5,000 UNITS/ML VIAL 5000 UNITS IRRIGATION (15:23)
--- NOTE | 2021-05-14 15:54 | W.PM.PROC2 ---
Procedure Note - Detailed Date of Procedure 05/14/21 Pre-op Diagnosis End-stage renal disease, inadequate venous access for dialysis Post-op Diagnosis Same Procedure Performed Placement right internal jugular tunneled central venous catheter for dialysis under fluoroscopy Surgeon Dawood Justin MD [employer] Jes MOORE Anesthesia General and Local (0.25% Marcaine with epinephrine) Indications Patient has developed complication of his peritoneal dialysis with peritonitis growing Klebsiella. He has been admitted and needs hemodialysis. I was asked to place a tunneled central venous catheter for this purpose. Findings Tip of the catheter in the distal superior vena cava right atrial junction Description of Procedure Patient was taken to surgery and induced into general anesthesia. The right neck and right subclavian areas were prepped and draped. Patient was placed in Trendelenburg. Local anesthetic was infiltrated over the internal jugular vein in the right neck. The internal jugular vein was cannulated and a guidewire was able to be passed into the vein and the superior vena cava. The position of the guidewire was confirmed with C-arm fluoroscopy. I then passed the 36 cm length dual-lumen dura flow catheter over the patient's chest and neck and approximated the position it would need for the tip to be in the SVC right atrial junction. I then marked counter incisions appropriately on the upper chest and neck. Local anesthesia was infiltrated in the areas of each of the counter incisions. The incisions were then made at each site. I then tunneled the dura flow catheter retrograde from the subclavian position through each of the counter incisions and then out the incision associated with the exit of the guidewire. Under fluoroscopy, the serial dilators were passed over the guidewire and into the vena cava. I then passed the introducer and sheath over the guidewire into the superior vena cava. The position was good by fluoro. I removed the introducer and guidewire. I passed the end of the dura flow catheter down the sheath and into the distal superior vena cava. The sheath was removed. I reviewed the catheter under fluoroscopy. It appeared to have a smooth curve going into the superior vena cava and the tip was in the distal vena cava at the right atrial junction. I checked each port and they both aspirated blood easily and flushed well with heparin. Final flush was passed in each port and they were capped. I then closed each of the incisions including the entrance site of the dura flow catheter in subcuticular fashion with 4-0 Vicryl interrupted suture. 3-0 nylon suture were used to secure the catheter hub to the skin as well. The counter incisions were dressed with Exofin surgical adhesive. A sterile transparent dressing was placed over the exit site of the catheter. The patient was then taken to recovery in good condition. Sponge and needle counts were correct x2. Implants 36 cm length tunneled dura flow central venous catheter Estimated Blood Loss -5 Urine Output 0 Drains No Packing No Pathology None sent Complications No immediate complications Condition Stable Disposition PACU
--- NOTE | 2021-05-14 16:18 | SUR.PHASEI ---
1616: Simple mask removed.
[2021-05-14 16:19] LABS: Glucose Point of Care 144 mg/dl (65-105)
[2021-05-14] MEDS: HYDROcodone/acetaminophen (*CRX) 5-325 MG TABLET 1 TAB PO (20:46)
[2021-05-14] MEDS: HEPARIN SODIUM 5,000 UNITS/ML VIAL 5000 UNITS SUB-Q (20:46)
[2021-05-14 21:03] LABS: Glucose Point of Care 132 mg/dl (65-105)
[2021-05-14] MEDS: MORPHINE SULFATE (*CRX) 2 MG/ML INJ IV PUSH (23:54)
[2021-05-15] VITALS (18 sets, daily range): BP systolic 122–161; BP diastolic 70–93; PULSE 70–98; RESP 12–20; TEMP 36–37.4; O2SAT 100
[2021-05-15 06:01] LABS: Basophils Absolute Auto 0.1 K/mm3 (0.0-0.1); Basophils Percent Auto 0.6 % (0.2-1.2); Eosinophils Absolute Auto 0.2 K/mm3 (0-0.3); Eosinophils Percent Auto 1.4 % (0-4.4); Hematocrit 24.8 % (42.0-52.0); Hemoglobin 7.8 g/dL (14.0-18.0); Immature Granulocyte Percent A 2.9 % (0-0.5); Lymphocytes Absolute Auto 3.13 K/mm3 (0.9-3.2); Lymphocytes Percent Auto 22.5 % (18.3-44.2); Mean Corpuscular HGB Conc 31.5 g/dl (32-36); Mean Corpuscular Hemoglobin 30.5 pg (26-34); Mean Corpuscular Volume 96.9 fl (80-100); Mean Platelet Volume 8.7 fl (7.4-10.4); Monocytes Absolute Auto 0.8 K/mm3 (0.1-0.6); Monocytes Percent Auto 5.6 % (2.6-8.5); Neutrophils Absolute Auto 9.4 K/mm3 (1.3-6.7); Nucleated Red Blood Cells Absolute Auto 0.1 K/mm3 (0.0-0.012); Nucleated Red Blood Cells Perc 0.6 % (0.0-0.2); Platelet Count Result 402 k/mm3 (150-375); Red Blood Count 2.56 M/mm3 (4.6-6.20); Red Cell Distribution Width 15.1 % (11.5-14.5); White Blood Count 13.9 K/mm3 (4.5-10.0)
[2021-05-15 06:14] LABS: Anion Gap 6 mmol/L (8-16); Blood Urea Nitrogen 61 mg/dL (9-20); Calcium 10.3 mg/dL (8.4-10.2); Carbon Dioxide 30 mmol/L (22-30); Chloride 97 mmol/L (98-107); Estimated CRCL calculation 9 ml/min; Estimated Glomerular Filt Rate 5; Glucose 135 mg/dL (65-110); Potassium 4.3 mmol/L (3.4-5.0); Sodium 133 mmol/L (137-145)
[2021-05-15 07:53] LABS: Glucose Point of Care 129 mg/dl (65-105)
--- NOTE | 2021-05-15 08:39 | WPDANESPN ---
Anes - Prog Note Post-Op Date/Time: 05/15/21 08:39 Cardiovascular status: normal Respiratory status: normal Airway patency: baseline Mental status: baseline Post-Op hydration status: normal Vital Signs: Last Vital Signs Temp 37.4 C 05/15/21 05:37 Pulse 84 05/15/21 05:37 Resp 16 05/15/21 05:37 BP 161/93 H 05/15/21 05:37 Pulse Ox 100 05/15/21 05:37 Pain Score (VAS): 0 I/O: Intake & Output 05/14/21 05/15/21 05/15/21 23:59 07:59 15:59 Intake Total 0 Output Total 0 1000 Balance 0 -1000 Laboratory Tests 05/15/21 05:35 05/15/21 05:35 05/14/21 05/14/21 05/14/21 11:32 16:16 20:45 WBC RBC Hgb Hct MCV MCH MCHC RDW Plt Count MPV Immature Gran % (Auto) Neut % (Auto) Lymph % (Auto) [place] % (Auto) Eos % (Auto) Baso % (Auto) Lymph # (Auto) [place] # (Auto) Eos # (Auto) Baso # (Auto) Abs Immat Gran (auto) Absolute Neuts (auto) Absolute Nucleated RBC Nucleated RBC % Sodium Potassium Chloride Carbon Dioxide Anion Gap BUN Creatinine Estim Creat Clear Calc Estimated GFR Glucose POC Capillary Glucose 188 H 144 H 132 H Calcium Hep B Core Total Ab 05/15/21 05/15/21 05/15/21 05:35 05:35 05:35 WBC 13.9 H RBC 2.56 L Hgb 7.8 L Hct 24.8 L MCV 96.9 MCH 30.5 MCHC 31.5 L RDW 15.1 H Plt Count 402 H MPV 8.7 Immature Gran % (Auto) 2.9 H Neut % (Auto) 67.0 Lymph % (Auto) 22.5 [place] % (Auto) 5.6 Eos % (Auto) 1.4 Baso % (Auto) 0.6 Lymph # (Auto) 3.13 [place] # (Auto) 0.8 H Eos # (Auto) 0.2 Baso # (Auto) 0.1 Abs Immat Gran (auto) 0.40 H Absolute Neuts (auto) 9.4 H Absolute Nucleated RBC 0.1 H Nucleated RBC % 0.6 H Sodium 133 L Potassium 4.3 Chloride 97 L Carbon Dioxide 30 Anion Gap 6 L BUN 61 H Creatinine 13.40 H Estim Creat Clear Calc 9 Estimated GFR 5 L Glucose 135 H POC Capillary Glucose Calcium 10.3 H Hep B Core Total Ab Pending 05/15/21 07:50 WBC RBC Hgb Hct MCV MCH MCHC RDW Plt Count MPV Immature Gran % (Auto) Neut % (Auto) Lymph % (Auto) [place] % (Auto) Eos % (Auto) Baso % (Auto) Lymph # (Auto) [place] # (Auto) Eos # (Auto) Baso # (Auto) Abs Immat Gran (auto) Absolute Neuts (auto) Absolute Nucleated RBC Nucleated RBC % Sodium Potassium Chloride Carbon Dioxide Anion Gap BUN Creatinine Estim Creat Clear Calc Estimated GFR Glucose POC Capillary Glucose 129 H Calcium Hep B Core Total Ab Post-procedural complaints: none Patient Feedback: Patient satisfied with anesthetic care.
[2021-05-15] MEDS: HYDROcodone/acetaminophen (*CRX) 5-325 MG TABLET 1 TAB PO (10:22)
[2021-05-15] MEDS: POTASSIUM CHLORIDE 20 MEQ TABLET PO (10:23)
[2021-05-15] MEDS: FLUoxetine HCL 20 MG CAPSULE PO (10:24)
[2021-05-15] MEDS: NIFEdipine 30 MG TAB.ER.24 90 MG PO (10:24)
[2021-05-15] MEDS: CALCIUM ACETATE 667 MG TABLET 2001 MG PO ×2 (10:24→13:24)
[2021-05-15] MEDS: VITAMIN B CMPLX/VIT C/FOLIC AC 1 CAPSULE 1 CAP PO (10:24)
[2021-05-15] MEDS: HEPARIN SODIUM 5,000 UNITS/ML VIAL 5000 UNITS SUB-Q ×2 (10:25→20:31)
[2021-05-15] MEDS: ASPIRIN 81 MG CHEWABLE TABLET PO (10:25)
[2021-05-15] MEDS: DOCUSATE SODIUM 100 MG CAPSULE PO ×2 (10:25→20:32)
[2021-05-15] MEDS: FUROSEMIDE 80 MG TABLET PO (10:25)
[2021-05-15] MEDS: METOPROLOL SUCCINATE EXT REL 25 MG TABCR PO (10:25)
[2021-05-15] MEDS: polyethylene glycoL 3350 17 GM POWD.PACK PO (10:26)
[2021-05-15] MEDS: LACTULOSE 20 GM/30 ML UDC PO (10:26)
[2021-05-15 11:24] LABS: Glucose Point of Care 127 mg/dl (65-105)
[2021-05-15] MEDS: SIMETHICONE 80 MG TAB.CHEW PO ×2 (13:24→20:31)
--- NOTE | 2021-05-15 17:08 | P.PNNP_ITS ---
Progress Note: A&P Assessment and Plan (1) End stage renal disease: Code(s): N18.6 - End stage renal disease Status: Chronic Assessment and Plan: * transitioning to hemodialysis today * follow electrolytes, volume status, and clearance * last CT scan of abd/pelvis noted (ileus) * on bowel regimen * supportive therapy * given recurrent episodes of peritonitis and poor ultrafiltration with PD, I suspect peritoneal membrane failure * discussed case with primary hide washer and his outpatient PD nurse * recommend back-up hemodialysis to allow peritoneal membrane to heal * HD for now and then reassess PD in a few weeks to determine if he can resume peritoneal dialysis * HD today and likely tomorrow * will need outpatient HD arranged ([facility] under care of Dr. Bianchi) (2) Peritonitis: Code(s): K65.9 - Peritonitis, unspecified Status: Acute Assessment and Plan: * associated with potential contamination doing peritoneal dialysis * however, Klebsiella is not a typical organism associated with contamination * results of CT of abd/pelvis noted * PD fluid culture with Klebsiella * continue antibiotics as is (will likely transition to IV ceftazidime post HD to complete 2 week course) * last PD fluid cell count showing significant improvement in inflammation (3) Hypertension: Qualifiers: Hypertension type: primary hypertension Qualified Code(s): I10 - Essential (primary) hypertension Code(s): I10 - Essential (primary) hypertension Status: Chronic Assessment and Plan: * reasonable control at this time * continue home medications * follow trend of hemodynamics (4) Anemia: Code(s): D64.9 - Anemia, unspecified Status: Chronic Assessment and Plan: * due to ESRD and acute illness * Epogen while hospitalized * follow trend of H/H (5) Diabetes: Code(s): E11.9 - Type 2 diabetes mellitus without complications Status: Chronic Assessment and Plan: * follow accuchecks * glycemic control Will continue to follow. Subjective Date/time seen: 05/15/21 17:08 Tolerating dialysis at the time of my visit (seen on HD at 4:30PM); s/p tunneled HD catheter placement yesterday afternoon and tolerated the procedure reasonably well; no apparent distress to report; no issues overnight or earlier this AM. Exam Narrative: General: WD/WN AA male in NAD Heart: normal S1 and S2; no rub Lungs: clear to auscultation Abdomen: soft, mild distension, positive bowel sounds Extremities: no cyanosis or clubbing; trace edema Skin: warm and intact Objective Data Vital Signs Vital Signs: Vital Signs Temp Pulse Resp BP Pulse Ox 05/15/21 17:00 81 141/84 H 05/15/21 16:45 81 146/81 H 05/15/21 16:30 86 147/86 H 05/15/21 16:25 82 147/79 H 05/15/21 16:15 36.7 C 98 16 145/77 H 100 05/15/21 14:00 37.2 C 82 20 156/86 H 100 05/15/21 05:37 37.4 C 84 16 161/93 H 100 05/14/21 21:16 36.5 C 81 16 160/93 H 100 Intake/Output Intake/Output: Intake & Output 05/12/21 05/13/21 05/14/21 05/15/21 23:59 23:59 23:59 23:59 Intake Total 1180 640 100 228 Output Total 064 -959 -018 1000 Balance 691 1410 931 -010 Meds/Results M
--- NOTE | 2021-05-15 17:08 | PM.PNNEP ---
Progress Note: A&P Assessment and Plan (1) End stage renal disease: Code(s): N18.6 - End stage renal disease Status: Chronic Assessment and Plan: transitioning to hemodialysis today follow electrolytes, volume status, and clearance last CT scan of abd/pelvis noted (ileus) on bowel regimen supportive therapy given recurrent episodes of peritonitis and poor ultrafiltration with PD, I suspect peritoneal membrane failure discussed case with primary diesel lube tech and his outpatient PD nurse recommend back-up hemodialysis to allow peritoneal membrane to heal HD for now and then reassess PD in a few weeks to determine if he can resume peritoneal dialysis HD today and likely tomorrow will need outpatient HD arranged ([facility] under care of Dr. Bianchi) (2) Peritonitis: Code(s): K65.9 - Peritonitis, unspecified Status: Acute Assessment and Plan: associated with potential contamination doing peritoneal dialysis however, Klebsiella is not a typical organism associated with contamination results of CT of abd/pelvis noted PD fluid culture with Klebsiella continue antibiotics as is (will likely transition to IV ceftazidime post HD to complete 2 week course) last PD fluid cell count showing significant improvement in inflammation (3) Hypertension: Qualifiers: Hypertension type: primary hypertension Qualified Code(s): I10 - Essential (primary) hypertension Code(s): I10 - Essential (primary) hypertension Status: Chronic Assessment and Plan: reasonable control at this time continue home medications follow trend of hemodynamics (4) Anemia: Code(s): D64.9 - Anemia, unspecified Status: Chronic Assessment and Plan: due to ESRD and acute illness Epogen while hospitalized follow trend of H/H (5) Diabetes: Code(s): E11.9 - Type 2 diabetes mellitus without complications Status: Chronic Assessment and Plan: follow accuchecks glycemic control Will continue to follow. Subjective Date/time seen: 05/15/21 17:08 Tolerating dialysis at the time of my visit (seen on HD at 4:30PM); s/p tunneled HD catheter placement yesterday afternoon and tolerated the procedure reasonably well; no apparent distress to report; no issues overnight or earlier this AM. Exam Narrative: General: WD/WN AA male in NAD Heart: normal S1 and S2; no rub Lungs: clear to auscultation Abdomen: soft, mild distension, positive bowel sounds Extremities: no cyanosis or clubbing; trace edema Skin: warm and intact Objective Data Vital Signs Vital Signs: Vital Signs Temp Pulse Resp BP Pulse Ox 05/15/21 17:00 81 141/84 H 05/15/21 16:45 81 146/81 H 05/15/21 16:30 86 147/86 H 05/15/21 16:25 82 147/79 H 05/15/21 16:15 36.7 C 98 16 145/77 H 100 05/15/21 14:00 37.2 C 82 20 156/86 H 100 05/15/21 05:37 37.4 C 84 16 161/93 H 100 05/14/21 21:16 36.5 C 81 16 160/93 H 100 Intake/Output Intake/Output: Intake & Output 05/12/21 05/13/21 05/14/21 05/15/21 23:59 23:59 23:59 23:59 Intake Total 1180 640 100 228 Output Total 168 -114 -999 1000 Balance 691 1410 487 -254 Meds/Results Medications: Active Medications Generic Name Dose Route Start Last Admin Trade Name Freq PRN Reason Stop Dose Admin Acetaminophen 500 mg 05/14/21 18:33 Acetaminophen 500 Mg Tablet PO Q6H PRN Mild Pain (1-3) or Fever Hydrocodone Bitart/Acetaminophen 1 tab 05/07/21 15:57 05/14/21 20:46 Hydrocodone/Acetaminophen (*Crx) 5-325 Mg Tablet PO 1 tab Q4H PRN Administration Breakthrough pain Hydrocodone Bitart/Acetaminophen 1 tab 05/14/21 18:33 05/15/21 10:22 Hydrocodone/Acetaminophen (*Crx) 5-325 Mg Tablet PO 1 tab Q4H PRN Administration Pain Rated 4-6 Albuterol 2 puff 05/03/21 22:09 Albuterol Sulfate (*Sp) Aerosol 1 Puff INHALATION
--- NOTE | 2021-05-15 17:47 | PCPTNOTE ---
The patient treatment was not able to be completed today. Patient declined in A.M. on first attempt and then out of room for dialysis in P.M., not able to be seen. PT will continue to follow per plan of care.
--- NOTE | 2021-05-15 18:13 | PM.IMPN ---
Progress Note: A&P Assessment and Plan (1) Peritonitis, dialysis-associated: Qualifiers: Encounter type: subsequent encounter Qualified Code(s): T85.71XD - Infection and inflammatory reaction due to peritoneal dialysis catheter, subsequent encounter Code(s): T85.71XA - Infection and inflammatory reaction due to peritoneal dialysis catheter, initial encounter Status: Acute Assessment and Plan: Patient presented with abdominal pain and cloudy peritoneal fluid 4 days following contamination of his PD catheter Peritoneal fluid culture with growth of Klebsiella oxytoca sensitive to cefepime Blood cultures pending, negative to date Continue IV cefepime. Dosing of ceftazidime through the PD catheter per Nephrology. POD#1 RIJ tunneled cather -Planned for HD today Case management is working to arrange outpatient HD Increased WBC likely reactive as patient is clinically improved. (2) End-stage renal disease on peritoneal dialysis: Code(s): N18.6 - End stage renal disease; Z99.2 - Dependence on renal dialysis Status: Acute Assessment and Plan: Planned for temporary HD while resolving peritonitis. 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 (4) Hypertension: Qualifiers: Hypertension type: primary hypertension Qualified Code(s): I10 - Essential (primary) hypertension Code(s): I10 - Essential (primary) hypertension Status: Chronic Assessment and Plan: Blood pressure reviewed and has been reasonably controlled. Continue nifedipine watch Bps Clonidine PRN BP >170/100 BP control has improved (5) Normocytic anemia: Code(s): D64.9 - Anemia, unspecified Status: Acute Assessment and Plan: Likely chronic secondary to ESRD continue to monitor (6) Hyponatremia: Code(s): E87.1 - Hypo-osmolality and hyponatremia Status: Acute Assessment and Plan: continue to monitor (7) Ileus: Code(s): K56.7 - Ileus, unspecified Status: Resolved Assessment and Plan: This appears to resolving. -Appreciate recommendations from General Surgery Additional Plan . Subjective Date/time seen: Date of Service 05/15/21 0915 Patient says the area where the catheter was inserted is painful. Patient says when he previously had a tunneled catheter he had no pain in that area after the insertion. Says his abdomen feels better and that he had more bowel movements. Review of Systems Gastrointestinal: Gastrointestinal: Denies constipation Exam Narrative: GENERAL: NAD, cooperative HEENT: Normocephalic, atraumatic, anicteric NECK: Supple, R. tunneled catheter CV: Normal S1, S2, RRR, No MRG RESP: CTAB Abdomen: soft, nontender, nondistended EXTREMITIES: Warm and well perfused. SKIN: warm, dry and intact. NEURO:CN 2-12 grossly intact. Objective Data Vital Signs Vital Signs: Vital Signs - 24 hr 05/14/21 21:16 05/15/21 05:37 05/15/21 14:00 Temperature 97.7 F 99.3 F 98.9 F Pulse Rate 81 84 82 Respiratory Rate 16 16 20 Blood Pressure 160/93 H 161/93 H 156/86 H Pulse Oximetry 100 100 100 05/15/21 16:15 05/15/21 16:25 05/15/21 16:30 Temperature 98.0 F Pulse Rate 98 82 86 Respiratory Rate 16 Blood Pressure 145/77 H 147/79 H 147/86 H Pulse Oximetry 100 05/15/21 16:45 05/15/21 17:00 05/15/21 17:15 Temperature Pulse Rate 81 81 79 Respiratory Rate Blood Pressure 146/81 H 141/84 H 128/77 Pulse Oximetry 05/15/21 17:30 05/15/21 17:45 Temperature Pulse Rate 70 81 Respiratory Rate Blood Pressure 159/81 H 129/79 Pulse Oximetry Intake/Output Intak
[2021-05-15 19:30] LABS: Glucose Point of Care 107 mg/dl (65-105)
[2021-05-16] VITALS (21 sets, daily range): BP systolic 124–141; BP diastolic 65–93; PULSE 79–89; RESP 12–18; TEMP 36–37.7; O2SAT 99–100
[2021-05-16 06:23] LABS: Basophils Absolute Auto 0.1 K/mm3 (0.0-0.1); Basophils Percent Auto 0.5 % (0.2-1.2); Eosinophils Absolute Auto 0.2 K/mm3 (0-0.3); Eosinophils Percent Auto 1.7 % (0-4.4); Hematocrit 25.7 % (42.0-52.0); Immature Granulocyte Absolute 0.36 K/mm3 (0.00-0.031); Immature Granulocyte Percent A 3.2 % (0-0.5); Lymphocytes Percent Auto 26.6 % (18.3-44.2); Mean Corpuscular HGB Conc 31.1 g/dl (32-36); Mean Corpuscular Hemoglobin 31.4 pg (26-34); Mean Corpuscular Volume 100.8 fl (80-100); Mean Platelet Volume 8.7 fl (7.4-10.4); Monocytes Percent Auto 8.6 % (2.6-8.5); Neutrophils Absolute Auto 6.7 K/mm3 (1.3-6.7); Neutrophils Percent Auto 59.4 % (45.5-73.1); Nucleated Red Blood Cells Absolute Auto 0.1 K/mm3 (0.0-0.012); Nucleated Red Blood Cells Perc 0.6 % (0.0-0.2); Platelet Count Result 396 k/mm3 (150-375); Red Blood Count 2.55 M/mm3 (4.6-6.20); Red Cell Distribution Width 15.4 % (11.5-14.5); White Blood Count 11.3 K/mm3 (4.5-10.0)
[2021-05-16 06:40] LABS: Anion Gap 4 mmol/L (8-16); Blood Urea Nitrogen 48 mg/dL (9-20); Calcium 9.5 mg/dL (8.4-10.2); Carbon Dioxide 31 mmol/L (22-30); Chloride 101 mmol/L (98-107); Estimated CRCL calculation 11 ml/min; Estimated Glomerular Filt Rate 6; Glucose 122 mg/dL (65-110); Potassium 4.3 mmol/L (3.4-5.0); Sodium 136 mmol/L (137-145)
[2021-05-16 08:05] LABS: Glucose Point of Care 146 mg/dl (65-105)
[2021-05-16] MEDS: SIMETHICONE 80 MG TAB.CHEW PO ×3 (08:34→20:34)
[2021-05-16] MEDS: HYDROcodone/acetaminophen (*CRX) 5-325 MG TABLET 1 TAB PO (08:34)
[2021-05-16] MEDS: HEPARIN SODIUM 5,000 UNITS/ML VIAL 5000 UNITS SUB-Q ×2 (08:35→20:35)
[2021-05-16] MEDS: CALCIUM ACETATE 667 MG TABLET 2001 MG PO ×2 (08:35→17:03)
--- NOTE | 2021-05-16 10:58 | PM.IMPN ---
Progress Note: A&P Assessment and Plan (1) Peritonitis, dialysis-associated: Qualifiers: Encounter type: subsequent encounter Qualified Code(s): T85.71XD - Infection and inflammatory reaction due to peritoneal dialysis catheter, subsequent encounter Code(s): T85.71XA - Infection and inflammatory reaction due to peritoneal dialysis catheter, initial encounter Status: Acute Assessment and Plan: Patient presented with abdominal pain and cloudy peritoneal fluid 4 days following contamination of his PD catheter Peritoneal fluid culture with growth of Klebsiella oxytoca sensitive to cefepime Blood cultures pending, negative to date Continue IV cefepime. Dosing of ceftazidime through the PD catheter per Nephrology. POD#1 RIJ tunneled cather -Planned for HD today Case management is working to arrange outpatient HD Increased WBC likely reactive as patient is clinically improved. (2) End-stage renal disease on peritoneal dialysis: Code(s): N18.6 - End stage renal disease; Z99.2 - Dependence on renal dialysis Status: Acute Assessment and Plan: Planned for temporary HD while resolving peritonitis. 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 (4) Hypertension: Qualifiers: Hypertension type: primary hypertension Qualified Code(s): I10 - Essential (primary) hypertension Code(s): I10 - Essential (primary) hypertension Status: Chronic Assessment and Plan: Blood pressure reviewed and has been reasonably controlled. Continue nifedipine watch Bps Clonidine PRN BP >170/100 BP control has improved (5) Normocytic anemia: Code(s): D64.9 - Anemia, unspecified Status: Acute Assessment and Plan: Likely chronic secondary to ESRD continue to monitor (6) Hyponatremia: Code(s): E87.1 - Hypo-osmolality and hyponatremia Status: Acute Assessment and Plan: continue to monitor (7) Ileus: Code(s): K56.7 - Ileus, unspecified Status: Resolved Assessment and Plan: This appears to resolving. -Appreciate recommendations from General Surgery Additional Plan . Time Spent With Patient Time with patient: 15 - 25 minutes Subjective Date/time seen: 05/16/21 0910 This pt. was examined at the bedside in interval assessment since he has started HD after his PD catheter became acutely infected. He states he is starting to feel better and he has less pain than he has had. He tells me today that he didn't realize how sick he was. He denies any CP, dyspnea, N/V at this time. He is supposed to have HD again today. Review of Systems Review of Systems: All systems reviewed & are unremarkable except as noted in HPI and below Exam Narrative: GENERAL: NAD, cooperative HEENT: Normocephalic, atraumatic, anicteric NECK: Supple, R. tunneled catheter CV: Normal S1, S2, RRR, No MRG RESP: CTAB Abdomen: soft, nontender, nondistended EXTREMITIES: Warm and well perfused. SKIN: warm, dry and intact. NEURO:CN 2-12 grossly intact. Objective Data Vital Signs Vital Signs: Vital Signs - 24 hr 05/15/21 14:00 05/15/21 16:15 05/15/21 16:25 Temperature 98.9 F 98.0 F Pulse Rate 82 98 82 Respiratory Rate 20 16 Blood Pressure 156/86 H 145/77 H 147/79 H Pulse Oximetry 100 100 05/15/21 16:30 05/15/21 16:45 05/15/21 17:00 Temperature Pulse Rate 86 81 81 Respiratory Rate Blood Pressure 147/86 H 146/81 H 141/84 H Pulse Oximetry 05/15/21 17:15 05/15/21 17:30 05/15/21 17:45 Temperature Pulse Rate 79 70 81 Respiratory Rate Blood Pressure 128/77 159/81 H 129/79 Pulse Oxime
--- NOTE | 2021-05-16 12:36 | P.PNNP_ITS ---
Progress Note: A&P Assessment and Plan (1) End stage renal disease: Code(s): N18.6 - End stage renal disease Status: Chronic Assessment and Plan: * transitioning to hemodialysis * follow electrolytes, volume status, and clearance * last CT scan of abd/pelvis noted (ileus) * on bowel regimen * supportive therapy * given recurrent episodes of peritonitis and poor ultrafiltration with PD, I suspect peritoneal membrane failure * discussed case with primary multi operation forming machine setter and his outpatient PD nurse * recommend back-up hemodialysis to allow peritoneal membrane to heal * HD for now and then reassess PD in a few months to determine if he can resume peritoneal dialysis * HD today * will need outpatient HD arranged ([facility] under care of Dr. Bianchi) -- I have been told he will likely be on a T/T/S schedule (2) Peritonitis: Code(s): K65.9 - Peritonitis, unspecified Status: Acute Assessment and Plan: * associated with potential contamination doing peritoneal dialysis * however, Klebsiella is not a typical organism associated with contamination * results of CT of abd/pelvis noted * PD fluid culture with Klebsiella * continue antibiotics as is - would have completed 2 weeks of antibiotic therapy by 05/18/21 (hence no need for further outpatient therapy) * last PD fluid cell count showing significant improvement in inflammation (3) Hypertension: Qualifiers: Hypertension type: primary hypertension Qualified Code(s): I10 - Essential (primary) hypertension Code(s): I10 - Essential (primary) hypertension Status: Chronic Assessment and Plan: * reasonable control at this time * continue home medications * follow trend of hemodynamics (4) Anemia: Code(s): D64.9 - Anemia, unspecified Status: Chronic Assessment and Plan: * due to ESRD and acute illness * Epogen while hospitalized * follow trend of H/H (5) Diabetes: Code(s): E11.9 - Type 2 diabetes mellitus without complications Status: Chronic Assessment and Plan: * follow accuchecks * glycemic control Will continue to follow. Subjective Date/time seen: 05/16/21 12:36 Patient tolerating dialysis treatment at the time of my visit (seen on HD at 12:20PM); tolerated hemodialysis yesterday without any issue or problems; no apparent distress noted at this time; no abdominal pain; feels reasonably well; no issues/events overnight or earlier this AM. Exam Narrative: General: WD/WN AA male in NAD Heart: normal S1 and S2; no rub Lungs: clear to auscultation Abdomen: soft, nontender, no distension, positive bowel sounds Extremities: no cyanosis or clubbing; trace edema Skin: no rash or nodules Objective Data Vital Signs Vital Signs: Vital Signs Temp Pulse Resp BP Pulse Ox 05/16/21 10:30 36.7 C 85 16 132/73 99 05/16/21 06:00 36.4 C 81 12 138/81 100 05/15/21 22:00 36.5 C 80 12 131/76 100 05/15/21 19:04 36.6 C 79 16 137/81 100 05/15/21 18:57 80 126/80 05/15/21 18:45 81 122/83 05/15/21 18:30 80 131/85 05/15/21 18:15 80 127/70 05/15/21 18:00 80 127/75 05/15/21 17:45 81 129/79 05/15/21 17:30 70 159/81 H 05/15/21 17:15 79 128/77 05/15/21 17:00 81 141/84 H 05/15/21 16
--- NOTE | 2021-05-16 12:36 | PM.PNNEP ---
Progress Note: A&P Assessment and Plan (1) End stage renal disease: Code(s): N18.6 - End stage renal disease Status: Chronic Assessment and Plan: transitioning to hemodialysis follow electrolytes, volume status, and clearance last CT scan of abd/pelvis noted (ileus) on bowel regimen supportive therapy given recurrent episodes of peritonitis and poor ultrafiltration with PD, I suspect peritoneal membrane failure discussed case with primary middle school technology teacher and his outpatient PD nurse recommend back-up hemodialysis to allow peritoneal membrane to heal HD for now and then reassess PD in a few months to determine if he can resume peritoneal dialysis HD today will need outpatient HD arranged ([facility] under care of Dr. Bianchi) -- I have been told he will likely be on a T/T/S schedule (2) Peritonitis: Code(s): K65.9 - Peritonitis, unspecified Status: Acute Assessment and Plan: associated with potential contamination doing peritoneal dialysis however, Klebsiella is not a typical organism associated with contamination results of CT of abd/pelvis noted PD fluid culture with Klebsiella continue antibiotics as is - would have completed 2 weeks of antibiotic therapy by 05/18/21 (hence no need for further outpatient therapy) last PD fluid cell count showing significant improvement in inflammation (3) Hypertension: Qualifiers: Hypertension type: primary hypertension Qualified Code(s): I10 - Essential (primary) hypertension Code(s): I10 - Essential (primary) hypertension Status: Chronic Assessment and Plan: reasonable control at this time continue home medications follow trend of hemodynamics (4) Anemia: Code(s): D64.9 - Anemia, unspecified Status: Chronic Assessment and Plan: due to ESRD and acute illness Epogen while hospitalized follow trend of H/H (5) Diabetes: Code(s): E11.9 - Type 2 diabetes mellitus without complications Status: Chronic Assessment and Plan: follow accuchecks glycemic control Will continue to follow. Subjective Date/time seen: 05/16/21 12:36 Patient tolerating dialysis treatment at the time of my visit (seen on HD at 12:20PM); tolerated hemodialysis yesterday without any issue or problems; no apparent distress noted at this time; no abdominal pain; feels reasonably well; no issues/events overnight or earlier this AM. Exam Narrative: General: WD/WN AA male in NAD Heart: normal S1 and S2; no rub Lungs: clear to auscultation Abdomen: soft, nontender, no distension, positive bowel sounds Extremities: no cyanosis or clubbing; trace edema Skin: no rash or nodules Objective Data Vital Signs Vital Signs: Vital Signs Temp Pulse Resp BP Pulse Ox 05/16/21 10:30 36.7 C 85 16 132/73 99 05/16/21 06:00 36.4 C 81 12 138/81 100 05/15/21 22:00 36.5 C 80 12 131/76 100 05/15/21 19:04 36.6 C 79 16 137/81 100 05/15/21 18:57 80 126/80 05/15/21 18:45 81 122/83 05/15/21 18:30 80 131/85 05/15/21 18:15 80 127/70 05/15/21 18:00 80 127/75 05/15/21 17:45 81 129/79 05/15/21 17:30 70 159/81 H 05/15/21 17:15 79 128/77 05/15/21 17:00 81 141/84 H 05/15/21 16:45 81 146/81 H 05/15/21 16:30 86 147/86 H 05/15/21 16:25 82 147/79 H 05/15/21 16:15 36.7 C 98 16 145/77 H 100 05/15/21 14:00 37.2 C 82 20 156/86 H 100 Intake/Output Intake/Output: Intake & Output 05/13/21 05/14/21 05/15/21 05/16/21 23:59 23:59 23:59 23:59 Intake Total 640 100 328 390 Output Total -770 -659 2500 Balance 1410 709 -3052 390 Meds/Results Medications: Active Medications Generic Name Dose Route Start Last Admin Trade Name Freq PRN Reason Stop Dose Admin Acetaminophen 500 mg 05/14/21 18:33 Acetaminophen 500 Mg Tablet PO Q6H PRN Mild Pain (1-3) or Fever Hy
[2021-05-16] MEDS: EPOETIN ALFA-EPBX 20,000 UNITS/ML VIAL 20000 UNITS IV PUSH (14:55)
[2021-05-16] MEDS: METOPROLOL SUCCINATE EXT REL 25 MG TABCR PO (15:09)
[2021-05-16] MEDS: VITAMIN B CMPLX/VIT C/FOLIC AC 1 CAPSULE 1 CAP PO (15:09)
[2021-05-16] MEDS: FUROSEMIDE 80 MG TABLET PO (15:09)
[2021-05-16] MEDS: ASPIRIN 81 MG CHEWABLE TABLET PO (15:09)
[2021-05-16] MEDS: NIFEdipine 30 MG TAB.ER.24 90 MG PO (15:09)
[2021-05-16] MEDS: FLUoxetine HCL 20 MG CAPSULE PO (15:09)
[2021-05-16] MEDS: POTASSIUM CHLORIDE 20 MEQ TABLET PO (15:09)
[2021-05-16 16:56] LABS: Glucose Point of Care 161 mg/dl (65-105)
[2021-05-16 20:14] LABS: Glucose Point of Care 195 mg/dl (65-105)
[2021-05-16] MEDS: DOCUSATE SODIUM 100 MG CAPSULE PO (20:34)
[2021-05-17 06:00] VITALS: BP 145/81; PULSE 88; RESP 12; TEMP 37.1; O2SAT 100
[2021-05-17 06:40] LABS: Basophils Absolute Auto 0.1 K/mm3 (0.0-0.1); Basophils Percent Auto 0.7 % (0.2-1.2); Eosinophils Absolute Auto 0.2 K/mm3 (0-0.3); Eosinophils Percent Auto 1.6 % (0-4.4); Hematocrit 25.4 % (42.0-52.0); Hemoglobin 7.4 g/dL (14.0-18.0); Immature Granulocyte Percent A 4.2 % (0-0.5); Lymphocytes Absolute Auto 3.51 K/mm3 (0.9-3.2); Lymphocytes Percent Auto 29.2 % (18.3-44.2); Mean Corpuscular HGB Conc 29.1 g/dl (32-36); Mean Corpuscular Hemoglobin 30.7 pg (26-34); Mean Corpuscular Volume 105.4 fl (80-100); Mean Platelet Volume 8.9 fl (7.4-10.4); Monocytes Absolute Auto 1.2 K/mm3 (0.1-0.6); Monocytes Percent Auto 9.6 % (2.6-8.5); Neutrophils Absolute Auto 6.6 K/mm3 (1.3-6.7); Neutrophils Percent Auto 54.7 % (45.5-73.1); Nucleated Red Blood Cells Absolute Auto 0.1 K/mm3 (0.0-0.012); Nucleated Red Blood Cells Perc 0.7 % (0.0-0.2); Platelet Count Result 389 k/mm3 (150-375); Red Blood Count 2.41 M/mm3 (4.6-6.20); Red Cell Distribution Width 15.8 % (11.5-14.5)
[2021-05-17 06:55] LABS: Alanine Aminotransferase 15 U/L (4-50); Albumin Level 2.9 g/dL (3.5-5.1); Alkaline Phosphatase 119 U/L (38-126); Anion Gap 3 mmol/L (8-16); Aspartate Amino Transferase 27 U/L (17-59); Bilirubin,Total 0.3 mg/dL (0.2-1.3); Blood Urea Nitrogen 34 mg/dL (9-20); Calcium 8.7 mg/dL (8.4-10.2); Carbon Dioxide 28 mmol/L (22-30); Chloride 105 mmol/L (98-107); Estimated CRCL calculation 14 ml/min; Estimated Glomerular Filt Rate 8; Glucose 162 mg/dL (65-110); Magnesium 1.9 mg/dL (1.6-2.3); Potassium 4.4 mmol/L (3.4-5.0); Sodium 136 mmol/L (137-145)
[2021-05-17 07:33] LABS: Glucose Point of Care 158 mg/dl (65-105)
[2021-05-17 08:03] LABS: Anisocytosis 1+ (NORMAL); Hypochromasia 1+ (NORMAL); Platelet Estimate Adequate (Adequate)
[2021-05-17 08:33] VITALS: PULSE 89
[2021-05-17] MEDS: LACTULOSE 20 GM/30 ML UDC PO (08:33)
[2021-05-17] MEDS: POTASSIUM CHLORIDE 20 MEQ TABLET PO (08:33)
[2021-05-17] MEDS: METOPROLOL SUCCINATE EXT REL 25 MG TABCR PO (08:33)
[2021-05-17] MEDS: FLUoxetine HCL 20 MG CAPSULE PO (08:34)
[2021-05-17] MEDS: VITAMIN B CMPLX/VIT C/FOLIC AC 1 CAPSULE 1 CAP PO (08:34)
--- NOTE | 2021-05-17 08:34 | P.PNIM_ITS ---
Progress Note: A&P Assessment and Plan (1) Peritonitis, dialysis-associated: Qualifiers: Encounter type: subsequent encounter Qualified Code(s): T85.71XD - Infection and inflammatory reaction due to peritoneal dialysis catheter, subsequ ent encounter Code(s): T85.71XA - Infection and inflammatory reaction due to peritoneal dialysis catheter, initial encounter Status: Acute Assessment and Plan: Patient presented with abdominal pain and cloudy peritoneal fluid 4 days following contamination of his PD catheter * Peritoneal fluid culture with growth of Klebsiella oxytoca sensitive to cefepime * Blood cultures pending, negative to date * Continue IV cefepime. Dosing of ceftazidime through the PD catheter per Nephrology. * POD#1 RIJ tunneled cather * -Planned for HD today * Case management is working to arrange outpatient HD * Increased WBC likely reactive as patient is clinically improved. * Pt. has continued to improve during his hospitalization. Note from Nephrology reviewed from yesterday states that as of tomorrow, the pt. will have completed a full two week course of abx and will not need any outpatient abx. For today, continue Cefepime. * Causative organism: Klebsiella. * Pt. will continue HD for a Few months to give the peritoneal membrane time to heal. (2) End-stage renal disease on peritoneal dialysis: Code(s): N18.6 - End stage renal disease; Z99.2 - Dependence on renal dialysis Status: Acute Assessment and Plan: Planned for temporary HD while resolving peritonitis. -Will need outpatient HD * Appreciate recommendations from Nephrology * At discharge, the pt. will do HD in [place] under Dr. Bianchi. Schedule should be a --Sat. This will need to be arranged for patient prior to discharge. Appreciate Care coordinations assistance. Look for discharge this week. 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 (4) Hypertension: Qualifiers: Hypertension type: primary hypertension Qualified Code(s): I10 - Essential (primary) hypertension Code(s): I10 - Essential (primary) hypertension Status: Chronic Assessment and Plan: Blood pressure reviewed and has been reasonably controlled. * Continue nifedipine * watch Bps * Clonidine PRN BP >170/100 * BP control has improved * Stable and continuing to monitor. (5) Normocytic anemia: Code(s): D64.9 - Anemia, unspecified Status: Acute Assessment and Plan: Likely chronic secondary to ESRD * continue to monitor with daily labs. * H&H today is 7.4/25.4. Source of anemia is likely anemia of chronic disease secondary to his renal failure. He has no acute blood loss. (6) Hyponatremia: Code(s): E87.1 - Hypo-osmolality and hyponatremia Status: Resolved Assessment and Plan: - Now resolved. Sodium is 136. (7) Ileus: Code(s): K56.7 - Ileus, unspecified Status: Resolved Assessment and Plan: - Resolved and no further issues. - Pt is stooling and passing gas without difficulty. Eating well. Additional Plan . Subjective Date/time seen: 05/17/21 08:30 This pt. was examined at the bedside in interval assessm
--- NOTE | 2021-05-17 08:34 | PM.IMPN ---
Progress Note: A&P Assessment and Plan (1) Peritonitis, dialysis-associated: Qualifiers: Encounter type: subsequent encounter Qualified Code(s): T85.71XD - Infection and inflammatory reaction due to peritoneal dialysis catheter, subsequent encounter Code(s): T85.71XA - Infection and inflammatory reaction due to peritoneal dialysis catheter, initial encounter Status: Acute Assessment and Plan: Patient presented with abdominal pain and cloudy peritoneal fluid 4 days following contamination of his PD catheter Peritoneal fluid culture with growth of Klebsiella oxytoca sensitive to cefepime Blood cultures pending, negative to date Continue IV cefepime. Dosing of ceftazidime through the PD catheter per Nephrology. POD#1 RIJ tunneled cather -Planned for HD today Case management is working to arrange outpatient HD Increased WBC likely reactive as patient is clinically improved. Pt. has continued to improve during his hospitalization. Note from Nephrology reviewed from yesterday states that as of tomorrow, the pt. will have completed a full two week course of abx and will not need any outpatient abx. For today, continue Cefepime. Causative organism: Klebsiella. Pt. will continue HD for a Few months to give the peritoneal membrane time to heal. (2) End-stage renal disease on peritoneal dialysis: Code(s): N18.6 - End stage renal disease; Z99.2 - Dependence on renal dialysis Status: Acute Assessment and Plan: Planned for temporary HD while resolving peritonitis. -Will need outpatient HD Appreciate recommendations from Nephrology At discharge, the pt. will do HD in [place] under Dr. Bianchi. Schedule should be a -TH-Sat. This will need to be arranged for patient prior to discharge. Appreciate Care coordinations assistance. Look for discharge this week. (3) Insulin dependent type 2 diabetes mellitus: Code(s): E11.9 - Type 2 diabetes mellitus without complications; Z79.4 - correction (current) use of insulin Status: Acute Assessment and Plan: - Continue Accu checks - Continue SSI - Continue hypoglycemic protocol - Last A1C was 5.0. (4) Hypertension: Qualifiers: Hypertension type: primary hypertension Qualified Code(s): I10 - Essential (primary) hypertension Code(s): I10 - Essential (primary) hypertension Status: Chronic Assessment and Plan: Blood pressure reviewed and has been reasonably controlled. Continue nifedipine watch Bps Clonidine PRN BP >170/100 BP control has improved Stable and continuing to monitor. (5) Normocytic anemia: Code(s): D64.9 - Anemia, unspecified Status: Acute Assessment and Plan: Likely chronic secondary to ESRD continue to monitor with daily labs. H&H today is 7.4/25.4. Source of anemia is likely anemia of chronic disease secondary to his renal failure. He has no acute blood loss. (6) Hyponatremia: Code(s): E87.1 - Hypo-osmolality and hyponatremia Status: Resolved Assessment and Plan: - Now resolved. Sodium is 136. (7) Ileus: Code(s): K56.7 - Ileus, unspecified Status: Resolved Assessment and Plan: - Resolved and no further issues. - Pt is stooling and passing gas without difficulty. Eating well. Additional Plan . Subjective Date/time seen: 05/17/21 08:30 This pt. was examined at the bedside in interval assessment today. He reports that he feels well overall and much better since first presenting to the hospital. He denies any current dyspnea, CP, N/V/D, and he has no other complaints at this time. He is eating and drinking well without complaints or issues. Nephrology notes from 05/16/21 were reviewed and it is noted that he will continue HD as outpatient in at [facility] under the direction of Dr. Bianchi on a likely //Tue schedule. THIS WILL NEED TO BE ARRANGED FOR HIM. It is also
[2021-05-17] MEDS: HEPARIN SODIUM 5,000 UNITS/ML VIAL 5000 UNITS SUB-Q ×2 (08:35→20:37)
[2021-05-17] MEDS: CALCIUM ACETATE 667 MG TABLET 2001 MG PO ×3 (08:35→17:32)
[2021-05-17] MEDS: DOCUSATE SODIUM 100 MG CAPSULE PO ×2 (08:35→20:36)
[2021-05-17] MEDS: ASPIRIN 81 MG CHEWABLE TABLET PO (08:35)
[2021-05-17] MEDS: polyethylene glycoL 3350 17 GM POWD.PACK PO (08:35)
[2021-05-17] MEDS: FUROSEMIDE 80 MG TABLET PO ×2 (08:35→17:32)
[2021-05-17] MEDS: EPOETIN ALFA-EPBX 20,000 UNITS/ML VIAL 20000 UNITS SUB-Q (11:17)
[2021-05-17] MEDS: SIMETHICONE 80 MG TAB.CHEW PO ×4 (11:17→20:36)
[2021-05-17] MEDS: NIFEdipine 30 MG TAB.ER.24 90 MG PO (11:18)
[2021-05-17 11:37] LABS: Glucose Point of Care 211 mg/dl (65-105)
--- NOTE | 2021-05-17 12:28 | PM.PNNEP ---
Progress Note: A&P Assessment and Plan (1) End stage renal disease: Code(s): N18.6 - End stage renal disease Status: Chronic Assessment and Plan: transitioning to hemodialysis follow electrolytes, volume status, and clearance last CT scan of abd/pelvis noted (ileus) on bowel regimen supportive therapy given recurrent episodes of peritonitis and poor ultrafiltration with PD, I suspect peritoneal membrane failure discussed case with primary gauger chief and his outpatient PD nurse recommend back-up hemodialysis to allow peritoneal membrane to heal HD for now and then reassess PD in a few months to determine if he can resume peritoneal dialysis plan next HD on Tuesday will need outpatient HD arranged ([facility] under care of Dr. Bianchi) -- I have been told he will likely be on a T/T/S schedule (2) Peritonitis: Code(s): K65.9 - Peritonitis, unspecified Status: Acute Assessment and Plan: associated with potential contamination doing peritoneal dialysis however, Klebsiella is not a typical organism associated with contamination results of CT of abd/pelvis noted PD fluid culture with Klebsiella continue antibiotics as is - would have completed 2 weeks of antibiotic therapy by 05/18/21 (hence no need for further outpatient therapy) last PD fluid cell count showing significant improvement in inflammation (3) Hypertension: Qualifiers: Hypertension type: primary hypertension Qualified Code(s): I10 - Essential (primary) hypertension Code(s): I10 - Essential (primary) hypertension Status: Chronic Assessment and Plan: reasonable control at this time continue home medications follow trend of hemodynamics (4) Anemia: Code(s): D64.9 - Anemia, unspecified Status: Chronic Assessment and Plan: due to ESRD and acute illness Epogen while hospitalized follow trend of H/H (5) Diabetes: Code(s): E11.9 - Type 2 diabetes mellitus without complications Status: Chronic Assessment and Plan: follow accuchecks glycemic control Would not be opposed to discharge tomorrow if outpatient HD schedule/center has been finalized. Will continue to follow. Subjective Date/time seen: 05/17/21 12:28 Tolerated hemodialysis treatment yesterday without any issues or problems; no new issues or problems to report; denies any abdominal pain at this time; no issues/events overnight or earlier this morning; overall, feels pretty good. Exam Narrative: General: WD/WN AA male in NAD Heart: normal S1 and S2; no rub Lungs: clear to auscultation Abdomen: soft, nontender, no distension, positive bowel sounds Extremities: no cyanosis or clubbing; trace edema Skin: warm and dry Objective Data Vital Signs Vital Signs: Vital Signs Temp Pulse Resp BP Pulse Ox 05/17/21 08:33 89 05/17/21 06:00 37.1 C 88 12 145/81 H 100 05/16/21 23:26 37.6 C 05/16/21 22:00 37.7 C H 89 14 141/93 H 100 05/16/21 14:30 36.7 C 83 18 136/78 99 Intake/Output Intake/Output: Intake & Output 05/14/21 05/15/21 05/16/21 05/17/21 23:59 23:59 23:59 23:59 Intake Total 100 328 540 290 Output Total -659 2500 1999 Balance 494 -8985 -2465 290 Meds/Results Medications: Active Medications Generic Name Dose Route Start Last Admin Trade Name Freq PRN Reason Stop Dose Admin Acetaminophen 500 mg 05/14/21 18:33 Acetaminophen 500 Mg Tablet PO Q6H PRN Mild Pain (1-3) or Fever Hydrocodone Bitart/Acetaminophen 1 tab 05/07/21 15:57 05/14/21 20:46 Hydrocodone/Acetaminophen (*Crx) 5-325 Mg Tablet PO 1 tab Q4H PRN Administration Breakthrough pain Hydrocodone Bitart/Acetaminophen 1 tab 05/14/21 18:33 05/16/21 08:34 Hydrocodone/Acetaminophen (*Crx) 5-325 Mg Tablet PO 1 tab Q4H PRN Administration Pain Rated 4-6 Albuterol 2 puff 05/03/21 22:09 Albuterol
--- NOTE | 2021-05-17 12:28 | P.PNNP_ITS ---
Progress Note: A&P Assessment and Plan (1) End stage renal disease: Code(s): N18.6 - End stage renal disease Status: Chronic Assessment and Plan: * transitioning to hemodialysis * follow electrolytes, volume status, and clearance * last CT scan of abd/pelvis noted (ileus) * on bowel regimen * supportive therapy * given recurrent episodes of peritonitis and poor ultrafiltration with PD, I suspect peritoneal membrane failure * discussed case with primary chisel trimmer and his outpatient PD nurse * recommend back-up hemodialysis to allow peritoneal membrane to heal * HD for now and then reassess PD in a few months to determine if he can resume peritoneal dialysis * plan next HD on Tuesday * will need outpatient HD arranged ([facility] under care of Dr. Bianchi) -- I have been told he will likely be on a T/T/S schedule (2) Peritonitis: Code(s): K65.9 - Peritonitis, unspecified Status: Acute Assessment and Plan: * associated with potential contamination doing peritoneal dialysis * however, Klebsiella is not a typical organism associated with contamination * results of CT of abd/pelvis noted * PD fluid culture with Klebsiella * continue antibiotics as is - would have completed 2 weeks of antibiotic therapy by 05/18/21 (hence no need for further outpatient therapy) * last PD fluid cell count showing significant improvement in inflammation (3) Hypertension: Qualifiers: Hypertension type: primary hypertension Qualified Code(s): I10 - Essential (primary) hypertension Code(s): I10 - Essential (primary) hypertension Status: Chronic Assessment and Plan: * reasonable control at this time * continue home medications * follow trend of hemodynamics (4) Anemia: Code(s): D64.9 - Anemia, unspecified Status: Chronic Assessment and Plan: * due to ESRD and acute illness * Epogen while hospitalized * follow trend of H/H (5) Diabetes: Code(s): E11.9 - Type 2 diabetes mellitus without complications Status: Chronic Assessment and Plan: * follow accuchecks * glycemic control Would not be opposed to discharge tomorrow if outpatient HD schedule/center has been finalized. Will continue to follow. Subjective Date/time seen: 05/17/21 12:28 Tolerated hemodialysis treatment yesterday without any issues or problems; no new issues or problems to report; denies any abdominal pain at this time; no issues/events overnight or earlier this morning; overall, feels pretty good. Exam Narrative: General: WD/WN AA male in NAD Heart: normal S1 and S2; no rub Lungs: clear to auscultation Abdomen: soft, nontender, no distension, positive bowel sounds Extremities: no cyanosis or clubbing; trace edema Skin: warm and dry Objective Data Vital Signs Vital Signs: Vital Signs Temp Pulse Resp BP Pulse Ox 05/17/21 08:33 89 05/17/21 06:00 37.1 C 88 12 145/81 H 100 05/16/21 23:26 37.6 C 05/16/21 22:00 37.7 C H 89 14 141/93 H 100 05/16/21 14:30 36.7 C 83 18 136/78 99 Intake/Output Intake/Output: Intake & Output 05/14/21 05/15/21 05/16/21 05/17/21 23:59 23:59 23:59 23:59 Intake Total 100 328 540 290 Output Total -659 2500 2000 Balance 405 -5656 -2072 290
[2021-05-17] MEDS: INSULIN ASPART (*BKC) 100 UNITS/ML SUB-Q (13:12)
[2021-05-17 14:00] VITALS: BP 136/78; PULSE 89; RESP 18; TEMP 36.6; O2SAT 100
[2021-05-17 16:37] LABS: Glucose Point of Care 110 mg/dl (65-105)
[2021-05-17 20:45] LABS: Glucose Point of Care 196 mg/dl (65-105)
[2021-05-17 22:00] VITALS: BP 134/85; PULSE 90; RESP 16; TEMP 37.7; O2SAT 100
[2021-05-18 06:00] VITALS: BP 142/84; PULSE 88; RESP 16; TEMP 37.2; O2SAT 100
[2021-05-18 07:56] LABS: Glucose Point of Care 107 mg/dl (65-105)
[2021-05-18] MEDS: VITAMIN B CMPLX/VIT C/FOLIC AC 1 CAPSULE 1 CAP PO (08:47)
[2021-05-18] MEDS: NIFEdipine 30 MG TAB.ER.24 90 MG PO (08:47)
[2021-05-18] MEDS: ASPIRIN 81 MG CHEWABLE TABLET PO (08:47)
[2021-05-18] MEDS: CALCIUM ACETATE 667 MG TABLET 2001 MG PO ×2 (08:47→12:32)
[2021-05-18] MEDS: cloNIDine HCL 0.2 MG TABLET PO (08:47)
[2021-05-18] MEDS: LACTULOSE 20 GM/30 ML UDC PO (08:47)
[2021-05-18] MEDS: HEPARIN SODIUM 5,000 UNITS/ML VIAL 5000 UNITS SUB-Q (08:47)
[2021-05-18] MEDS: DOCUSATE SODIUM 100 MG CAPSULE PO (08:48)
[2021-05-18] MEDS: FUROSEMIDE 80 MG TABLET PO (08:48)
[2021-05-18] MEDS: FLUoxetine HCL 20 MG CAPSULE PO (08:48)
[2021-05-18] MEDS: SIMETHICONE 80 MG TAB.CHEW PO ×2 (08:48→12:32)
[2021-05-18] MEDS: POTASSIUM CHLORIDE 20 MEQ TABLET PO (08:48)
[2021-05-18] MEDS: polyethylene glycoL 3350 17 GM POWD.PACK PO (08:48)
[2021-05-18 08:49] VITALS: PULSE 85
[2021-05-18] MEDS: METOPROLOL SUCCINATE EXT REL 25 MG TABCR PO (08:49)
--- NOTE | 2021-05-18 11:18 | P.PNIM_ITS ---
Progress Note: A&P Assessment and Plan (1) Peritonitis, dialysis-associated: Qualifiers: Encounter type: subsequent encounter Qualified Code(s): T85.71XD - Infection and inflammatory reaction due to peritoneal dialysis catheter, subsequ ent encounter Code(s): T85.71XA - Infection and inflammatory reaction due to peritoneal dialysis catheter, initial encounter Status: Acute Assessment and Plan: Patient presented with abdominal pain and cloudy peritoneal fluid 4 days following contamination of his PD catheter * Peritoneal fluid culture with growth of Klebsiella oxytoca sensitive to cefepime * Blood cultures pending, negative to date * Continue IV cefepime. Dosing of ceftazidime through the PD catheter per Nephrology. RIJ tunneled cather * -Planned for HD today * Case management is working to arrange outpatient HD * Increased WBC likely reactive as patient is clinically improved. * Pt. has continued to improve during his hospitalization. Note from Nephrology reviewed from yesterday states that as of tomorrow, the pt. will have completed a full two week course of abx and will not need any outpatient abx. For today, continue Cefepime. * Causative organism: Klebsiella. * Pt. will continue HD for a Few months to give the peritoneal membrane time to heal. (2) End-stage renal disease on peritoneal dialysis: Code(s): N18.6 - End stage renal disease; Z99.2 - Dependence on renal dialysis Status: Acute Assessment and Plan: Planned for temporary HD while resolving peritonitis. -Will need outpatient HD * Appreciate recommendations from Nephrology * At discharge, the pt. will do HD in [place] under Dr. Bianchi. Schedule should be a --Sat. This will need to be arranged for patient prior to discharge. Appreciate Care coordinations assistance. Look for discharge tomorrow if OK with Nephrology. 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 (4) Hypertension: Qualifiers: Hypertension type: primary hypertension Qualified Code(s): I10 - Essential (primary) hypertension Code(s): I10 - Essential (primary) hypertension Status: Chronic Assessment and Plan: Blood pressure reviewed and has been reasonably controlled. * Continue nifedipine * watch Bps * Clonidine PRN BP >170/100 * BP control has improved * Stable and continuing to monitor. (5) Normocytic anemia: Code(s): D64.9 - Anemia, unspecified Status: Acute Assessment and Plan: Likely chronic secondary to ESRD * continue to monitor with daily labs. * H&H today is 7.4/25.4. Source of anemia is likely anemia of chronic disease secondary to his renal failure. He has no acute blood loss. (6) Hyponatremia: Code(s): E87.1 - Hypo-osmolality and hyponatremia Status: Resolved Assessment and Plan: - Now resolved. Sodium is 136. (7) Ileus: Code(s): K56.7 - Ileus, unspecified Status: Resolved Assessment and Plan: - Resolved and no further issues. - Pt is stooling and passing gas without difficulty. Eating well. Additional Plan . Time Spent With Patient Time with patient: 15 - 25 minutes Subjective Date/time see
--- NOTE | 2021-05-18 11:18 | PM.IMPN ---
Progress Note: A&P Assessment and Plan (1) Peritonitis, dialysis-associated: Qualifiers: Encounter type: subsequent encounter Qualified Code(s): T85.71XD - Infection and inflammatory reaction due to peritoneal dialysis catheter, subsequent encounter Code(s): T85.71XA - Infection and inflammatory reaction due to peritoneal dialysis catheter, initial encounter Status: Acute Assessment and Plan: Patient presented with abdominal pain and cloudy peritoneal fluid 4 days following contamination of his PD catheter Peritoneal fluid culture with growth of Klebsiella oxytoca sensitive to cefepime Blood cultures pending, negative to date Continue IV cefepime. Dosing of ceftazidime through the PD catheter per Nephrology. RIJ tunneled cather -Planned for HD today Case management is working to arrange outpatient HD Increased WBC likely reactive as patient is clinically improved. Pt. has continued to improve during his hospitalization. Note from Nephrology reviewed from yesterday states that as of tomorrow, the pt. will have completed a full two week course of abx and will not need any outpatient abx. For today, continue Cefepime. Causative organism: Klebsiella. Pt. will continue HD for a Few months to give the peritoneal membrane time to heal. (2) End-stage renal disease on peritoneal dialysis: Code(s): N18.6 - End stage renal disease; Z99.2 - Dependence on renal dialysis Status: Acute Assessment and Plan: Planned for temporary HD while resolving peritonitis. -Will need outpatient HD Appreciate recommendations from Nephrology At discharge, the pt. will do HD in [place] under Dr. Bianchi. Schedule should be a T-TH-Sat. This will need to be arranged for patient prior to discharge. Appreciate Care coordinations assistance. Look for discharge tomorrow if OK with Nephrology. (3) Insulin dependent type 2 diabetes mellitus: Code(s): E11.9 - Type 2 diabetes mellitus without complications; Z79.4 - senior living (current) use of insulin Status: Acute Assessment and Plan: - Continue Accu checks - Continue SSI - Continue hypoglycemic protocol - Last A1C was 5.0. (4) Hypertension: Qualifiers: Hypertension type: primary hypertension Qualified Code(s): I10 - Essential (primary) hypertension Code(s): I10 - Essential (primary) hypertension Status: Chronic Assessment and Plan: Blood pressure reviewed and has been reasonably controlled. Continue nifedipine watch Bps Clonidine PRN BP >170/100 BP control has improved Stable and continuing to monitor. (5) Normocytic anemia: Code(s): D64.9 - Anemia, unspecified Status: Acute Assessment and Plan: Likely chronic secondary to ESRD continue to monitor with daily labs. H&H today is 7.4/25.4. Source of anemia is likely anemia of chronic disease secondary to his renal failure. He has no acute blood loss. (6) Hyponatremia: Code(s): E87.1 - Hypo-osmolality and hyponatremia Status: Resolved Assessment and Plan: - Now resolved. Sodium is 136. (7) Ileus: Code(s): K56.7 - Ileus, unspecified Status: Resolved Assessment and Plan: - Resolved and no further issues. - Pt is stooling and passing gas without difficulty. Eating well. Additional Plan . Time Spent With Patient Time with patient: 15 - 25 minutes Subjective Date/time seen: 05/18/21 0756 This pt. was examined at the bedside today in interval assessment. He has no complaints and continues to feel well. Today will be his last dose of abx. and he should be having outpatient dialysis set up at [place]. Nephrology advises his next dialysis should be tomorrow, Tuesday. Pt. denies any CP, Dyspnea, N/V. Awaiting Care Coordination's assistance with setting up dialysis for discharge. Review of Systems Review of Systems: All systems reviewe
--- NOTE | 2021-05-18 11:53 | PCNFU ---
Nutrition Follow-Up Complete: Suboptimal po intake related to diet order as evidenced by clear liquid diet status x 5 days Goal: meet caloric needs, po intake 75% or greater Pt is progressing towards goal. Continue with current goal at this time. Pt current nutrition is Renal Dialysis diet and dietary supplements Last recorded weight is 138.9 kg, up 5.9kg from wt reported on admit. Recommend re-weighing prior to discharge. Bowel Motility: +BM reported 05/18/21 Labs Reviewed: Hgb 7.4, Hct 25.4, Alb 2.9, Na 136, GFR 8, BUN 34, Cr 8.60, Glu 162 Meds Noted: Aspirin, Phoslo, Maxipime, Catapres, Colace, Prozac, Lasix, Lactulose, Toprol XL, Procardia XL, Miralax, Kcl, Nephrocaps Skin: No new skin breakdown at this time. WNL. Additional Notes: Pt had HD catheter placed 05/14/21. Pt to start outpatient HD after discharged. Current nutrition is a Renal Dialysis diet and dietary supplements of Nepro BID providing an additional 425kcal and 19g of protein to increase caloric intake. Reported intake is 75% and 100% x4. Pt appears to be tolerating current diet with adequate intake. Agree with diet orders at this time. Will continue to follow. Monitor diet order, tolerance, intake, wt, labs. Follow up in 5 days.
[2021-05-18 12:03] LABS: Glucose Point of Care 146 mg/dl (65-105)
[2021-05-18 14:00] VITALS: BP 154/79; PULSE 82; RESP 20; TEMP 36.5; O2SAT 100
--- NOTE | 2021-05-18 14:19 | P.DS_ITS ---
DS: Admitting Diagnosis Discharge Date 05/18/2021 Admitting Diagnosis 1) Abdominal Pain 2) Peritonitis 3) ESRD 4) DM 5) HTN 6) Normocytic Anemia DS: Discharge Diagnosis Discharge Diagnosis (1) Peritonitis, dialysis-associated: Qualifiers: Encounter type: subsequent encounter Qualified Code(s): T85.71XD - Infection and inflammatory reaction due to peritoneal dialysis catheter, subsequent encounter Code(s): T85.71XA - Infection and inflammatory reaction due to peritoneal dialysis catheter, initial encounter Status: Acute Assessment and Plan: Patient presented with abdominal pain and cloudy peritoneal fluid 4 days following contamination of his PD catheter * Peritoneal fluid culture with growth of Klebsiella oxytoca sensitive to cefepime * Blood cultures pending, negative to date * Continue IV cefepime. Dosing of ceftazidime through the PD catheter per Nephrology. RIJ tunneled cather * -Planned for HD today * Case management is working to arrange outpatient HD * Increased WBC likely reactive as patient is clinically improved. * Pt. has continued to improve during his hospitalization. Note from Nephrology reviewed from yesterday states that as of tomorrow, the pt. will have completed a full two week course of abx and will not need any outpatient abx. For today, continue Cefepime. * Causative organism: Klebsiella. * Pt. will continue HD for a Few months to give the peritoneal membrane time to heal. * Dr. López agreed to discharge on yesterday, and I spoke with Dr. Campos today who agrees that he can be discharged today as his arrangements for outpatient dialysis in is set up for tomorrow to start dialysis with Dr. Bianchi. Pt. will not need any further abx on discharge. There will be no medication changes. (2) End-stage renal disease on peritoneal dialysis: Code(s): N18.6 - End stage renal disease; Z99.2 - Dependence on renal dialysis Status: Acute Assessment and Plan: Planned for temporary HD while resolving peritonitis. -Will need outpatient HD * Appreciate recommendations from Nephrology * At discharge, the pt. will do HD in [place] under Dr. Bianchi. Schedule should be a -TH-Sat. This will need to be arranged for patient prior to discharge. Appreciate Care coordinations assistance. Look for discharge tomorrow if OK with Nephrology. * Dr. López agreed to discharge on yesterday, and I spoke with Dr. Campos today who agrees that he can be discharged today as his arrangements for outpatient dialysis in is set up for tomorrow to start dialysis with Dr. Bianchi. Pt. will not need any further abx on discharge. There will be no medication changes. (3) Insulin dependent type 2 diabetes mellitus: Code(s): E11.9 - Type 2 diabetes mellitus without complications; Z79.4 - correction (current) use of insulin Status: Acute Assessment and Plan: - Continue Accu checks - Continue SSI - Continue hypoglycemic protocol - Last A1C was 5.0. - 05/18: Day of discharge, pt. will resume his home medications. (4) Hypertension: Qualifiers: Hypertension type: primary hypertension Qualified Code(s): I10 - Essential (primary) hypertension Code(s): I10 - Essential (primary) hypertension Status: Chronic Assessment and Plan: Blood pressure reviewed and has been reasonably controlled. * Continue nifedipine * watch Bps * Clonidine PRN BP >170/100 * BP control has improved * Stable and continuing to monitor. * 05/18: discharge home w
--- NOTE | 2021-05-18 14:19 | PM.DS ---
DS: Admitting Diagnosis Discharge Date 05/18/2021 Admitting Diagnosis 1) Abdominal Pain 2) Peritonitis 3) ESRD 4) DM 5) HTN 6) Normocytic Anemia DS: Discharge Diagnosis Discharge Diagnosis (1) Peritonitis, dialysis-associated: Qualifiers: Encounter type: subsequent encounter Qualified Code(s): T85.71XD - Infection and inflammatory reaction due to peritoneal dialysis catheter, subsequent encounter Code(s): T85.71XA - Infection and inflammatory reaction due to peritoneal dialysis catheter, initial encounter Status: Acute Assessment and Plan: Patient presented with abdominal pain and cloudy peritoneal fluid 4 days following contamination of his PD catheter Peritoneal fluid culture with growth of Klebsiella oxytoca sensitive to cefepime Blood cultures pending, negative to date Continue IV cefepime. Dosing of ceftazidime through the PD catheter per Nephrology. RIJ tunneled cather -Planned for HD today Case management is working to arrange outpatient HD Increased WBC likely reactive as patient is clinically improved. Pt. has continued to improve during his hospitalization. Note from Nephrology reviewed from yesterday states that as of tomorrow, the pt. will have completed a full two week course of abx and will not need any outpatient abx. For today, continue Cefepime. Causative organism: Klebsiella. Pt. will continue HD for a Few months to give the peritoneal membrane time to heal. Dr. López agreed to discharge on yesterday, and I spoke with Dr. Campos today who agrees that he can be discharged today as his arrangements for outpatient dialysis in is set up for tomorrow to start dialysis with Dr. Bianchi. Pt. will not need any further abx on discharge. There will be no medication changes. (2) End-stage renal disease on peritoneal dialysis: Code(s): N18.6 - End stage renal disease; Z99.2 - Dependence on renal dialysis Status: Acute Assessment and Plan: Planned for temporary HD while resolving peritonitis. -Will need outpatient HD Appreciate recommendations from Nephrology At discharge, the pt. will do HD in [place] under Dr. Bianchi. Schedule should be a --Sat. This will need to be arranged for patient prior to discharge. Appreciate Care coordinations assistance. Look for discharge tomorrow if OK with Nephrology. Dr. López agreed to discharge on yesterday, and I spoke with Dr. Campos today who agrees that he can be discharged today as his arrangements for outpatient dialysis in is set up for tomorrow to start dialysis with Dr. Bianchi. Pt. will not need any further abx on discharge. There will be no medication changes. 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 - 05/18: Day of discharge, pt. will resume his home medications. (4) Hypertension: Qualifiers: Hypertension type: primary hypertension Qualified Code(s): I10 - Essential (primary) hypertension Code(s): I10 - Essential (primary) hypertension Status: Chronic Assessment and Plan: Blood pressure reviewed and has been reasonably controlled. Continue nifedipine watch Bps Clonidine PRN BP >170/100 BP control has improved Stable and continuing to monitor. 05/18: discharge home with home medications. (5) Normocytic anemia: Code(s): D64.9 - Anemia, unspecified Status: Acute Assessment and Plan: Likely chronic secondary to ESRD continue to monitor with daily labs. H&H today is 7.4/25.4. Source of anemia is likely anemia of chronic disease secondary to his renal failure. He has no acute blood loss. Stable CBC. (6) Hyponatremia: Code(s): E87.1 - Hypo-os
[2021-05-18 15:58] LABS: Glucose Point of Care 209 mg/dl (65-105)
[2021-05-19 20:50] LABS: Hepatitis B Core Ab Total Nonreactive (Nonreactive)
== END 2021-05-18 17:11 | disposition home or self-care (01) | DRG 919 ==
LOC: ANHED 18:26 → ANH3MEDSUR 19:27
PROVIDERS: Family Medicine; Internal Medicine Nephrology; Physician Assistant; Surgery; Admitting Provider Family Medicine; Emergency Provider Emergency Medicine; Visit Provider Nurse Practitioner Adult Health
PROC: 0JH63XZ Insertion of Tunneled Vascular Access Device into Chest Subcutaneous Tissue and Fascia, Percutaneous Approach (ICD-10-PCS; CPT 36908; principal; 2021-05-14 15:30)
DX: T85.71XA Infection and inflammatory reaction due to peritoneal dialysis catheter, initial encounter (principal); N18.6 End stage renal disease; K65.9 Peritonitis, unspecified; I12.0 Hypertensive chronic kidney disease with stage 5 chronic kidney disease or end stage renal disease; E87.1 Hypo-osmolality and hyponatremia; J45.909 Unspecified asthma, uncomplicated; E11.22 Type 2 diabetes mellitus with diabetic chronic kidney disease; Z99.2 Dependence on renal dialysis; Z79.4 Long term (current) use of insulin; Z79.899 Other long term (current) drug therapy; Z79.82 Long term (current) use of aspirin; D63.1 Anemia in chronic kidney disease; B96.1 Klebsiella pneumoniae [K. pneumoniae] as the cause of diseases classified elsewhere; K59.81 Ogilvie syndrome; Y84.8 Other medical procedures as the cause of abnormal reaction of the patient, or of later complication, without mention of misadventure at the time of the procedure
CPT/HCPCS: 36415; 71045; 74018; 74176; 74270; 77001; 80048; 80053; 80069; 80202; 82948; 83036; 83690; 83735; 84295; 85025; 85027; 85610; 85730; 86140; 86704; 86706; 87040; 87070; 87075; 87077; 87186; 87205; 87340; 89051; 90945; 96365; 96366; 96367; 96375; 96376; 97110; 97116; 97161; 97165; 97530; 99285; A9270; C1750; G0257; G0378; J0692; J1644; J1815; J2270; J2370; J2405; J2704; J3010; J3370; J7030; J7040; Q5105

== ENCOUNTER 2024-11-02 07:56 | Observation (INO) | payer MEDICARE, MEDICAID, SELFPAY ==
[2024-11-02] VITALS (48 sets, daily range): BP systolic 99–155; BP diastolic 48–83; PULSE 51–119; RESP 10–21; TEMP 36.3–37; O2SAT 69–100; BMI 35.5
--- NOTE | ~2024-11-02 | XR_ITS ---
EXAMINATION: XR chest 2V DATE: 11/02/2024 08:51 INDICATION: Heart palpitations TECHNIQUE: PA and lateral views of the chest were obtained. COMPARISON: Chest radiograph dated 05/14/2021 FINDINGS: Mild streaky discoid atelectasis/scarring at the bilateral lung bases. No focal airspace opacities, pulmonary edema, pleural effusion or pneumothorax. The cardiomediastinal silhouette is normal. Left axillary stenting. IMPRESSION: 1. Mild streaky bibasilar atelectasis. No other acute cardiopulmonary disease. Reviewed, dictated and finalized at location A.
--- NOTE | 2024-11-02 08:09 | ECG_ITS ---
Test Date: 2024-11-02 08:01:35 Measurements Intervals Carbon Rate: 55 P: 0 IA: 0 QRS: -28 QRSD: 86 T: 145 QT: 452 QTc: 436 Interpretive Statements SINUS BRADYCARDIA WITH PREMATURE ATRIAL CONTRACTIONS INFERIOR MYOCARDIAL INFARCTION , PROBABLY OLD [40+ ms Q WAVE AND/OR ST/T ABNORMALITY IN II/aVF] MODERATE T-WAVE ABNORMALITY, CONSIDER LATERAL ISCHEMIA [-0.1+ mV T-WAVE IN I/aVL/V5/V6] ABNORMAL ECG No previous ECG available for comparison Electronically Signed On 11-02-2024 13:01:54 CDT by Michael Johns M.D.
--- NOTE | 2024-11-02 08:16 | ED_ITS ---
HPI - General Adult General Chief complaint: Arrhythmia/Palpitations Stated complaint: new onset AFIB Time Seen by Provider: 11/02/24 08:09 History of Present Illness HPI narrative: 64-year-old male presents to the emergency department for evaluation for heart palpitations and hypoxia. Prior to starting his dialysis treatment patient was reported to have an episode of bradycardia. EMS states the patient was also having episodes of tachycardia. EMS also reported the patient had issue with hypoxia with a pulse ox in the 70s. Upon arrival emergency department patient was found to be in bigeminy and was saturating well on room air. Patient denies any complaints upon arrival to the emergency department. Patient did not have his dialysis done due to the change in his heart rate. Patient follows up with Dr. Galeano and goes to [facility] dialysis Related Data Home Medications ?Medication ?Instructions ?Recorded ?Confirmed ?Last Taken ?Type albuterol sulfate 90 mcg/actuation 2 puff inhalation B ID PRN Adequate 05/03/21 11/02/24 11/02/24 05:00 History aerosol inhaler Ventilation calcium acetate(phosphat bind) 667 2,001 mg PO TIDWMEA L 05/03/21 11/02/24 11/01/24 09:00 History mg capsule vitamin B complex-vitamin C-folic 1 tablet PO DAILY 11/02/24 05/03/21 History acid 0.8 mg tablet (Christiana-Mirta) 1000 aspirin 81 mg chewable tablet 81 mg PO DAILY 11/02/24 11/02/24 Unknown History loratadine 10 mg tablet 10 mg PO Q24H 11/02/2411/0211/01/24 History Allergies Allergy/AdvReac Type Severity Reaction Status Date / Time shellfish AdvReac Severe Vomiting Uncoded 11/02/24 15:48 Review of Systems 2 Review of Systems: All systems reviewed & are unremarkable except as noted in HPI and below PMFSH Past Medical History Medical History (Updated 11/02/24 @ 18:02 by Ramiro Bran MD) Diabetes Anemia End stage renal disease Hypertension Asthma End-stage renal disease on peritoneal dialysis Insulin dependent type 2 diabetes mellitus Hypertension Peritonitis, dialysis-associated Surgical History Surgical History History of umbilical hernia repair Amputation toe Presence of peritoneal dialysis catheter Family History Family History Father Diabetes mellitus Mother Diabetes mellitus Social History Social History Social History: Surrogate decision maker: Corry Andrews (mother) or Ana Andrews (sister). Code status: Full code. Smoking status: Never smoker Second hand tobacco smoke exposure: No Alcohol intake: never Substance use: current Substance use type: marijuana Last use: 10/19/24 Lack of Transportation: No Lack of Food: Never True Current Housing: I Have Housing Concerned About Future Housing: No Difficulty Paying Gas/Electric Bills: No Difficulty Paying for Meds: No Currently Unemployed: No Education: High School Diploma/GED Difficulty w/ Childcare or Family Care: No Additional living arrangements comments: Lives in [place] with his significant other of many years. He has 3 grown children. Additional occupation/education comments: Disabled. Spiritual care concerns: No Exam 2 Narrative: APPEARANCE: Well appearing, no pain, no distress, well-nourished. HEAD: normocephalic, atraumatic. EYES: PERRLA/EOMI, conjunctivae clear. NOSE: Normal no drainage EARS:TMS clear with good light reflex. THROAT: Pharynx clear, no exudate. NECK: Supple. No adenopathy, no masses. RESPIRATORY: Airway patent, respirations nonlabored. Clear to auscultation bilaterally, no rales, rhonchi, wheezing. CARDIOVASCULAR: Bigeminy ABDOMINAL: Soft, nontender, nondistended, normal bowel sounds MUSCULOSKELETAL: Moves all extremities. Strength/ROM intact, No edema, No calf tenderness. NEURO: Alert. Cranial nerves II through XII intact. Good gait. Good coordination SKIN: Warm, dry. Normal Color Course Vital Signs Vital signs: Vital Signs Temperature 97.7 F 11/02/24 07:55 Pulse Rate 60 11/02/24 07:55 Respiratory Rate 12 11/02/24 07:55 Blood Pressure 147/65 H 11/02/24 07:55 Pulse Oximetry 96 11/02/24 07:55 Oxygen Delivery Room Air 11/02/24 07:55 Temperature 97.9 F 11/02/24 13:29 Pulse Rate 72 11/02/24 17:45 Respiratory Rate 16 11/02/24 13:29 Blood Pressure 118/71 11/02/24 17:45 Pulse Oximetry 100 11/02/24 13:29 Oxygen Delivery Room Air 11/02/24 07:55 Medical Decision Making MDM Narrative Medical decision making narrative: 62-year-old male presents emergency department for evaluation for bradycardia. Patient was found to be in bigeminy upon arrival emergency department patient is asymptomatic denies any pain or complaints. Patient was unable to have his dialysis today and would not be able have dialysis until Tuesday. Case was discussed with Cardiology and they will see the patient as consult. I discussed the case with Nephrology and they will attempt to do dialysis today. Patient was updated the results of his workup and plan for admission. All questions concerns were addressed. Patient is currently afebrile with no leukocytosis hemoglobin 12.1. Patient has a potassium of 5.0 does have a creatinine 1.3 which is similar to his baseline. Differential Diagnosis Differential Diagnosis: Tachy-jose syndrome, AV block type 2, atrial bigeminy Vital Signs Vital Signs: Vital Signs Temperature 97.7 F 11/02/24 07:55 Pulse Rate 60 11/02/24 07:55 Respiratory Rate 12 11/02/24 07:55 Blood Pressure 147/65 H 11/02/24 07:55 Pulse Oximetry 96 11/02/24 07:55 Oxygen Delivery Room Air 11/02/24 07:55 Temperature 97.9 F 11/02/24 13:29 Pulse Rate 72 11/02/24 17:45 Respiratory Rate 16 11/02/24 13:29 Blood Pressure 118/71 11/02/24 17:45 Pulse Oximetry 100 11/02/24 13:29 Oxygen Delivery Room Air 11/02/24 07:55 Lab Data Lab results reviewed: Yes I reviewed the patient's lab results. 11/02/24 08:36 11/02/24 08:36 Labs: Lab Results 11/02/24 Range/Units 08:36 WBC 7.6 (4.5-10.0) K/mm3 RBC 4.10 L (4.6-6.20) M/mm3 Hgb 12.1 L D (14.0-18.0) g/dL Hct 40.6 L (42.0-52.0) % MCV 99.0 (80-100) fl MCH 29.5 (26-34) pg MCHC 29.8 L (32-36) g/dl RDW 15.0 H (11.5-14.5) % Plt Count 202 (150-375) k/mm3 MPV 9.2 (7.4-10.4) fl Immature Gran % (Auto) 0.7 H (0-0.5) % Neut % (Auto) 57.0 (45.5-73.1) % Lymph % (Auto) 31.2 (18.3-44.2) % [place] % (Auto) 7.8 (2.6-8.5) % Eos % (Auto) 2.2 (0-4.4) % Baso % (Auto) 1.1 (0.2-1.2) % Lymph # (Auto) 2.36 (0.9-3.2) K/mm3 [place] # (Auto) 0.6 (0.1-0.6) K/mm3 Eos # (Auto) 0.2 (0-0.3) K/mm3 Baso # (Auto) 0.1 (0.0-0.1) K/mm3 Abs Immat Gran (auto) 0.05 H (0.00-0.031) K/mm3 Absolute Neuts (auto) 4.3 (1.3-6.7) K/mm3 Absolute Nucleated RBC 0.000 (0.0-0.012) K/mm3 Band Neutrophils % Not Reportable Nucleated RBC % 0.0 (0.0-0.2) % Atypical Lymphocytes Present Platelet Estimate Adequate (Adequate) Hypochromasia 1+ Schistocytes None seen PT 13.8 (11.1-14.7) Seconds INR 1.1 APTT 63.3 H (22.3-36.8) Seconds Sodium 137 (137-145) mmol/L Potassium 5.0 (3.4-5.0) mmol/L Chloride 98 (98-107) mmol/L Carbon Dioxide 25 (22-30) mmol/L Anion Gap 14 H (4-12) mmol/L BUN 63 H D (9-20) mg/dL Creatinine 11.43 H (0.7-1.3) mg/dL Estim Creat Clear Calc 10 ml/min Estimated GFR 5 L (59 - ) Glucose 137 H (65-110) mg/dL Lactic Acid 1.5 (0.7-2.0) mmol/L Calcium 8.2 L (8.4-10.2) mg/dL Magnesium 2.6 H (1.6-2.3) mg/dL Total Bilirubin 0.7 (0.2-1.3) mg/dL AST 29 (17-59) U/L ALT 12 (6-50) U/L Alkaline Phosphatase 124 (38-126) U/L Total Protein 9.0 H (6.3-8.2) g/dL Albumin 4.5 (3.5-5.1) g/dL TSH (Reflex) 1.940 (0.465-4.68) uIU/mL Imaging Data Radiologist's impression: Impressions Chest X-Ray 11/02/24 08:57 IMPRESSION: 1. Mild streaky bibasilar atelectasis. No other acute cardiopulmonary disease. Discharge Plan Discharge Clinical Impression: Atrial bigeminy Patient Disposition: Still a Patient Condition: Serious
--- NOTE | 2024-11-02 08:19 | PC.NURSE ---
Vascular access called for IV and blood draw.
--- OUTSIDE RECORDS SUMMARY | 2024-11-02 08:31 | XMS_ITS | Clinical Summary ---
Author Organization [facility] Address [address] [place] [address] Care Team Providers Care Air Conditioning Equipment Mechanic Name Role Phone Gabriela Mchugh MD Primary Care Provider Source Comments [facility],non-owned Affiliates and Associated Physician Practices is amultiple site organization consisting of ambulatory clinics and hospital sitesin [place], [place], [place] and [place]. This disclosure is being madepursuant to the Care Everywhere program and may not contain all information available regarding this patient. Last updated 17.[facility] Allergies Active Allergy Reactions Criticality Noted Date Comments Ciprofloxacin Rash Medium 08/27/2019 Shellfish Allergy Vomiting 07/27/2021 Medications * Be aware that medications may not be up to date on this document. Alwaysverify current medications with the patient. acetaminophen (TYLENOL) 325 MG tablet Take 2 (two) tablets by mouth every 6 hours as needed 2 Active calcium acetate (PHOSLO) 667 MG capsule Take 3 (three) capsules by mouth Three times daily with meals and 2 with snacks 2 Active albuterol HFA (PROVENTIL; VENTOLIN; PROAIR) 108 (90 Base) MCG/ACT inhaler Inhale by mouth as needed Active aspirin (Aspirin) 81 MG chew tablet Take 1 (one) tablet by mouth once daily Active sildenafil (Viagra) 100 MG tablet once daily as needed Active loratadine (Claritin) 10 MG tablet Take 1 (one) tablet by mouth once daily 3 Active renal vitamin (Dialyvite) tablet Take 1 (one) tablet by mouth Active HYDROcodone-ac etaminophen ([place]) 5-325 MG tabletIndicati ons:ESRD (end stage renal disease) (HCC) Take 1 (one) tablet by mouth every 6 hours as needed for Pain 12 tablet 5 Active Additional Information Patient not taking.Reported on 09/11/2024 acetaminophen (Tylenol) 500 MG tablet Take 1 (one) tablet by mouth every 6 hours as needed for Fever or Pain Maximum allowable Acetaminophen amount = 4 Grams (4000 mg) / 24 hours. 5 Active HYDROcodone-ac etaminophen ([place]) 5-325 MG tabletIndicati ons:ESRD (end stage renal disease) (HCC) Take 1 (one) tablet by mouth every 6 hours as needed for Pain 12 tablet 5 Active Active Problems Problem Noted Date Diagnosed Date Pre-op evaluation 08/02/2024 ESRD (end stage renal disease) 07/27/2021 Encounters Date Type Department Care Team Description 09/11/2024 8:21 AM CDT - 09/11/2024 11:59 PM CDT Hospital Encounter [facility] V[facility] Services [address] [facility], [facility] [address] [place] [address] Prince Seay MD Glaser, Joshua Stuart, MD Discharge Disposition: Home or Self Care 08/28/2024 11:20 AM CDT Office Visit [facility] - Surgery [address] [facility], [address] [place] [address] Luis Enrique Prakash MD Postop check (Primary Dx) 08/28/2024 Travel 08/21/2024 Travel 08/07/2024 12:49 PM CDT Anesthesia Event [facility] - Perioperative Surgery [address] [place] [id number] Prince Pack, Joanna Trujillo, FOX FARMER-TYPEWRITER [employer] WINDER 08/07/2024 12:46 PM CDT - 08/07/2024 2:40 PM CDT Surgery [facility] - Perioperative Surgery [address] [place] [address] Luis Enrique Prakash MD RIGHT UPPER ARM ARTERIOVENOUS (AV) GRAFT 08/07/2024 11:36 AM CDT - 08/07/2024 4:03 PM CDT Hospital Encounter [facility] - Perioperative Surgery [address] [place] [address] Luis Enrique Prakash MD Surgery General Discharge Disposition: Home or Self Care 08/07/2024 Travel 08/02/2024 Travel 08/02/2024 Telephone [facility] - Surgery [address] [facility], [address] [place] [phone] Luis Enrique Prakash MD Follow-up from Last 3 Months Family History Medical History Relation Name Comments Diabetes - Type 2 Father Relation Name Status Comments Father Social History Tobacco Use Types Packs/Day Years Used Date Smoking Tobacco: Never Smokeless Tobacco: Never Tobacco Cessation:Counseling Given: No Alcohol Use Standard Drinks/Week Comments Not Currently 0 (1 standard drink = 0.6 oz pur e alcohol) AUDIT-C Answer Date Recorded Q1: How often do you have a drink containing alcohol? Monthly or less 06/20/2024 Q2: How many drinks containi ng alcohol do you have on a typical day when you are drinking? Patient does not drink Q3: How often do you have si x or more drinks on one occasion? Never 06/20/2024 Sex and Gender Information Value Date Recorded Sex Assigned at Not on file Legal Sex Male 3:24 PM CDT Gender Identity Not on file Sexual Orientation Not on file Last Filed Vital Signs Vital Sign Reading Time Taken Comments Blood Pressure 146/85 09/11/2024 10:45 AM CDT Pulse 75 09/11/2024 10:45 AM CDT Temperature 36.4 C (97.5 F) 09/11/2024 8:47 AM CDT Respiratory Rate 8 09/11/2024 10:45 AM CDT Oxygen Saturation 97% 09/11/2024 10:45 AM CDT Inhaled Oxygen Concentration - - Weight 141 kg (310 lb 13.6 oz) 09/11/2024 8:47 A M CDT Height 200.7 cm (6' 7) 09/11/2024 8:47 AM CDT Body Mass Index 35.02 09/11/2024 8:47 AM CDT Plan of Treatment Upcoming Encounters Date Type Department Care Team (Late st Contact Info) Description 12/20/2024 10:30 AM DISTRIBUTION CENTER ASSOCIATE Appointment [facility] [id number] [facility], [address] [place] [address] [place] [address] [facility] [address] [place] [address] [place] [address] [facility] [address] [place] [phone] Health Maintenance Due Date Last Done Comments COLOGUARD (AGES 45-75) - COLON CA SCREENING 1962 COLON MONITORING 1962 COLONOSCOPY - COLON CA SCREENING 1962 CT COLONOGRAPHY - COLON CA SCREENING 1962 Colorectal Cancer Screening 1962 FIT - COLON CA SCREENING 1962 FLEX SIG - COLON CA SCREENING 1962 LIPID TESTING 1962 HIV SCREENING 1977 HEPATITIS C SCREENING 06/17/1980 DTAP/TDAP/TD VACCINES (1 - Tdap) 1981 PNEUMOCOCCAL VACCINE 50+ (1 of 2 - PCV) 1981 HEPATITIS B VACCINE (1 of 3 - Risk Dialysis 4-dose series) 1982 ZOSTER VACCINE (1 of 2) 2012 DEPRESSION SCREENING 02/15/2024 MEDICARE AWV CALENDAR YEAR 2024 COVID-19 VACCINE (2 - season) 2024 05/05/2020 INFLUENZA VACCINE (#1) 2024 11/25/2020 SCREENING FOR DIABETES 06/21/2027 , 06/05/2024, 06/05/2024, Additional history exists Respiratory Syncytial Virus (RSV) Vaccine Pt: or over 60 yrs (1 - 1-dose 75+ series) 2037 HIB VACCINE Aged Out No longer eligi ble based on patient's age to complete this topic HPV VACCINE Aged Out No longer eligi ble based on patient's age to complete this topic MENINGOCOCCAL (Group B) VACCINE SHARED DECISION-MAKING Aged Out No longer eligible based on patient's age to complete this topic MENINGOCOCCAL GROUPS A/C/Y/W VACCINE Aged Out No longer eligible based on patient's age to complete this topic Medical Devices Implanted Type Area Non Profit Financial Controller Device Identifier Shelf Expiration Date Model / Serial / Lot Graft Vasc 4-7mm 45cm [employer] Tpr - [id number] Implanted:Qty: 1 on 06/05/2024 by Luis Enrique Prakash MD at [facility] Left: Arm [employer] 09/26/2026 [id number] / [id number] / Graft Vasc 4-7mm 45cm Grtx Std Tpr - [id number] Implanted:Qty: 1 on 08/07/2024 by Luis Enrique Prakash MD at [facility] Right: Arm [employer] 05/26/2029 [id number] / [id number] / [id number] Procedures Procedure Name Priority Date/Time Associated Diagnosis Comments CARDIAC RHYTHM STRIP ORDER 09/13/2024 2:22 PM CDT IR ANGIO AV SHUNT IMAGING Routine 09/11/2024 10:32 AM CDT ESRD (end stage renal disease) (HCC) IMAGING/RADIOLOGY/XR AY RESULTS ORDER 08/08/2024 5:28 PM CDT CO ARTERY-VEIN GRAFT,NONAUTOGENOUS 08/07/2024 12:42 PM CDT PERIPHERAL BLOCK Routine 08/07/2024 12:2 8 PM CDT BLOOD GAS+COOX+ELECTROLYTE S+METAB VENOUS Routine 08/07/2024 12:03 PM CDT BASIC METABOLIC PANEL (CALCIUM TOTAL) STAT 06/20/2024 10:23 AM CDT Pre-op exam from Last 3 Months or Most Recently Relevant to Health Maintenance Results * CARDIAC RHYTHM STRIP ORDER (09/13/2024 2:22 PM CDT) Narrative 09/13/2024 2:22 PM CDT Ordered by an unspecified provider. us Scanned Document CARDIAC SERVICES ORDERABLES Fin al Result * IR Angio Av Shunt Imaging (09/11/2024 10:32 AM CDT) Anatomical Region Laterality Modality Lower Extremity, Upper Extremity, Chest X-Ray Angiography Narrative 09/11/2024 10:58 AM CDT Luis Enrique Prakash MD 09/11/2024 11:01 AM [facility] [place] Himanshu Morfin Darryl 1960 DATE OF PROCEDURE: 09/11/2024 ORDERING PHYSICIAN: Olinda PROCEDURE: Right AV fistulogram with central venous angioplasty using IV conscious sedation. Removal tunneled hemodialysis catheter left IJ INDICATIONS FOR PROCEDURE: No longer using hemodialysis catheter DESCRIPTION OF PROCEDURE:The patient s right upper arm was prepped and draped in the normal sterile manner. Using local anesthesia the access was punctured with the needle directed towards the central circulation. A guidewire was advanced under fluoroscopy and a 5 [place]orese catheter placed. Digital subtraction images were obtained from the arterial anastomosis to the level of the SVC. Reflux examination showed a nicely patent arterial anastomosis. The graft vein anastomosis was patent but there was a near occlusion of the innominate vein at the juncture of the SVC. Large collaterals were noted. The 5 [place]se sheath was upsized to a 6 [place] sheath. A series of catheter wire manipulations were performed to get the wire central. Once this was accomplished a 9 mm x 4 cm balloon was dilated with fair radiographic result. A total of 35 cc of contrast and 13.0 mGy radiation were used for the procedure the balloon wire and sheath removed and direct digital pressure was used for hemostasis. Attention was then turned to the tunneled catheter. This was prepped and draped sterilely infiltrated with local anesthesia. A 2 mm incision was made at the exit site and the cuff was dissected from the surrounding tissue. Entire catheter was removed and discarded. Direct digital pressure was used for hemostasis. The patient tolerated procedure well and left the center in stable and satisfactory condition. 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 IMPRESSION: Successful central venous angioplasty using IV conscious sedation as described. Successful removal tunneled hemodialysis catheter right IJ. DICTATED BY: Luis Enrique Prakash M.D. DATE DICTATED: 09/11/2024 Interventional Post-Operative/Procedure Notes Surgeon: Olinda Pre Procedure Diagnosis: ESRD Post Procedure Diagnosis: ESRD Anesthesia: Local 1% lidocaine and IV sedation Disposition: OPS Status: Stable Drain or Pack: None Additional Information/Complications: None Estimated Blood Loss: Negligible Specimen: None us Luis Enrique Prakash MD IR ORDERABLES Final Re sult * IMAGING/RADIOLOGY/XRAY RESULTS ORDER (08/08/2024 5:28 PM CDT) Anatomical Region Laterality Modality Other Narrative 08/08/2024 5:28 PM CDT Ordered by an unspecified provider. us Scanned Document IMAGING Final Result * Peripheral Nerve Block (08/07/2024 12:28 PM CDT) Narrative Prince Pack, - 08/07/2024 12:28 PM CDT Prince Pack DO 08/07/2024 12:28 PM Peripheral Nerve Block Procedure: Peripheral Nerve Block Patient Location: Pre-op Preprocedure Section: Indications: at surgeon's request and postop pain management. Pre-anesthetic Checklist: Patient identified, IV Checked, Site examined and clear, Risks and benefits discussed, Surgical consent verified, Monitors and equipment, Time-out performed, Informed consent obtained, Pre-op evaluation done, Questions answered/anesthesia questions answered, Allergies reviewed and Removal hand/wrist jewelry Monitors: BP and Pulse Ox. Patient Condition: sedated, meaningful contact maintained throughout procedure Patient Position: supine Patient Sedated? Yes Sedation Type: mild Sedation Agents: midazolam (VERSED) injection - Intravenous 2 mg - 08/07/2024 12:28:00 PM Procedure Section Laterality: right Block Performed: supraclavicular Prep: Chloraprep Strerile Field: gloves and hat/cap Needle Type: Echogenic insultaed Needle Gauge: 22 Needle Length: 80 mm Catheter? No Ultrasound Guided? Yes Technique: in plane Visualization: Preliminary scan performed, Important anatomical structures identified, Needle tip visualized throughout the procedure, Target identified, No intraneural or intravascular puncture occurred, Ultrasound image in chart, Local visualized surrounding nerve on ultrasound and Hydrodissection utilized Injection was made incrementally with constant monitoring and aspirations every 5 mL's Block Agents or Additives used? Yes Block agents used: bupivacaine 0.5% - EPINEPHrine 1:200,000 (PF) injection - Infiltration 20 mL - 08/07/2024 12:28:00 PM Procedure Tolerance: tolerated well Staff Section Anesthesia Provider: Prince Pack DO, Performed the procedure Prince Pack DO GENERAL ANESTHESIA ORDERABLES F inal Result * (ABNORMAL) BLOOD GAS+COOX+ELECTROLYTES+METAB VENOUS (08/07/2024 12:03 PM CDT) pH Venous 7.40 7.32 - 7.42 pH 08/07/2024 12:03 PM CDT [facility] pO2 Venous 38 35 - 40 mmHg 08/07/2024 12:03 PM CDT [facility] pCO2 Venous 46 40 - 50 mmHg 08/07/2024 12:03 PM CDT [facility] HCO3 Venous 28.5(H) 24 - 26 mmol/L 08/07/2024 12:03 PM CDT [facility] Base Excess Venous 3.1(H) -2.0 - 2.0 mmol/L 08/07/2024 12:03 PM CDT [facility] Oxyhemoglobin Venous 64.3 % 07/16 12:03 PM CDT [facility] Deoxyhemoglobin (HHB) Venous % 34.9 % 08/07/2024 12:03 PM CDT [facility] Methemoglobin <0.8 0.0 - 2.0 % 08/07/2024 12:03 PM CDT [facility] Carboxyhemoglobin 0.8 0.0 - 2.0 % 08/07/2024 12:03 PM CDT [facility] O2 Content Venous 10.8 ml/dL 025 12: PM CDT [facility] Hemoglobin by COOX 11.9(L) 12.0 - 17.6 g/dL 08/07/2024 12:03 PM CDT [facility] O2 Saturation Venous 65(L) >=70 % 07/16 12:03 PM CDT [facility] Sodium Whole Blood 135 135 - 145 mmol/L 08/07/2024 12:03 PM CDT [facility] Potassium Whole Blood 5.4 3.5 - 5.5 mmol/L 08/07/2024 12:03 PM CDT [facility] Chloride WB 100(L) 101 - 111 mmol/L 08/07/2024 12:03 PM CDT [facility] Calcium Ionized 0.94 mmol/L 12:03 PM CDT [facility] Ionized Calcium pH Adjusted 0.94(L) 1.19 - 1.34 mmol/L 08/07/2024 12:03 PM CDT [facility] Anion Gap (AG) Arterial 12 8 - 18 mmol/L 08/07/2024 12:03 PM CDT [facility] Glucose WB 124(H) 70 - 99 mg/dL 08/07/2024 12:03 PM CDT [facility] Lactic Acid Whole Blood 1.9 <=2.0 mmol/L 08/07/2024 12:03 PM CDT [facility] Blood BLOOD SPECIMEN / Unknown 08/07/2024 12:03 PM CDT 08/07/2024 12:04 PM CDT Narrative [facility] - 08/07/2024 12:03 PM CDT Test performed by a Licensed Healthcare Provider us Luis Enrique Prakash MD LAB - BLOOD GASES ORDERA BLES Final Result [facility] [address] [phone] * (ABNORMAL) BASIC METABOLIC PANEL (CALCIUM TOTAL) (06/20/2024 10:23 AM CDT) Glucose 121(H) 70 - 99 mg/dL 06/20/2024 10:50 AM CDT [facility] Sodium 142 136 - 145 mmol/L 06/20/2024 10:50 AM CDT [facility] Potassium 4.7 3.5 - 5.1 mmol/L 06/20/2024 10:50 AM CDT [facility] Chloride 103 98 - 107 mmol/L 06/20/2024 10:50 AM CDT [facility] CO2 21(L) 22 - 29 mmol/L 06/20/2024 10:50 AM CDT [facility] Calcium 8.5 8.4 - 10.4 mg/dL 06/20/2024 10:50 AM CDT [facility] Anion Gap 18(H) 6 - 16 mmol/L 06/20/2024 10:50 AM CDT [facility] BUN 66(H) 7 - 26 mg/dL 06/20/2024 10:50 AM CDT [facility] Creatinine 12.74(H) 0.72 - 1.25 mg/dL 06/20/2024 10:50 AM CDT [facility] eGFR by CKD-EPI 4(L) >=90 mL/min/1.7 3 m2 06/20/2024 10:50 AM CDT [facility] Blood BLOOD SPECIMEN / Unknown Venipuncture / Unknown 06/20/2024 10:23 AM CDT 06/20/2024 10:33 AM CDT us Yi Eddy DO LAB - CHEMISTRY ORDERABLES Perla medellin Result Performing Organization Address City/State/[facility] Co de Phone Number [facility] [address] [place] [address] from Last 3 Months or Most Recently Relevant to Health Maintenance Insurance MEDICAID [place] HUMANA MEDICARE ADV HMO & PPO [facility] [address] Care Teams Air Conditioning Equipment Mechanic Relationship Specialty Start Date End Date Gabriela Mchugh MD [address] [place] [phone] PCP - General Internal Medicine 07/27/21
[2024-11-02 08:42] LABS: Hematocrit 40.6 % (42.0-52.0); Hemoglobin 12.1 g/dL (14.0-18.0); Immature Granulocyte Percent A 0.7 % (0-0.5); Lymphocytes Absolute Auto 2.36 K/mm3 (0.9-3.2); Mean Corpuscular HGB Conc 29.8 g/dl (32-36); Mean Corpuscular Hemoglobin 29.5 pg (26-34); Mean Corpuscular Volume 99.0 fl (80-100); Nucleated Red Blood Cells Absolute Auto 0.000 K/mm3 (0.0-0.012); Nucleated Red Blood Cells Perc 0.0 % (0.0-0.2); Platelet Count Result 202 k/mm3 (150-375); Red Blood Count 4.10 M/mm3 (4.6-6.20); White Blood Count 7.6 K/mm3 (4.5-10.0)
[2024-11-02 08:54] LABS: Alanine Aminotransferase 12 U/L (6-50); Albumin Level 4.5 g/dL (3.5-5.1); Alkaline Phosphatase 124 U/L (38-126); Anion Gap 14 mmol/L (4-12); Aspartate Amino Transferase 29 U/L (17-59); Bilirubin,Total 0.7 mg/dL (0.2-1.3); Blood Urea Nitrogen 63 mg/dL (9-20); Calcium 8.2 mg/dL (8.4-10.2); Carbon Dioxide 25 mmol/L (22-30); Chloride 98 mmol/L (98-107); Estimated CRCL calculation 10 ml/min; Estimated Glomerular Filt Rate 5; Glucose 137 mg/dL (65-110); Magnesium 2.6 mg/dL (1.6-2.3); Potassium 5.0 mmol/L (3.4-5.0); Sodium 137 mmol/L (137-145); Total Protein 9.0 g/dL (6.3-8.2)
--- NOTE | 2024-11-02 08:58 | ECG_ITS ---
Test Date: 2024-11-02 09:07:53 Measurements Intervals [place] Rate: 58 P: 0 OR: 0 QRS: -28 QRSD: 89 T: 34 QT: 539 QTc: 530 Interpretive Statements SINUS BRADYCARDIA WITH 2ND DEGREE AV BLOCK, MOBITZ TYPE II BORDERLINE LEFT AXIS DEVIATION [QRS AXIS < -20] PROLONGED QT INTERVAL ABNORMAL ECG Electronically Signed On 11-02-2024 13:03:50 CDT by Michael Johns M.D.
[2024-11-02 09:01] LABS: Hypochromasia 1+; Schistocytes None Seen
[2024-11-02 09:28] LABS: Thyroid Stimulating Hormone Reflex 1.940 uIU/mL (0.465-4.68)
[2024-11-02 09:31] LABS: INR 1.1; Prothrombin Time 13.8 Seconds (11.1-14.7)
[2024-11-02 09:33] LABS: Partial Thromboplastin Time 63.3 Seconds (22.3-36.8)
[2024-11-02 12:30] LABS: Hepatitis B Surface Antigen Negative (Negative)
[2024-11-02 12:56] LABS: Hepatitis B Surface Anti Res Positive
[2024-11-02] MEDS: LIDOCAINE/PRILOCAINE CREAM 2.5-2.5% TUBE 1 EACH TOPICAL (13:18)
[2024-11-02] MEDS: SODIUM CHLORIDE 0.9% IV 1,000 ML 999 ML IV CONT (13:18)
--- NOTE | 2024-11-02 13:20 | PC.NURSE ---
Lidocaine cream placed over dialysis access point. Patient signed Dialysis consent form with RN. amusement centre manager called for report. Patient heading to Dialysis unit now and then to IMU.
--- NOTE | 2024-11-02 14:21 | PM.IMHP ---
H&P: HPI History of Present Illness Date/Time: 11/02/24 14:21 Chief Complaint: Palpitation Narrative: This is a 64-year-old male who presented from dialysis center where he was noted to have low heart rate. He states he might have felt a little lightheaded. Otherwise he felt normal. Due to concern with low heart rate which was down in 30s he was sent to the ED for evaluation. In the ED his vitals were stable however for telemetry was showing atrial bigeminy with normal sinus rhythm. No acute ST-T changes were noted. Laboratory evaluation showed WBC of 7.6 hemoglobin of 12.1 platelet count of 202. Chem panel showed sodium 137 potassium 5.0 chloride 98 bicarbonate 25 BUN 63 creatinine 11.43. Lactate was normal at 1.5 glucose 137. Calcium 8.2 magnesium 2.6. LFTs were normal. TSH was 1.9 normal. Chest x-ray with mild streaky bibasilar atelectasis with no acute cardiopulmonary disease. EKG showed sinus bradycardia with premature atrial contractions with prolonged QT interval. He was admitted in this setting for further treatment. Review of Systems Review of Systems: - CONSTITUTIONAL: Denies weight loss, fever and chills. - HEENT: Denies changes in vision and hearing - RESPIRATORY: Denies SOB and cough. - CV: Denies palpitations and CP. - GI: Denies abdominal pain, nausea, vomiting and diarrhea. - : Denies dysuria and urinary frequency. - MSK: Denies myalgia and joint pain. - SKIN: Denies rash and pruritus. - NEUROLOGICAL: Denies headache and syncope. - PSYCHIATRIC: Denies recent changes in mood. Denies anxiety and depression. [facility] Past Medical History Medical History (Updated 11/02/24 @ 15:18 by Jes Roman APRN) Diabetes Anemia End stage renal disease Hypertension Asthma End-stage renal disease on peritoneal dialysis Insulin dependent type 2 diabetes mellitus Hypertension Peritonitis, dialysis-associated Surgical History Surgical History History of umbilical hernia repair Amputation toe Presence of peritoneal dialysis catheter Family History Family History Father Diabetes mellitus Mother Diabetes mellitus Social History Social History (Reviewed 05/13/21 @ 10:24 by FAMILIA Guillaume Social History: Surrogate decision maker: Corry Andrews (mother) or Ana Andrews (sister). Code status: Full code. Smoking status: Never smoker Second hand tobacco smoke exposure: No Alcohol intake: never Substance use: never Substance use type: does not use Additional living arrangements comments: Lives in [place] with his significant other of many years. He has 3 grown children. Additional occupation/education comments: Disabled. Spiritual care concerns: No Meds Home Medications and Allergies Home Medications ?Medication ?Instructions ?Recorded ?Confirmed ?Type albuterol sulfate 90 mcg/actuation 2 puff inhalation BID PRN Adequate 05/03/21 05/03/21 History aerosol inhaler Ventilation calcium acetate(phosphat bind) 667 2,001 mg PO TIDWMEAL 05/03/21 11/02/24 History mg capsule clonidine HCl 0.2 mg tablet 0.2 mg PO BID PRN Hypertension 05/03/21 05/03/21 History fluoxetine 20 mg capsule 20 mg PO DAILY 05/03/21 05/03/21 History insulin lispro protamine-lispro 10 unit subcut BID 05/03/21 05/03/21 History 100 unit/mL (75-25) subcutaneous susp (Humalog Mix 75-25(U-100)Insuln) nifedipine 60 mg tablet,extended 90 mg PO DAILY 05/03/21 05/03/21 History release potassium chloride 10 mEq 20 meq PO DAILY 05/03/21 05/03/21 History tablet,extended release vitamin B complex-vitamin C-folic 1 tablet PO DAILY 05/03/21 05/03/21 History acid 0.8 mg tablet (Christiana-Mirta) Allergies Allergy/AdvReac Type Severity Reaction Status Date / Time No Known Allergies Allergy Mild Unverified 06/14/08 16:10 Vital Signs Vital Signs - 24 hr 11/02/24 07:55 11/02/24 08:07 11/02/24 08:08 Temperature 97.7 F Pulse Rate 60 99 68 Respiratory Rate 12 19 14 Blood Pressure 147/65 H 147/65 H Pulse Oximetry 96 100 100 Oxygen Delivery Room Air 11/02/24 08:15 11/02/24 08:30 11/02/24 08:54 Temperature Pulse Rate 119 H 118 H 62 Respiratory Rate 11 L 14 12 Blood Pressure Pulse Oximetry Oxygen Delivery 11/02/24 09:00 11/02/24 09:15 11/02/24 09:30 Temperature Pulse Rate 58 L 75 84 Respiratory Rate 10 L 17 12 Blood Pressure Pulse Oximetry Oxygen Delivery 11/02/24 09:45 11/02/24 10:00 11/02/24 10:04 Temperature Pulse Rate 107 H 107 H 85 Respiratory Rate 16 15 14 Blood Pressure 148/76 H Pulse Oximetry Oxygen Delivery 11/02/24 10:10 11/02/24 10:15 11/02/24 10:30 Temperature Pulse Rate 99 108 H 95 Respiratory Rate 12 10 L 12 Blood Pressure 148/76 H Pulse Oximetry 98 78 L Oxygen Delivery 11/02/24 10:45 11/02/24 11:00 11/02/24 11:02 Temperature Pulse Rate 89 87 114 H Respiratory Rate 21 H 11 L 14 Blood Pressure 155/83 H Pulse Oximetry 70 L Oxygen Delivery 11/02/24 11:15 11/02/24 11:30 11/02/24 11:45 Temperature Pulse Rate 60 112 H 78 Respiratory Rate 13 15 18 Blood Pressure Pulse Oximetry 69 L 74 L Oxygen Delivery 11/02/24 12:00 11/02/24 12:02 11/02/24 12:15 Temperature Pulse Rate 107 H 91 112 H Respiratory Rate 13 13 13 Blood Pressure 150/83 H Pulse Oximetry 99 Oxygen Delivery 11/02/24 13:29 11/02/24 13:59 11/02/24 14:15 Temperature 97.9 F Pulse Rate 64 56 L 61 Respiratory Rate 16 Blood Pressure 131/77 108/72 126/69 Pulse Oximetry 100 Oxygen Delivery Exam Narrative: GENERAL: The patient is well developed, not in acute distress HEENT: Nonicteric sclerae, PERRLA, EOMI. Oropharynx clear. Moist mucous membranes. Conjunctivae appear well perfused. CHEST: Chest wall is nontender. HEART: Regular rate and rhythm without murmur, rubs, or gallops LUNGS: Clear to auscultation bilaterally. no respiratory distress ABDOMEN: Soft, positive bowel sounds, non-tender, no organomegaly. SKIN: No rash, no excessive bruising, petechiae, or purpura. NEUROLOGIC: Cranial nerves II-XII intact, alert and oriented x 3, no gross motor deficits EXTREMITIES: no edema, cyanosis or clubbing H&P: Results Labs Labs: Short CBC 11/02/24 Range/Units 08:36 WBC 7.6 (4.5-10.0) K/mm3 Hgb 12.1 L D (14.0-18.0) g/dL Hct 40.6 L (42.0-52.0) % Plt Count 202 (150-375) k/mm3 BMP 11/02/24 08:36 Sodium 137 Potassium 5.0 Chloride 98 Carbon Dioxide 25 BUN 63 H D Creatinine 11.43 H Glucose 137 H Calcium 8.2 L Liver Function 11/02/24 Range/Units 08:36 Total Bilirubin 0.7 (0.2-1.3) mg/dL AST 29 (17-59) U/L ALT 12 (6-50) U/L Alkaline Phosphatase 124 (38-126) U/L Albumin 4.5 (3.5-5.1) g/dL Assessment and Plan Assessment and plan (1) Hypertension: Qualifiers: Hypertension type: primary hypertension Qualified Code(s): I10 - Essential (primary) hypertension Code(s): I10 - Essential (primary) hypertension Status: Chronic (2) Abnormal electrocardiogram [ECG] [EKG]: Code(s): R94.31 - Abnormal electrocardiogram [ECG] [EKG] Status: Acute (3) Insulin dependent type 2 diabetes mellitus: Code(s): E11.9 - Type 2 diabetes mellitus without complications; Z79.4 - oysterman (current) use of insulin Status: Acute (4) End stage renal disease: Code(s): N18.6 - End stage renal disease Status: Chronic Plan This is a 64-year-old male who presented from dialysis center where he was noted to have low heart rate. He states he might have felt a little lightheaded. Otherwise he felt normal. Due to concern with low heart rate which was down in 30s he was sent to the ED for evaluation. In the ED his vitals were stable however for telemetry was showing atrial bigeminy with normal sinus rhythm. No acute ST-T changes were noted. Laboratory evaluation showed WBC of 7.6 hemoglobin of 12.1 platelet count of 202. Chem panel showed sodium 137 potassium 5.0 chloride 98 bicarbonate 25 BUN 63 creatinine 11.43. Lactate was normal at 1.5 glucose 137. Calcium 8.2 magnesium 2.6. LFTs were normal. TSH was 1.9 normal. Chest x-ray with mild streaky bibasilar atelectasis with no acute cardiopulmonary disease. EKG showed sinus bradycardia with premature atrial contractions with prolonged QT interval. He was admitted in this setting for further treatment. Atrial bigeminy asymptomatic. Continue to monitor cardiology consultation Hypertension blood pressure reasonably controlled continue home medication Type 2 diabetes End-stage renal disease on hemodialysis nephrology consulted for inpatient hemodialysis DVT prophylaxis heparin subQ Code status full code Hospitalist MIPS Advance Care Plan I have confirmed that the patient's Advanced Care Plan is present, code status is documented, or surrogate decision maker is listed in patient medical record.: Yes Medication Reconciliation I have utilized all available resources to obtain, update and review the patients current medications (includes all prescriptions, OTC, herbals, cannabis, and nutritional supplements).: Yes
--- NOTE | 2024-11-02 14:53 | P.PNNP_ITS ---
Progress Note: A&P Assessment and Plan (1) End stage renal disease: Code(s): N18.6 - End stage renal disease Status: Chronic Assessment and Plan: * HD today * continue Tue/Tue/Tuesday dialysis schedule while hospitalized * follow electrolytes, volume status, and clearance * outpatient dialysis unit = [facility] * primary senior manager creative services = Dr. Bianchi FULL CONSULT TO FOLLOW... Subjective Date/time seen: 11/02/24 14:53 Interval history: Following for end stage renal disease on hemodialysis. Tolerating dialysis treatment at the time of my visit (seen on HD at 2:40pm); no apparent distress noted; feels reasonably well when seen; no acute complaints voiced. Exam Narrative: General: WD/WN male in NAD Heart: normal S1 and S2; no rub Lungs: clear anteriorly Abdomen: soft, nontender, no distension, positive bowel sounds Extremities: no cyanosis or clubbing; trace edema Skin: warm and dry Objective Data Vital Signs Vital Signs: Vital Signs Temp Pulse Resp BP Pulse Ox O2 Del Method 11/02/24 14:45 71 118/77 11/02/24 14:30 55 L 119/72 11/02/24 14:15 61 126/69 11/02/24 13:59 56 L 108/72 11/02/24 13:29 97.9 F 64 16 131/77 100 11/02/24 12:15 112 H 13 11/02/24 12:02 91 13 150/83 H 11/02/24 12:00 107 H 13 99 11/02/24 11:45 78 18 11/02/24 11:30 112 H 15 74 L 11/02/24 11:15 60 13 69 L 11/02/24 11:02 114 H 14 155/83 H 70 L 11/02/24 11:00 87 11 L 11/02/24 10:45 89 21 H 11/02/24 10:30 95 12 78 L 11/02/24 10:15 108 H 10 L 11/02/24 10:10 99 12 148/76 H 98 11/02/24 10:04 85 14 148/76 H 11/02/24 10:00 107 H 15 11/02/24 09:45 107 H 16 11/02/24 09:30 84 12 11/02/24 09:15 75 17 11/02/24 09:00 58 L 10 L 11/02/24 08:54 62 12 11/02/24 08:30 118 H 14 11/02/24 08:15 119 H 11 L 11/02/24 08:08 68 14 100 11/02/24 08:07 99 19 147/65 H 100 11/02/24 07:55 97.7 F 60 12 147/65 H 96 Room Air Meds/Results Medications: Active Medications Generic Name Dose Route Start Last Admin Trade Name Freq PRN Reason Stop Dose Admin Albumin Human 50 mls @ 999 mls/hr 11/02/24 11:14 Albutein IVPB 11/03/24 11:13 Q10M PRN HYPOTENSION Lidocaine/Prilocaine 1 each 11/02/24 11:18 11/02/24 13:18 Lidocaine/Prilocaine Cream 2.5-2.5% Tube TOPICAL 1 each WITH DIALYSIS PRN Administration for dialysis Protocol Radiology Results: ITS Impressions Chest X-Ray 11/02/24 08:57 IMPRESSION: 1. Mild streaky bibasilar atelectasis. No other acute cardiopulmonary disease. Labs Labs: Laboratory Results 11/02/24 08:36 WBC 7.6 Hgb 12.1 L Hct 40.6 L Plt Count 202 PT 13.8 INR 1.1 Sodium 137 Potassium 5.0 Chloride 98 Carbon Dioxide 25 Anion Gap 14 H BUN 63 H D Creatinine 11.43 H Estim Creat Clear Calc 10 Estimated GFR 5 L Glucose 137 H Lactic Acid 1.5 Calcium 8.2 L Magnesium 2.6 H Total Bilirubin 0.7 AST 29 ALT 12 Alkaline Phosphatase 124 Total Protein 9.0 H Albumin 4.5 TSH (Reflex) 1.940
--- NOTE | 2024-11-02 15:12 | CONS_ITS ---
Report recreated on 11/14/24. Original report was signed by Jes Roman APRN on 11/02/24 at 1524. Assessment and Plan Assessment and plan (1) Abnormal electrocardiogram [ECG] [EKG]: Code(s): R94.31 - Abnormal electrocardiogram [ECG] [EKG] Status: Acute Assessment and Plan: Patient had reported bradycardia at HD this am with HR in the 30s On arrival his EKG demonstrates a NSR with atrial bigeminy No acute ST/T wave changes Patient is asymptomatic No further cardiac w/u at this time (2) Hypertension: Qualifiers: Hypertension type: primary hypertension Qualified Code(s): I10 - Essential (primary) hypertension Code(s): I10 - Essential (primary) hypertension Status: Chronic Assessment and Plan: Blood pressure with reasonable control Continue his home dose of nifedipine 90 mg daily (3) Diabetes: Code(s): E11.9 - Type 2 diabetes mellitus without complications Status: Chronic Assessment and Plan: Glycemic control per primary team (4) End stage renal disease: Code(s): N18.6 - End stage renal disease Status: Chronic Assessment and Plan: On HD per renal management Plan At this time EKG reviewed and demonstrated atrial bigeminy patient asymptomatic, can continue telemetry monitoring No further cardiac w/u at this time. Can follow up on an OP basis. History of Present Illness History of Present Illness Consult date/time: 11/02/24 15:12 Requesting physician: Chriss Sanchez MD Consult reason: Other (abnormal EKG ) Reason For Visit: missed dialysis,arrhythmia Narrative: Himanshu Andrews is a 64 y.o. AA male with a PMH of HTN, HLD, DM, ESRD and obesity who presented to the ER from his dialysis center with reports of bradycardia. According to the patient he was at dialysis and had not started his treatment yet. He felt slightly light headed but overall well. He denies any chest pain,shortness of breath, palpitations, nausea or vomiting. Denies any previous cardiac history. He states when they checked his vitals his HR was low in the 30s. He states they sent him to the ER for further evaluation. Review of Systems 2 Review of Systems: All systems reviewed & are unremarkable except as noted in HPI and below (HPI ) [facility] Past Medical History Medical History (Updated 11/02/24 @ 15:18 by Jes Roman APRN) Diabetes Anemia End stage renal disease Hypertension Asthma End-stage renal disease on peritoneal dialysis Insulin dependent type 2 diabetes mellitus Hypertension Peritonitis, dialysis-associated Surgical History Surgical History History of umbilical hernia repair Amputation toe Presence of peritoneal dialysis catheter Family History Family History Father Diabetes mellitus Mother Diabetes mellitus Social History Social History Social History: Surrogate decision maker: Corry Darryl (mother) or Ana Andrews (sister). Code status: Full code. Smoking status: Never smoker Second hand tobacco smoke exposure: No Alcohol intake: never Substance use: never Substance use type: does not use Additional living arrangements comments: Lives in [place] with his significant other of many years. He has 3 grown children. Additional occupation/education comments: Disabled. Spiritual care concerns: No Meds Home Medications and Allergies Home Medications ?Medication ?Instructions ?Recorded ?Confirmed ?Type albuterol sulfate 90 mcg/actuation 2 puff inhalation BID PRN Adequate 05/0305/03/21 History aerosol inhaler Ventilation calcium acetate(phosphat bind) 667 2,001 mg PO TIDWMEAL 05/03/21 11/02/24 History mg capsule clonidine HCl 0.2 mg tablet 0.2 mg PO BID PRN Hypertension 05/03/21 05/03/21 History fluoxetine 20 mg capsule 20 mg PO DAILY 05/03/21 05/03/21 History insulin lispro protamine-lispro 10 unit subcut BID 05/03/21 05/03/21 His tory 100 unit/mL (75-25) subcutaneous susp (Humalog Mix 75-25(U-100)Insuln) nifedipine 60 mg tablet,extended 90 mg PO DAILY 05/03/21 05/03/21 History release potassium chloride 10 mEq 20 meq PO DAILY 05/03/21 05/03/21 Histor y tablet,extended release vitamin B complex-vitamin C-folic 1 tablet PO DAILY 05/03/21 05/03/21 Hist ory acid 0.8 mg tablet (Christiana-Mirta) Allergies Allergy/AdvReac Type Severity Reaction Status Date / Time No Known Allergies Allergy Mild Unverified 06/14/08 16:10 Vital Signs Vital Signs - 24 hr 11/02/24 07:55 11/02/24 08:07 11/02/24 08:08 Temperature 36.5 C Pulse Rate 60 99 68 Respiratory Rate 12 19 14 Blood Pressure 147/65 H 147/65 H Pulse Oximetry 96 100 100 Oxygen Delivery Room Air 11/02/24 08:15 11/02/24 08:30 11/02/24 08:54 Temperature Pulse Rate 119 H 118 H 62 Respiratory Rate 11 L 14 12 Blood Pressure Pulse Oximetry Oxygen Delivery 11/02/24 09:00 11/02/24 09:15 11/02/24 09:30 Temperature Pulse Rate 58 L 75 84 Respiratory Rate 10 L 17 12 Blood Pressure Pulse Oximetry Oxygen Delivery 11/02/24 09:45 11/02/24 10:00 11/02/24 10:04 Temperature Pulse Rate 107 H 107 H 85 Respiratory Rate 16 15 14 Blood Pressure 148/76 H Pulse Oximetry Oxygen Delivery 11/02/24 10:10 11/02/24 10:15 11/02/24 10:30 Temperature Pulse Rate 99 108 H 95 Respiratory Rate 12 10 L 12 Blood Pressure 148/76 H Pulse Oximetry 98 78 L Oxygen Delivery 11/02/24 10:45 11/02/24 11:00 11/02/24 11:02 Temperature Pulse Rate 89 87 114 H Respiratory Rate 21 H 11 L 14 Blood Pressure 155/83 H Pulse Oximetry 70 L Oxygen Delivery 11/02/24 11:15 11/02/24 11:30 11/02/24 11:45 Temperature Pulse Rate 60 112 H 78 Respiratory Rate 13 15 18 Blood Pressure Pulse Oximetry 69 L 74 L Oxygen Delivery 11/02/24 12:00 11/02/24 12:02 11/02/24 12:15 Temperature Pulse Rate 107 H 91 112 H Respiratory Rate 13 13 13 Blood Pressure 150/83 H Pulse Oximetry 99 Oxygen Delivery 11/02/24 13:29 11/02/24 13:59 11/02/24 14:15 Temperature 36.6 C Pulse Rate 64 56 L 61 Respiratory Rate 16 Blood Pressure 131/77 108/72 126/69 Pulse Oximetry 100 Oxygen Delivery 11/02/24 14:30 11/02/24 14:45 Temperature Pulse Rate 55 L 71 Respiratory Rate Blood Pressure 119/72 118/77 Pulse Oximetry Oxygen Delivery Exam 2 Const: General: comfortable and no acute distress Neck: Neck: supple and no JVD Other: no carotid bruit Resp: Effort & Inspection: normal respiratory effort Auscultation: clear to auscultation bilaterally Cardio: Rate: regular rate Rhythm: regular rhythm Skin: General skin exam: normal color Extrem: General: normal to inspection Psych: Mental Status: mental status grossly normal Results Labs and Meds 11/02/24 08:36 11/02/24 08:36 Lab results: Cardiac Enzymes 11/02/24 Range/Units 08:36 AST 29 (17-59) U/L Coagulation 11/02/24 Range/Units 08:36 PT 13.8 (11.1-14.7) Seconds APTT 63.3 H (22.3-36.8) Seconds CBC 11/02/24 Range/Units 08:36 WBC 7.6 (4.5-10.0) K/mm3 RBC 4.10 L (4.6-6.20) M/mm3 Hgb 12.1 L D (14.0-18.0) g/dL Hct 40.6 L (42.0-52.0) % Plt Count 202 (150-375) k/mm3 Lymph # (Auto) 2.36 (0.9-3.2) K/mm3 [place] # (Auto) 0.6 (0.1-0.6) K/mm3 Eos # (Auto) 0.2 (0-0.3) K/mm3 Baso # (Auto) 0.1 (0.0-0.1) K/mm3 Comprehensive Metabolic Panel 11/02/24 Range/Units 08:36 Sodium 137 (137-145) mmol/L Potassium 5.0 (3.4-5.0) mmol/L Chloride 98 (98-107) mmol/L Carbon Dioxide 25 (22-30) mmol/L BUN 63 H D (9-20) mg/dL Creatinine 11.43 H (0.7-1.3) mg/dL Glucose 137 H (65-110) mg/dL Calcium 8.2 L (8.4-10.2) mg/dL AST 29 (17-59) U/L ALT 12 (6-50) U/L Alkaline Phosphatase 124 (38-126) U/L Total Protein 9.0 H (6.3-8.2) g/dL Albumin 4.5 (3.5-5.1) g/dL Patient Weight 11/02/24 23:59 Weight 143.2 kg EKG Interpretation EKG: sinus rhythm (with PACs QTC of 436. No acute ST/T wave changes. ) Please be advised this is a medical document. It is intended for [id number] communication. It is written in medical language and may contain unfamiliar abbreviations or verbiage. Medical documents are intended to carry relevant information, facts as evident, and the clinical opinion of the practitioner at the time of the encounter. This report may have been done utilizing a voice recognition system. Attempts have been made to correct errors. However, there may be uncorrected grammatical, spelling, and recognition errors present. The file time of this note does not necessarily represent the time the patient was seen. Report Initialized date/time: [id number] 11/02/24 / 1516 Electronically signed by: [id number] 11/02/24 1524 Ramon Estrada MD 11/03/24 0806
--- NOTE | 2024-11-02 15:53 | ADMGEN ---
This patient, Himanshu Andrews, was admitted to IMU Room 209-01. Patient/family oriented to hospital policies and general routines including ID bracelet, bed and alarms, visiting hours, pain management, procedures, bathroom and other care routines, personal items, smoking policy, room service/diet, and visiting hours. Information on how to activate the Rapid Response Team has been discussed. Patient/Family are encouraged to report perceived risks to care and to ask questions if they do not understand what they are told or what they should do.
--- NOTE | 2024-11-02 15:56 | PC.NURSE ---
pt wanting to change poc to sister estrella. unsure of estrella's phone reported would get it lizette.
[2024-11-03] VITALS (9 sets, daily range): BP systolic 112–121; BP diastolic 57–63; PULSE 53–80; RESP 14–18; TEMP 36.6–37.2; O2SAT 97–100
[2024-11-03 04:35] LABS: Hematocrit 37.1 % (42.0-52.0); Hemoglobin 10.9 g/dL (14.0-18.0); Immature Granulocyte Percent A 0.6 % (0-0.5); Lymphocytes Absolute Auto 2.38 K/mm3 (0.9-3.2); Mean Corpuscular HGB Conc 29.4 g/dl (32-36); Mean Corpuscular Hemoglobin 29.1 pg (26-34); Mean Corpuscular Volume 99.2 fl (80-100); Nucleated Red Blood Cells Absolute Auto 0.000 K/mm3 (0.0-0.012); Nucleated Red Blood Cells Perc 0.0 % (0.0-0.2); Platelet Count Result 176 k/mm3 (150-375); Red Blood Count 3.74 M/mm3 (4.6-6.20); White Blood Count 5.1 K/mm3 (4.5-10.0)
[2024-11-03 04:54] LABS: Albumin Level 3.9 g/dL (3.5-5.1); Anion Gap 9 mmol/L (4-12); Blood Urea Nitrogen 38 mg/dL (9-20); Calcium 8.4 mg/dL (8.4-10.2); Carbon Dioxide 30 mmol/L (22-30); Chloride 98 mmol/L (98-107); Estimated CRCL calculation 14 ml/min; Estimated Glomerular Filt Rate 7; Glucose 111 mg/dL (65-110); Potassium 4.2 mmol/L (3.4-5.0); Sodium 137 mmol/L (137-145)
--- NOTE | 2024-11-03 10:12 | P.PNCA_ITS ---
Progress Note: A&P Assessment and Plan (1) Atrial bigeminy: Code(s): I49.8 - Other specified cardiac arrhythmias Status: Acute Plan 64-year-old man with asymptomatic atrial ectopic activity. I do not believe this gentleman has second-degree heart block rather he has frequent premature atrial contractions some of which are nonconducted resulting in short compensatory pauses. This is asymptomatic. He does not have her remain hospitalized because of this. Ramon Estrada MD [facility] Subjective Date/time seen: Date of service: 11/03/24 10:12 Interval history: Follow-up visit this 64-year-old man with: Asymptomatic premature atrial contractions some of which are nonconducted resulting in short compensatory pauses. ECG was officially read as second- degree AV block which I disagree with. He feels well this morning and is reporting no symptoms. Hoping to be discharged. Exam Const: General: comfortable and no acute distress Other: Very pleasant tall gentleman no apparent distress of any kind HENMT: Mouth: Yes moist mucous membranes Eyes: Sclera: sclerae normal Neck: Neck: supple and no JVD Resp: Effort & Inspection: normal respiratory effort Auscultation: clear to auscultation bilaterally Cardio: Rate: regular rate Rhythm: regular rhythm Other: Occasional extrasystoles noted GI: GI Palp: Yes Soft to palpation Auscultation: normal bowel sounds Skin: General skin exam: normal color Neuro: Other: Alert and oriented x3 Extrem: General: normal to inspection Objective Data Vital Signs Vital Signs: Vital Signs - 24 hr 11/02/24 10:15 11/02/24 10:30 11/02/24 10:45 Temperature Pulse Rate 108 H 95 89 Respiratory Rate 10 L 12 21 H Blood Pressure Pulse Oximetry 78 L Oxygen Delivery 11/02/24 11:00 11/02/24 11:02 11/02/24 11:15 Temperature Pulse Rate 87 114 H 60 Respiratory Rate 11 L 14 13 Blood Pressure 155/83 H Pulse Oximetry 70 L 69 L Oxygen Delivery 11/02/24 11:30 11/02/24 11:45 11/02/24 12:00 Temperature Pulse Rate 112 H 78 107 H Respiratory Rate 15 18 13 Blood Pressure Pulse Oximetry 74 L 99 Oxygen Delivery 11/02/24 12:02 11/02/24 12:15 11/02/24 13:29 Temperature 36.6 C Pulse Rate 91 112 H 64 Respiratory Rate 13 13 16 Blood Pressure 150/83 H 131/77 Pulse Oximetry 100 Oxygen Delivery 11/02/24 13:59 11/02/24 14:15 11/02/24 14:30 Temperature Pulse Rate 56 L 61 55 L Respiratory Rate Blood Pressure 108/72 126/69 119/72 Pulse Oximetry Oxygen Delivery 11/02/24 14:45 11/02/24 15:00 11/02/24 15:15 Temperature Pulse Rate 71 51 L 62 Respiratory Rate Blood Pressure 118/77 127/62 116/64 Pulse Oximetry Oxygen Delivery 11/02/24 15:30 11/02/24 15:45 11/02/24 16:00 Temperature Pulse Rate 56 L 64 63 Respiratory Rate Blood Pressure 107/63 113/56 L 111/53 L Pulse Oximetry Oxygen Delivery 11/02/24 16:00 11/02/24 16:15 11/02/24 16:30 Temperature Pulse Rate 65 65 60 Respiratory Rate Blood Pressure 99/60 L 99/60 L Pulse Oximetry Oxygen Delivery 11/02/24 16:45 11/02/24 17:00 11/02/24 17:15 Temperature Pulse Rate 58 L 69 59 L Respiratory Rate Blood Pressure 107/48 L 110/63 122/60 Pulse Oximetry Oxygen Delivery 11/02/24 17:30 11/02/24 17:45 11/02/24 18:00 Temperature Pulse Rate 60 72 60 Respiratory Rate Blood Pressure 102/59 L 118/71 Pulse Oximetry Oxygen Delivery 11/02/24 18:02 11/02/24 18:08 11/02/24 20:00 Temperature 36.7 C 36.6 C Pulse Rate 66 74 65 Respiratory Rate 16 16 Blood Pressure 109/58 L 111/82 109/61 Pulse Oximetry 100 100 Oxygen Delivery 11/02/24 20:00 11/02/24 20:00 11/02/24 22:00 Temperature Pulse Rate 65 74 67 Respiratory Rate 16 Blood Pressure Pulse Oximetry 100 Oxygen Delivery Room Air 11/02/24 23:12 11/02/24 23:53 11/03/24 00:00 Temperature 36.6 C Pulse Rate 67 55 L Respiratory Rate 16 Blood Pressure 113/50 L Pulse Oximetry 100 Oxygen Delivery Room Air 11/03/24 02:00 11/03/24 04:00 11/03/24 04:00 Temperature 36.9 C Pulse Rate 58 L 54 L Respiratory Rate 18 Blood Pressure 121/57 L Pulse Oximetry 98 Oxygen Delivery Room Air 11/03/24 04:00 11/03/24 05:54 11/03/24 08:00 Temperature Pulse Rate 53 L 55 L 59 L Respiratory Rate 18 Blood Pressure Pulse Oximetry 100 Oxygen Delivery Room Air 11/03/24 08:07 Temperature 37.2 C Pulse Rate 59 L Respiratory Rate 18 Blood Pressure 112/63 Pulse Oximetry 100 Oxygen Delivery Intake/Output Intake/Output: Intake & Output 10/31/24 11/01/24 11/02/24 11/03/24 23:59 23:59 23:59 23:59 Intake Total 250 850 Output Total 1999 Balance -1750 850 Meds/Results Medications: Active Medications Generic Name Dose Route Start Last Admin Trade Name Freq PRN Reason Stop Dose Admin Albumin Human 50 mls @ 999 mls/hr 11/02/24 11:14 Albutein IVPB 11/03/24 11:13 Q10M PRN HYPOTENSION Lidocaine/Prilocaine 1 each 11/02/24 11:18 11/02/24 13:18 Lidocaine/Prilocaine Cream 2.5-2.5% Tube TOPICAL 1 each WITH DIALYSIS PRN Administration for dialysis Protocol Radiology Results: ITS Impressions Chest X-Ray 11/02/24 08:57 IMPRESSION: 1. Mild streaky bibasilar atelectasis. No other acute cardiopulmonary disease. Labs Labs: Laboratory Results - last 24 hr 11/02/24 11/02/24 11/03/24 11:27 18:44 03:48 WBC 5.1 RBC 3.74 L Hgb 10.9 L Hct 37.1 L MCV 99.2 MCH 29.1 MCHC 29.4 L RDW 15.0 H Plt Count 176 MPV 9.3 Immature Gran % (Auto) 0.6 H Neut % (Auto) 38.1 L Lymph % (Auto) 47.0 H [place] % (Auto) 10.5 H Eos % (Auto) 2.6 Baso % (Auto) 1.2 Lymph # (Auto) 2.38 [place] # (Auto) 0.5 Eos # (Auto) 0.1 Baso # (Auto) 0.1 Abs Immat Gran (auto) 0.03 Absolute Neuts (auto) 1.9 Absolute Nucleated RBC 0.000 Nucleated RBC % 0.0 Sodium 137 Potassium 4.2 Chloride 98 Carbon Dioxide 30 Anion Gap 9 BUN 38 H D Creatinine 8.04 H Estim Creat Clear Calc 14 Estimated GFR 7 L Glucose 111 H POC Capillary Glucose 103 Calcium 8.4 Phosphorus 5.7 H Albumin 3.9 Hep Bs Antigen Negative Hep Bs Antibody Positive
--- NOTE | 2024-11-03 10:15 | P.CONNP_ITS ---
Assessment and Plan Assessment and plan (1) End stage renal disease: Code(s): N18.6 - End stage renal disease Status: Chronic Assessment and Plan: * HD yesterda * continue Tue/Tue/Tuesday dialysis schedule while hospitalized * follow electrolytes, volume status, and clearance * outpatient dialysis unit = [facility] * primary city designer = Dr. Bianchi (2) Atrial bigeminy: Code(s): I49.8 - Other specified cardiac arrhythmias Status: Acute Assessment and Plan: * as noted by telemetry/EKG on admission * Cardiology recommendations noted * no intervention needed (3) Hypertension: Qualifiers: Hypertension type: primary hypertension Qualified Code(s): I10 - Essential (primary) hypertension Code(s): I10 - Essential (primary) hypertension Status: Chronic Assessment and Plan: * reasonable control at this time * continue home medications * follow trend of hemodynamics (4) Anemia: Code(s): D64.9 - Anemia, unspecified Status: Chronic Assessment and Plan: * due to ESRD * Epogen with HD * follow trend of H/H (5) Asthma: Code(s): J45.909 - Unspecified asthma, uncomplicated Status: Chronic Assessment and Plan: * stable * no evidence of exacerbation * PRN inhaler use (6) Diabetes: Code(s): E11.9 - Type 2 diabetes mellitus without complications Status: Chronic Assessment and Plan: * follow accuchecks * glycemic control per hospitalist I will continue to follow the patient with you while he remains hospitalized and make further recommendations as deemed necessary. Thank you for allowing me to participate in the care of this patient. L History of Present Illness Reason for Consult Consult date: 11/03/24 Reason for consult: end stage renal disease Chief Complaint Chief complaint: missed dialysis,arrhythmia History of Present Illness Narrative: The patient is a very pleasant 64-year-old male with a past medical history as outlined below who presented to [facility] Emergency room from his outpatient dialysis unit for fluctuating heart rates and hypoxia. Apparently, when the patient presented to his outpatient dialysis clinic for his scheduled dialysis treatment yesterday, he initially had relative bradycardia. Reportedly, his heart rate dropped to as low as 30 beats per minute. Then, according to the dialysis nurses, his heart rate jumped up and he was quite tachycardic. Associated with these fluctuations in his heart rate were episodes of hypoxia with reported oxygen saturations of 70%. In spite of these issues, the patient self stated that he felt reasonably well and in no apparent distress. Given these issues, the dialysis staff called EMS and he was subsequently transported to the emergency room for further assessment. Workup and evaluation emergency room demonstrated the patient be hemodynamically stable but telemetry demonstrated evidence of bigeminy with normal sinus rhythm. There were no evidence of any ST elevations or depressions or findings concerning for ischemia. Formal EKG was done which demonstrated sinus bradycardia with premature atrial contractions with a prolonged QT interval.Routine blood work demonstrated a white blood cell count of 7.6, hemoglobin 12.1, platelet count 202, sodium 137, potassium 5.0, bicarb 25, BUN 63, creatinine 11.43, glucose 137, lactic acid 1.5, calcium 8.2, magnesium 2.6, normal LFTs, and an albumin of 4.5. His chest x-ray demonstrated mild streaky bibasilar atelectasis but no other evidence of acute cardiopulmonary disease. on further question of the patient, the only reported symptom he could come up with was may be some mild lightheadedness prior to his transfer to the ER. Given these constellation of symptoms, he was admitted to the hospital for further evaluation and cardiology evaluation. Since his admission, he was seen by Cardiology who feels that his atrial bigeminy/atrial ectopic activity is more likely premature atrial contractions with some non conduction resulting in short compensatory pauses. As he was otherwise asymptomatic in general they do not feel any further intervention is required at this time. Renal consultation was requested due to his end-stage renal disease.The patient is somewhat familiar to me as I took care of him several years ago during his last hospitalization here at [facility]. At that time, he was on peritoneal dialysis but was subsequently transition to hemodialysis on that last hospitalization here at [facility]. Since that time, he has been on hemodialysis on a Tuesday, Tuesday, Tuesday schedule at [facility] under the care of Dr. Bianchi. As far as I am aware, he is compliant with his dialysis treatments with relative stability in his monthly labs and stability in his fluid/volume status. As mentioned above, he presented to his outpatient dialysis clinic yesterday for his scheduled dialysis treatment but was subsequently transferred to the ER due to his tachycardia and subsequently did not receive his dialysis treatment at that time. He received dialysis yesterday afternoon here at [facility] and tolerated the procedure reasonably well. Currently, at the time my visit, he appears to be in no acute distress Review of Systems 2 Review of Systems: As per HPI. [facility] Past Medical History Medical History (Updated 11/03/24 @ 12:07 by Maite López MD) Diabetes Anemia End stage renal disease Hypertension Asthma End-stage renal disease on peritoneal dialysis Insulin dependent type 2 diabetes mellitus Hypertension Peritonitis, dialysis-associated Surgical History Surgical History History of umbilical hernia repair Amputation toe Presence of peritoneal dialysis catheter Family History Family History Father Diabetes mellitus Mother Diabetes mellitus Social History Social History Social History: Surrogate decision maker: Corry Andrews (mother) or Ana Andrews (sister). Code status: Full code. Smoking status: Never smoker Second hand tobacco smoke exposure: No Alcohol intake: never Substance use: current Substance use type: marijuana Last use: 10/19/24 Lack of Transportation: No Lack of Food: Never True Current Housing: I Have Housing Concerned About Future Housing: No Difficulty Paying Gas/Electric Bills: No Difficulty Paying for Meds: No Currently Unemployed: No Education: High School Diploma/GED Difficulty w/ Childcare or Family Care: No Additional living arrangements comments: Lives in [place] with his significant other of many years. He has 3 grown children. Additional occupation/education comments: Disabled. Spiritual care concerns: No Meds Home Medications and Allergies Home Medications ?Medication ?Instructions ?Recorded ?Confirmed ?Type albuterol sulfate 90 mcg/actuation 2 puff inhalation B ID PRN Adequate 05/03/21 11/02/24 History aerosol inhaler Ventilation calcium acetate(phosphat bind) 667 2,001 mg PO TIDWMEA L 05/03/21 11/02/24 History mg capsule vitamin B complex-vitamin C-folic 1 tablet PO DAILY 11/02/24 History acid 0.8 mg tablet (Christiana-Mirta) aspirin 81 mg chewable tablet 81 mg PO DAILY 11/02/24 11/02/24 History loratadine 10 mg tablet 10 mg PO Q24H 11/02/2411/02 History Allergies Allergy/AdvReac Type Severity Reaction Status Date / Time shellfish AdvReac Severe Vomiting Uncoded 11/02/24 15:48 Vital Signs Vital Signs Temp Pulse Resp BP Pulse Ox O2 Del Method 11/03/24 11:56 97.9 F 80 14 121/57 L 97 11/03/24 10:00 61 11/03/24 08:07 98.9 F 59 L 18 112/63 100 11/03/24 08:00 65 11/03/24 08:00 59 L 18 100 Room Air 11/03/24 05:54 55 L 11/03/24 04:00 53 L 11/03/24 04:00 98.4 F 54 L 18 121/57 L 98 11/03/24 04:00 Room Air 11/03/24 02:00 58 L 11/03/24 00:00 55 L 11/02/24 23:53 Room Air 11/02/24 23:12 98 F 67 16 113/50 L 100 11/02/24 22:00 67 11/02/24 20:00 74 11/02/24 20:00 65 16 100 Room Air 11/02/24 20:00 98 F 65 16 109/61 100 11/02/24 18:08 98.1 F 74 16 111/82 100 11/02/24 18:02 66 109/58 L 11/02/24 18:00 60 11/02/24 17:45 72 118/71 11/02/24 17:30 60 102/59 L 11/02/24 17:15 59 L 122/60 11/02/24 17:00 69 110/63 11/02/24 16:45 58 L 107/48 L 11/02/24 16:30 60 99/60 L 11/02/24 16:15 65 99/60 L 11/02/24 16:00 65 11/02/24 16:00 63 111/53 L 11/02/24 15:45 64 113/56 L 11/02/24 15:30 56 L 107/63 11/02/24 15:15 62 116/64 11/02/24 15:00 51 L 127/62 11/02/24 14:45 71 118/77 11/02/24 14:30 55 L 119/72 11/02/24 14:15 61 126/69 11/02/24 13:59 56 L 108/72 11/02/24 13:29 97.9 F 64 16 131/77 100 11/02/24 12:15 112 H 13 11/02/24 12:02 91 13 150/83 H Exam 2 Narrative: GENERAL APPEARANCE: well developed well nourished male in no acute distress HEENT: normocephalic, atraumatic, normal conjunctiva and sclera, nares patient NECK: no lymphadenopathy, thyromegaly, or JVD MOUTH: normal lips, teeth, and gums CARDIOVASCULAR: RRR, normal S1 and S2, no rub RESPIRATORY: clear to ausculation ABDOMEN: soft, nontender, nondistended, positive bowel sounds present EXTREMITIES: no evidence of cyanosis, clubbing, or edema NEUROLOGICAL: alert and oriented x 3; CN II - XII intact bilaterally; no focal deficits noted Results Lab Results 11/03/24 03:48 11/03/24 03:48 Lab results: Most recent lab results Calcium 8.2 mg/dL (8.4-10.2) L 11/02/24 08:36 Magnesium 2.6 mg/dL (1.6-2.3) H 11/02/24 08:36
--- NOTE | 2024-11-03 11:12 | P.DS_ITS ---
DS: Admitting Diagnosis Discharge Date 11/03/2024 Admitting Diagnosis Arrhythmia DS: Discharge Diagnosis Discharge Diagnosis (1) Hypertension: Qualifiers: Hypertension type: primary hypertension Qualified Code(s): I10 - Essential (primary) hypertension Code(s): I10 - Essential (primary) hypertension Status: Chronic (2) Abnormal electrocardiogram [ECG] [EKG]: Code(s): R94.31 - Abnormal electrocardiogram [ECG] [EKG] Status: Acute (3) Insulin dependent type 2 diabetes mellitus: Code(s): E11.9 - Type 2 diabetes mellitus without complications; Z79.4 - group home (current) use of insulin Status: Acute (4) End stage renal disease: Code(s): N18.6 - End stage renal disease Status: Chronic DS: Summary Hospital Course Hospital Course: This is a 64-year-old male who presented from dialysis center where he was noted to have low heart rate. He states he might have felt a little lightheaded. Otherwise he felt normal. Due to concern with low heart rate which was down in 30s he was sent to the ED for evaluation. In the ED his vitals were stable however for telemetry was showing atrial bigeminy with normal sinus rhythm. No acute ST-T changes were noted. Laboratory evaluation showed WBC of 7.6 hemoglobin of 12.1 platelet count of 202. Chem panel showed sodium 137 potassium 5.0 chloride 98 bicarbonate 25 BUN 63 creatinine 11.43. Lactate was normal at 1.5 glucose 137. Calcium 8.2 magnesium 2.6. LFTs were normal. TSH was 1.9 normal. Chest x-ray with mild streaky bibasilar atelectasis with no acute cardiopulmonary disease. EKG showed sinus bradycardia with premature atrial contractions with prolonged QT interval. He was admitted in this setting for further treatment. Atrial bigeminy asymptomatic. Continue to monitor cardiology consultation and suggested no further workup but rather follow up as op basis. Hypertension blood pressure reasonably controlled continue home medication Type 2 diabetes End-stage renal disease on hemodialysis nephrology consulted for inpatient hemodialysis and underwent inpatient hemodialysis on 11/02/2024. He will continue this as an outpatient basis as previously scheduled. DVT prophylaxis heparin subQ Code status full code Time Spent with Patient Time attestation: Total time spent providing and/or coordinating discharge services: Exam Narrative: GENERAL: The patient is well developed, not in acute distress HEENT: Nonicteric sclerae, PERRLA, EOMI. Oropharynx clear. Moist mucous membranes. Conjunctivae appear well perfused. CHEST: Chest wall is nontender. HEART: Regular rate and rhythm without murmur, rubs, or gallops LUNGS: Clear to auscultation bilaterally. no respiratory distress ABDOMEN: Soft, positive bowel sounds, non-tender, no organomegaly. SKIN: No rash, no excessive bruising, petechiae, or purpura. NEUROLOGIC: Cranial nerves II-XII intact, alert and oriented x 3, no gross motor deficits EXTREMITIES: no edema, cyanosis or clubbing DS: Data Data Completed and Pending Labs on day of discharge: Labs from last 24 hours 11/03/24 11/02/24 11/02/24 03:48 18:44 11:27 WBC 5.1 RBC 3.74 L Hgb 10.9 L Hct 37.1 L MCV 99.2 MCH 29.1 MCHC 29.4 L RDW 15.0 H Plt Count 176 MPV 9.3 Immature Gran % (Auto) 0.6 H Neut % (Auto) 38.1 L Lymph % (Auto) 47.0 H [place] % (Auto) 10.5 H Eos % (Auto) 2.6 Baso % (Auto) 1.2 Lymph # (Auto) 2.38 [place] # (Auto) 0.5 Eos # (Auto) 0.1 Baso # (Auto) 0.1 Abs Immat Gran (auto) 0.03 Absolute Neuts (auto) 1.9 Absolute Nucleated RBC 0.000 Nucleated RBC % 0.0 Sodium 137 Potassium 4.2 Chloride 98 Carbon Dioxide 30 Anion Gap 9 BUN 38 H D Creatinine 8.04 H Estim Creat Clear Calc 14 Estimated GFR 7 L Glucose 111 H POC Capillary Glucose 103 Calcium 8.4 Phosphorus 5.7 H Albumin 3.9 Hep Bs Antigen Negative Hep Bs Antibody Positive Imaging Radiologist's impression: ITS Impressions Chest X-Ray 11/02/24 08:57 IMPRESSION: 1. Mild streaky bibasilar atelectasis. No other acute cardiopulmonary disease. Discharge Plan Discharge Attending physician on discharge: Chriss Sanchez Consulting providers: Juvencio Vigil Sriraj T. Discharging Clinician: Chriss Sanchez Anticipated Discharge Date/Time: 11/03/24 11:14 Patient Disposition: Home Activity: as tolerated Diet: renal Patient Instructions: Antibiotic Form Patient Language: Ghanaian Stand Alone Forms: General Discharge Information Follow-up/Referrals: PHYSICIAN NOT ON STAFF,NONSTAFF [Primary Care Provider] - 1 Week Shelly Vigil MD [Physician, Cardiology] - 2 Weeks Discharge Medications: Continued Christiana-Mirta 0.8 mg tablet 1 tablet PO DAILY albuterol sulfate 90 mcg/actuation HFA aerosol inhaler 2 puff INHALATION BID PRN (Reason: Adequate Ventilation) calcium acetate(phosphat bind) 667 mg capsule 2,001 mg PO TIDWMEAL aspirin 81 mg tablet,chewable 81 mg PO DAILY loratadine 10 mg tablet 10 mg PO Q24H Date of admission: 11/02/24 10:44 Primary Care Provider: PHYSICIAN NOT ON STAFF,NONSTAFF Admitting Provider: Chriss Sanchez Attending physician on admission: Chriss Sanchez Condition: Improved
== END 2024-11-03 13:13 | disposition home or self-care (01) ==
LOC: ANHED 08:29 → ANHIMU 12:08
PROVIDERS: Internal Medicine Nephrology; Admitting Provider Internal Medicine; Emergency Provider Emergency Medicine; Visit Provider Internal Medicine
DX: I49.8 Other specified cardiac arrhythmias (principal); R94.31 Abnormal electrocardiogram [ECG] [EKG]; E11.22 Type 2 diabetes mellitus with diabetic chronic kidney disease; I12.0 Hypertensive chronic kidney disease with stage 5 chronic kidney disease or end stage renal disease; N18.6 End stage renal disease; D63.1 Anemia in chronic kidney disease; Z99.2 Dependence on renal dialysis; J45.909 Unspecified asthma, uncomplicated; Z79.4 Long term (current) use of insulin
CPT/HCPCS: 36415; 71046; 80053; 80069; 82948; 83605; 83735; 84443; 85025; 85610; 85730; 86706; 87340; 93005; 99285; G0257; G0378; J1644; J7030